=== PATIENT | male | born 1945 | race Hispanic/Latino ===

== ENCOUNTER → 2020-11-12 | Outpatient (CLI) | payer OTHER | END | disposition home or self-care (01) | LOC: RAH 14:41 | PROVIDERS: ATTEND Physical Medicine & Rehabilitation | DX: S99.921A Unspecified injury of right foot, initial encounter (principal); M19.012 Primary osteoarthritis, left shoulder; M81.0 Age-related osteoporosis without current pathological fracture; M79.89 Other specified soft tissue disorders; M75.42 Impingement syndrome of left shoulder; X58.XXXA Exposure to other specified factors, initial encounter; Y93.89 Activity, other specified; Y92.89 Other specified places as the place of occurrence of the external cause; Y99.8 Other external cause status | CPT/HCPCS: 73030; 73630 ==

== ENCOUNTER → 2022-06-25 | Outpatient (CLI) | payer OTHER | END | disposition home or self-care (01) | LOC: RAH 13:42 | PROVIDERS: ATTEND Physical Medicine & Rehabilitation | DX: M47.816 Spondylosis without myelopathy or radiculopathy, lumbar region (principal); M51.37 Other intervertebral disc degeneration, lumbosacral region; M48.07 Spinal stenosis, lumbosacral region; G82.22 Paraplegia, incomplete; Z88.8 Allergy status to other drugs, medicaments and biological substances | CPT/HCPCS: 72148 ==

== ENCOUNTER → 2022-07-31 | Outpatient (CLI) | payer OTHER | END | disposition home or self-care (01) | LOC: RAH 10:37 | PROVIDERS: ATTEND Physical Medicine & Rehabilitation | DX: M48.02 Spinal stenosis, cervical region (principal); M47.812 Spondylosis without myelopathy or radiculopathy, cervical region | CPT/HCPCS: 72141 ==

== ENCOUNTER → 2022-11-26 | Outpatient (CLI) | payer OTHER | END | disposition home or self-care (01) | LOC: RAH 12:49 | PROVIDERS: ATTEND Internal Medicine | DX: R22.42 Localized swelling, mass and lump, left lower limb (principal) | CPT/HCPCS: 93971 ==

== ENCOUNTER 2024-07-15 07:54 | Inpatient (IN) | payer OTHER ==
[2024-07-12 11:40] VITALS: BP 168/79; PULSE 62; RESP 18; TEMP 97.3
[2024-07-12 11:40] LABS: BASOPHILS # (AUTO) 0.05 K/uL (0.00-0.20); BASOPHILS % (AUTO) 0.8 % (0.0-5.0); EOSINOPHILS # (AUTO) 0.14 K/uL (0.00-0.70); EOSINOPHILS % (AUTO) 2.3 % (0.0-8.0); HEMATOCRIT 36.7 % (42-54); IMMATURE GRANULOCYTE ABSOLUTE 0.01 K/uL (0-1); LYMPHOCYTES # (AUTO) 0.9 K/uL (1.0-4.8); LYMPHOCYTES % (AUTO) 14.9 % (21.0-51.0); MEAN CORPUSCULAR HEMOGLOBIN 26.4 pg (27.0-33.0); MEAN CORPUSCULAR HGB CONC 32.2 g/dL (32.0-36.0); MEAN CORPUSCULAR VOLUME 82.1 fL (79-99); MONOCYTES # (AUTO) 0.3 K/uL (0.1-1.0); MONOCYTES % (AUTO) 5.6 % (3.0-13.0); NEUTROPHILS # (AUTO) 4.7 K/uL (1.8-7.7); NEUTROPHILS % (AUTO) 76.2 % (40.0-77.0); PLATELET COUNT (AUTO) 259 K/uL (130-400); RED BLOOD CELL COUNT(AUTO) 4.47 MIL/uL (4.50-6.20); RED CELL DISTRIBUTION WIDTH 14.8 % (11.0-15.5); WHITE BLOOD COUNT (AUTO) 6.1 K/uL (4.8-10.8)
--- NOTE | 2024-07-12 11:54 | EKG ---
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
[2024-07-12 12:04] LABS: INR <= 0.93 (0.85-1.15); PROTHROMBIN TIME 10.5 SEC (9.6-11.6)
[2024-07-12 12:05] LABS: PARTIAL THROMBOPLASTIN TIME 31.7 SEC (26.3-35.5)
[~2024-07-15] VITALS: Ht 167.6 cm; Wt 71.2 kg
[2024-07-15] VITALS (28 sets, daily range): BP systolic 121–160; BP diastolic 56–76; PULSE 52–83; RESP 14–19; TEMP 96.9–98.9
[2024-07-15 08:59] LABS: CREATININE 0.8 mg/dL (0.5-1.3); POTASSIUM 4.2 mmol/L (3.5-5.1)
[2024-07-15] MEDS ORDERED: amlodipine PO (08:59)
[2024-07-15] MEDS ORDERED: METF-444 PO ×2 (08:59)
[2024-07-15] MEDS ORDERED: levothyroxine (08:59)
[2024-07-15] MEDS ORDERED: LOSA1TAB54 PO (08:59)
[2024-07-15] MEDS: ceFAZolin SODIUM 2 GM VIAL ONE ×2 (09:08)
[2024-07-15] MEDS: 0.9%NACL 1000ML 1,000 ML IV ONE ×2 (09:08)
[2024-07-15] MEDS ORDERED: ondanSETRON 4MG INJ ONE (10:15)
[2024-07-15] MEDS ORDERED: dexaMETHasone SOD PHOSPHATE 4 MG/ML 1ML VIAL ONE (10:15)
[2024-07-15] MEDS ORDERED: proPOFol 10 MG/ML 20ML VIAL IV ONE (10:15)
[2024-07-15] MEDS ORDERED: LIDOCAINE PF 100MG/5ML (2%) SYRINGE 5ML ONE (10:15)
[2024-07-15] MEDS ORDERED: rocuRONium bROMide 10MG/1ML 5ML VL ONE (10:16)
[2024-07-15] MEDS ORDERED: FENTanyl CITRate PF 50 MCG/1 ML 2ML VIAL ONE (10:16)
[2024-07-15] MEDS: ceFAZolin SODIUM 2 GM VIAL IVPB ONE (10:31)
[2024-07-15] MEDS ORDERED: NEOSTIGMINE METHYLSULFATE 1MG/ML IV ONE (11:32)
[2024-07-15] MEDS ORDERED: GLYCOPYRROLATE 0.2 MG/ML 5 ML VIAL ONE (11:32)
--- NOTE | 2024-07-15 14:03 | OP ---
Operative Note: DATE OF PROCEDURE: 07/15/24 SURGEON: ANISA BEJARANO MD MANAGER RFID: [] ANESTHESIA: general ANESTHESIOLOGIST/FILM CRITIC: Gerber ABREU PREOPERATIVE DIAGNOSIS: Nonhealing sacral ulcer measuring 5 x 6 cm POSTOPERATIVE DIAGNOSIS: Same SYNOPSIS: [] PROCEDURE: Sharp excisional debridement of sacral ulcer of skin and subcutaneous tissue, skin advancement flaps of 80 sq cm ESTIMATED BLOOD LOSS: 10 cc INDICATIONS: Nonhealing ulcer needing debridement and skin advancement flaps for closure Devices left in place: Seven [place] flat drain DESCRIPTION OF PROCEDURE: Patient was brought to the operating room placed on the operating table in a supine position. Once general endotracheal anesthesia was achieved patient was positioned into a prone position and his gluteal and perirectal area were prepped and draped in sterile fashion. I then proceeded to evaluate the sacral ulcer. The inferior edge of the ulcer is at the anal verge. The ulcer is flat and has granulation tissue and rolled edges. It measures 5 x 6 cm in size. I then proceeded to sharply debride the edges to remove the rolled edges of the entire diameter of the ulcer. And then proceeded to create a midline incision through the ulcer to expose subcutaneous tissue. Then created full-thickness skin and subcutaneous tissue flaps on to each side of the buttocks. And inferiorly to the anal verge. Superiorly there was another scar area from a previous ulcer that had already healed and we released the scar at the sub cutaneous tissue level. Once we had done the advancement flaps I measured the tissue planes and we had extended it to a 10 x 8 cm in size within each direction making the advancement of 80 centimeters squared. I then started to take the edges of the granulation tissue off the skin edge on the inferior lateral borders of the ulcer and brought this healthy skin and approximated it to the anal verge that way there was healthy tissue at the anal verge and not ulcer edges. We approximated the skin to the anal verge with interrupted nylon sutures in horizontal mattress. Once that was done I then proceeded to advance the muscle and subcutaneous tissue at the deep fascial planes with interrupted horizontal mattress 3-0 Vicryl sutures. Placed a drain over top of the layer. The granulation tissue that had been exposed in the ulcer was completely undermined at this point and decision is made to roll it under to the subcutaneous tissue to allow more thickness to the tissue at the midline. And to be able to have this tissue heal I then debrided all the granulation tissue with sharp debridement to create new healing. And then I folded it underneath on each side securing it laterally with 2-0 Vicryl suture. I then proceeded to place deep dermal sutures at the midline to close the defect. And this was done with horizontal mattress 2-0 Vicryl sutures. Skin was then closed with horizontal mattress nylon sutures in interrupted fashion. At the end of the procedure the wound was completely closed. Drain was secured in place. All counts were correct x2 at the end of the procedure. Patient tolerated the procedure well. ANISA BEJARANO MD Jul 15, 2024 14:03
[2024-07-15] MEDS: doCUSate SODIUM 100 MG CAP PO SCH (20:38)
[2024-07-16] VITALS: BP 115/52; PULSE 70; RESP 18; TEMP 98.1
[2024-07-16 04:00] VITALS: BP 124/64; PULSE 63; RESP 17; TEMP 97.7
--- NOTE | 2024-07-16 07:34 | PN ---
Postop day one from sacral wound closure with advancement flaps. No acute events overnight. JAMARI drain with 10 cc output. Vitals stable Wound with dressing intact. Not removed JAMARI drain in place Assessment and plan mutual fund manager to work today on placement. Patient needs assistance to be able to not put any pressure on the incision to have the full-thickness advancement flaps heal. Patient needs to be lateral and reposition every 3 hours to avoid any new ulcers developing. Him and his can not do this at home and he will need placement. As soon as placement is available we will discharge patient. Vitals/Labs Vital Signs Date Time Temp Pulse Resp B/P (MAP) Pulse Ox O2 Delivery O2 Flow Rate FiO2 07/16/24 04:00 97.7 63 17 124/64 96 Room Air 07/15/24 20:00 0 21 Laboratory Tests 07/15/24 08:43 Medications Current Medications Cefazolin Sodium 2 gm STK-MED ONCE .ROUTE; Start 07/15/24 at 07:43; Stop 07/15/24 at 07:49; Status DC Sodium Chloride 1,000 ml @ As Directed STK-MED ONCE IV; Start 07/15/24 at 07:43; Stop 07/15/24 at 07:49; Status DC Cefazolin Sodium 2 gm STK-MED ONCE .ROUTE; Start 07/15/24 at 07:44; Stop 07/15/24 at 07:49; Status DC Sodium Chloride 1,000 ml @ As Directed STK-MED ONCE IV Last administered on 07/15/24at 09:08; Start 07/15/24 at 07:44; Stop 07/15/24 at 07:49; Status DC Lidocaine HCl 100 mg STK-MED ONCE .ROUTE; Start 07/15/24 at 10:15; Stop 07/15/24 at 10:15; Status DC Dexamethasone Sodium Phosphate 4 mg STK-MED ONCE .ROUTE; Start 07/15/24 at 10:15; Stop 07/15/24 at 10:15; Status DC Ondansetron HCl 4 mg STK-MED ONCE .ROUTE; Start 07/15/24 at 10:15; Stop 07/15/24 at 10:15; Status DC Propofol 200 mg STK-MED ONCE IV; Start 07/15/24 at 10:15; Stop 07/15/24 at 10:16; Status DC Rocuronium [place] 50 mg STK-MED ONCE .ROUTE; Start 07/15/24 at 10:16; Stop 07/15/24 at 10:16; Status DC Fentanyl Citrate 100 mcg STK-MED ONCE .ROUTE; Start 07/15/24 at 10:16; Stop 07/15/24 at 10:16; Status DC Cefazolin Sodium 2 gm STK-MED ONCE IVPB Last administered on 07/15/24at 10:31; Start 07/15/24 at 10:31; Stop 07/15/24 at 11:12; Status DC Glycopyrrolate 1 mg STK-MED ONCE .ROUTE; Start 07/15/24 at 11:32; Stop 07/15/24 at 11:32; Status DC Neostigmine Methylsulfate 10 mg STK-MED ONCE IV; Start 07/15/24 at 11:32; Stop 07/15/24 at 11:32; Status DC Acetaminophen 650 mg Q6H PRN PO; Start 07/15/24 at 19:30; Stop 08/14/24 at 19:29 Docusate Sodium 100 mg BID PO Last administered on 07/15/24at 20:38; Start 07/15/24 at 21:00; Stop 08/14/24 at 20:59 Metformin HCl 500 mg DAILYDINNER PO; Start 07/16/24 at 17:00; Stop 08/15/24 at 16:59 Miscellaneous Medication 1 tab DAILY PO; Start 07/16/24 at 09:00; Stop 08/15/24 at 08:59; Status UNV Amlodipine Besylate 5 mg DAILY PO; Start 07/16/24 at 09:00; Stop 08/15/24 at 08:59 Losartan Potassium 100 mg DAILY PO; Start 07/16/24 at 09:00; Stop 08/15/24 at 08:59 Hydrochlorothiazide 25 mg DAILY PO; Start 07/16/24 at 09:00; Stop 08/15/24 at 08:59 ANISA BEJARANO MD Jul 16, 2024 07:34
[2024-07-16 08:00] VITALS: BP 124/57; PULSE 67; RESP 18; TEMP 98.5; O2SAT 98
[2024-07-16] MEDS ORDERED: NON-FORMULARY MEDICATION 1 EACH (Losartan/Hydrochlorothiazide (Losartan-Hctz 100-25 mg Tab PO SCH (09:00)
[2024-07-16] MEDS: hydroCHLOROthiazide 25 MG TABLET PO SCH (09:45)
[2024-07-16] MEDS: amLODIPine 5 MG TAB PO SCH (09:45)
[2024-07-16] MEDS: LoSARTan 100 MG TABLET PO SCH (09:46)
[2024-07-16 12:00] VITALS: BP 153/72; PULSE 66; RESP 18; TEMP 98.1
--- NOTE | 2024-07-16 14:49 | NUR ---
INITIAL ASSESSMENT Patient lives with spouse, Anna Cheung. [facility] No PHC services. DME: wheelchair, electric & manual wheelchair, shower bench, glucometer (no insulin). Patient needs help with ADLs but is able to drive. Family assists as needed. PCP is Dr. Kenisha Henry. Pharmacy is [facility] on [address] [facility]. Patient has no issues with having stable fpc to live in or transportation. He and spouse have lived in their home for some time. No concerns voiced regarding not having enough food in the home. No safety concerns voiced regarding returning home. DCP is home. Addendum: 07/16/24 at 1452 by DAVIDSON SIM Amended: Links added.
--- NOTE | 2024-07-16 14:52 | NUR ---
EMERGENCY CONTACT Anna Cheung (spouse) [phone]
[2024-07-16 16:00] VITALS: BP 158/69; PULSE 72; RESP 18; TEMP 98.9
[2024-07-16] MEDS: metFORmin HCL 500 MG TABLET PO SCH (16:47)
[2024-07-16 20:00] VITALS: BP 141/49; PULSE 83; RESP 20; TEMP 99.8; O2SAT 98
[2024-07-17] VITALS: BP 128/64; PULSE 83; RESP 20; TEMP 98.9
[2024-07-17 04:00] VITALS: BP 107/62; PULSE 95; RESP 20; TEMP 98.7
[2024-07-17 08:00] VITALS: BP 126/69; PULSE 79; RESP 16; TEMP 98.7; O2SAT 97
--- NOTE | 2024-07-17 10:58 | NUR ---
cm note met with pt and spouse and discussed md orders for snf referral for wound care, daily dressings and drain management. provided list of in network snfs, requested to ask md regarding snfs, call made to her PCP dr. Henry, and updated her that pt doesn't wish to go to [facility]) and would like for her to recommend a facility. dr Henry said any in network is fine, but if family doesnt have a preference then and do not want [facility]) then [facility] if in network. updated pt and spouse and this and they state they will speak to their family and decide. and call cm back.
[2024-07-17 12:00] VITALS: BP 129/49; PULSE 78; RESP 18; TEMP 98.2
[2024-07-17 15:35] VITALS: BP 144/75; PULSE 84; RESP 16; TEMP 99.6
--- NOTE | 2024-07-17 16:58 | NUR ---
cm note followup made with pt regarding decision for snf referral. states that he needs more time to decide due to family is reviewing list and is requesting CM to followup tomorrow.
[2024-07-17 20:00] VITALS: BP 152/61; PULSE 80; RESP 17; TEMP 100; O2SAT 93
[2024-07-17] MEDS: acetaMINOPHEN 325 MG TAB PO PRN (20:51)
[2024-07-18] VITALS: BP 110/64; PULSE 84; RESP 16; TEMP 99.7
[2024-07-18 04:00] VITALS: BP 105/47; PULSE 68; RESP 16; TEMP 98.9
[2024-07-18 08:00] VITALS: BP 113/56; PULSE 78; RESP 19; TEMP 100.4; O2SAT 96
[2024-07-18] MEDS: SENNOSIDES 8.6 MG TABLET PO PRN (09:25)
[2024-07-18 12:00] VITALS: BP_SYST 126; BP_SYST 147; BP_DIAS 62; BP_DIAS 72; PULSE 65; PULSE 70; RESP 19; TEMP 97.8; TEMP 98.5
[2024-07-18] MEDS: LACTULOSE 20 GM/30 ML UDCUP PO PRN (12:40)
[2024-07-18] MEDS: BisaCODYL 10 MG SUPP.RECT RC PRN (15:30)
[2024-07-18 16:00] VITALS: BP 116/62; PULSE 88; RESP 19; TEMP 98.4
[2024-07-18 20:00] VITALS: BP 122/52; PULSE 87; RESP 18; TEMP 99.5; O2SAT 97
[2024-07-19] VITALS (7 sets, daily range): BP systolic 94–126; BP diastolic 43–67; PULSE 70–83; RESP 17–20; TEMP 97.9–101; O2SAT 98
--- NOTE | 2024-07-19 14:22 | PN ---
This is an 78-year-old male who is POD # four from skin flap for sacral ulcer. Doing well. Wound is clean dry and intact. Patient is okay for discharge from a surgical standpoint. Currently pending placement. Continue with current wound care. Vitals/Labs Vital Signs Date Time Temp Pulse Resp B/P (MAP) Pulse Ox O2 Delivery O2 Flow Rate FiO2 07/19/24 11:40 98.1 75 20 112/53 100 Room Air 21 07/19/24 08:00 0 GEORGE DAVIES DO Jul 19, 2024 14:22
[2024-07-20] VITALS: BP 92/45; PULSE 72; RESP 17; TEMP 99.1
[2024-07-20 03:49] VITALS: BP 108/54; PULSE 72; RESP 17; TEMP 98.1
[2024-07-20 08:00] VITALS: BP 98/46; PULSE 72; RESP 18; TEMP 97.8; O2SAT 97
[2024-07-20 12:00] VITALS: BP 115/50; PULSE 68; RESP 18; TEMP 98.1
--- NOTE | 2024-07-20 16:56 | PN ---
Status post advancement flap of the sacral area. No acute events overnight. Patient tolerating his diet. Incision reviewed. There is some drainage from the incision that is serous no cellulitis. But it staying moist. Assessment and plan Change dressing twice a day and keep a dry dressing and clean with a Vashe. If wet change as needed p.r.n. we need to keep the skin clean and intact.. Patient is okay to sit upright when eating. And then beyond the side without any pressure onto the midline wound. JAMARI drain with sanguinous output no signs of purulence. No signs of infection. Patient did have a temperature of a 100.1, we will start incentive spirometer. Still pending on placement to be approved. Once placement is approved okay to discharge. Vitals/Labs Vital Signs Date Time Temp Pulse Resp B/P (MAP) Pulse Ox O2 Delivery O2 Flow Rate FiO2 07/20/24 12:00 98.1 68 18 115/50 100 Room Air 07/19/24 20:00 0 21 Medications Current Medications Cefazolin Sodium 2 gm STK-MED ONCE .ROUTE; Start 07/15/24 at 07:43; Stop 07/15/24 at 07:49; Status DC Sodium Chloride 1,000 ml @ As Directed STK-MED ONCE IV; Start 07/15/24 at 07:43; Stop 07/15/24 at 07:49; Status DC Cefazolin Sodium 2 gm STK-MED ONCE .ROUTE; Start 07/15/24 at 07:44; Stop 07/15/24 at 07:49; Status DC Sodium Chloride 1,000 ml @ As Directed STK-MED ONCE IV Last administered on 07/15/24at 09:08; Start 07/15/24 at 07:44; Stop 07/15/24 at 07:49; Status DC Lidocaine HCl 100 mg STK-MED ONCE .ROUTE; Start 07/15/24 at 10:15; Stop 07/15/24 at 10:15; Status DC Dexamethasone Sodium Phosphate 4 mg STK-MED ONCE .ROUTE; Start 07/15/24 at 10:15; Stop 07/15/24 at 10:15; Status DC Ondansetron HCl 4 mg STK-MED ONCE .ROUTE; Start 07/15/24 at 10:15; Stop 07/15/24 at 10:15; Status DC Propofol 200 mg STK-MED ONCE IV; Start 07/15/24 at 10:15; Stop 07/15/24 at 10:16 ; Status DC Rocuronium [place] 50 mg STK-MED ONCE .ROUTE; Start 07/15/24 at 10:16; Stop 07/15/24 at 10:16; Status DC Fentanyl Citrate 100 mcg STK-MED ONCE .ROUTE; Start 07/15/24 at 10:16; Stop 07/15/24 at 10:16; Status DC Cefazolin Sodium 2 gm STK-MED ONCE IVPB Last administered on 07/15/24at 10:31; Start 07/15/24 at 10:31; Stop 07/15/24 at 11:12; Status DC Glycopyrrolate 1 mg STK-MED ONCE .ROUTE; Start 07/15/24 at 11:32; Stop 07/15/24 at 11:32; Status DC Neostigmine Methylsulfate 10 mg STK-MED ONCE IV; Start 07/15/24 at 11:32; Stop 07/15/24 at 11:32; Status DC Acetaminophen 650 mg Q6H PRN PO Last administered on 07/17/24at 20:51; Start 07/15/24 at 19:30; Stop 08/14/24 at 19:29 Docusate Sodium 100 mg BID PO Last administered on 07/20/24at 10:14; Start 04/29 at 21:00; Stop 08/14/24 at 20:59 Metformin HCl 500 mg DAILYDINNER PO Last administered on 07/19/24at 19:39; Start 07/16/24 at 17:00; Stop 08/15/24 at 16:59 Miscellaneous Medication 1 tab DAILY PO; Start 07/16/24 at 09:00; Stop 08/15/24 at 08:59; Status UNV Amlodipine Besylate 5 mg DAILY PO Last administered on 07/19/24at 14:32; Start 07/16/24 at 09:00; Stop 08/15/24 at 08:59 Losartan Potassium 100 mg DAILY PO Last administered on 07/18/24at 15:30; Start 07/16/24 at 09:00; Stop 08/15/24 at 08:59 Hydrochlorothiazide 25 mg DAILY PO Last administered on 07/18/24at 15:30; Start 07/16/24 at 09:00; Stop 08/15/24 at 08:59 Sennosides 3 tab DAILY PRN PO Last administered on 07/18/24at 09:25; Start 07/17/24 at 11:00; Stop 08/16/24 at 10:59 Lactulose 20 gm BID PRN PO Last administered on 07/18/24at 12:40; Start 07/17/24 at 11:00; Stop 08/16/24 at 10:59 Bisacodyl 10 mg DAILY PRN RC Last administered on 07/18/24at 15:30; Start 07/17/24 at 11:00; Stop 08/16/24 at 10:59 Home Med (linzess 290 MCG) DAILYPRN PRN PO Last administered on 07/18/24at 11:39; Start 07/17/24 at 12:30; Stop 08/16/24 at 12:29 ANISA BEJARANO MD Jul 20, 2024 16:56
[2024-07-20 21:16] VITALS: BP 123/55; PULSE 96; RESP 18; TEMP 99.6
[2024-07-21] VITALS (7 sets, daily range): BP systolic 104–155; BP diastolic 45–70; PULSE 75–94; RESP 18–21; TEMP 98–101.5
--- NOTE | 2024-07-21 16:50 | PN ---
GENERAL SURGERY PROGRESS NOTE Date/Time Patient Seen: 07/21/2024 2162 Problem List: Sacral ulcer status post flap coverage Interval History: Patient has no complaints. Nursing reports that there is a foul odor to the NG tube output. Output is under the otherwise unchanged. Nursing also reports that the patient seems a little less energetic today than usual. Current Medications Medications (Trade) Dose Ordered Sig/Luz Maria Route Start Time Stop Time Status Last Admin Dose Admin Amlodipine Besylate (NorvASC 5MG TAB) 5 mg DAILY PO 07/16/24 09:00 08/15/24 08:59 07/20/24 17:30 5 MG Docusate Sodium (COLace 100MG CAP) 100 mg BID PO 07/15/24 21:00 08/14/24 20:59 07/21/24 07:42 100 MG Hydrochlorothiazide (hydroCHLOROthiazide 25MG) 25 mg DAILY PO 07/16/24 09:00 08/15/24 08:59 07/18/24 15:30 25 MG Losartan Potassium (CozAAR 100MG TAB) 100 mg DAILY PO 07/16/24 09:00 08/15/24 08:59 07/18/24 15:30 100 MG Metformin HCl (glucoPHAGE) 500 mg DAILYDINNER PO 07/16/24 17:00 08/15/24 16:59 07/20/24 17:30 500 MG Miscellaneous Medication (Losartan/ Hydrochlorothiazide (Losartan-Hctz 100-25 mg Tab)) 1 tab DAILY PO 07/16/24 09:00 08/15/24 08:59 UNV Physical Examination: GENERAL: No acute distress. HEAD: Normal with no signs of head trauma. LUNGS: Respirations nonlabored HEART: Regular rate and rhythm ABD: Soft, nondistended, nontender, no rebound, no guarding : Not examined Wound: Incision is clean dry and intact with JAMARI drain in place with ser osanguineous output EXT: Paraplegic SKIN: No rashes or lesions noted. NEURO: Awake, alert, and oriented x3. No focal sensory or strength deficits noted. Vital Signs (last 8hr) Date Time Temp Pulse Resp B/P (MAP) Pulse Ox O2 Delivery O2 Flow Rate FiO2 07/21/24 12:00 98.8 80 18 104/55 97 Room Air Laboratory: Chemistry Labs: Test 1/16/25 16:13 07/21/24 05:23 Range/Units Whole Blood Glucose 178 H 70-110 MG/DL Bedside Glucose Comment Notified Nurse Diagnostics / Radiology: No new imaging Impression and Plan: This is an 78-year-old male POD # six from flap coverage of sacral decubitus ulcer. Drainage from the wound is foul smelling and patient is a little lethargic. We will start Zosyn Q 8 hours. We will check CBC tomorrow. Continue with current wound care. Continue observation in the hospital. GEORGE DAVIES DO Jul 21, 2024 16:50
[2024-07-21] MEDS: ZOSYN 3.375GM +NS 50ML IV SCH (18:56)
[2024-07-22] VITALS (8 sets, daily range): BP systolic 95–142; BP diastolic 41–60; PULSE 72–81; RESP 16–20; TEMP 98.5–100.5; O2SAT 98
[2024-07-22 05:08] LABS: BASOPHILS # (AUTO) 0.05 K/uL (0.00-0.20); BASOPHILS % (AUTO) 0.6 % (0.0-5.0); EOSINOPHILS # (AUTO) 0.19 K/uL (0.00-0.70); EOSINOPHILS % (AUTO) 2.4 % (0.0-8.0); IMMATURE GRANULOCYTE ABSOLUTE 0.04 K/uL (0-1); MEAN CORPUSCULAR HEMOGLOBIN 26.6 pg (27.0-33.0); MEAN CORPUSCULAR HGB CONC 32.9 g/dL (32.0-36.0); MEAN CORPUSCULAR VOLUME 80.9 fL (79-99); MONOCYTES # (AUTO) 0.7 K/uL (0.1-1.0); MONOCYTES % (AUTO) 8.4 % (3.0-13.0); NEUTROPHILS % (AUTO) 75.1 % (40.0-77.0); PLATELET COUNT (AUTO) 235 K/uL (130-400); RED BLOOD CELL COUNT(AUTO) 3.46 MIL/uL (4.50-6.20)
--- NOTE | 2024-07-22 17:00 | PN ---
Postop day seven after debridement and closure of a sacral ulcer with a advance been skin transfer. Patient is doing okay. He is hemodynamically stable. White count is normal and has no fever. JAMARI putting about 20-30 cc a shift and according to the nurses starting to be ill foul-smelling. I look at the wound and there is no redness no evidence of purulence. The skin does slightly macerated. Patient has been complaining of inability to move the left arm and swelling. I have agree with the nurses to do an ultrasound and I also requested a hospitalist consultation for medical management of the patient. Continue same management plan Vitals/Labs Vital Signs Date Time Temp Pulse Resp B/P (MAP) Pulse Ox O2 Delivery O2 Flow Rate FiO2 07/22/24 11:48 99.0 77 18 113/41 96 Room Air 21 07/22/24 08:00 0 Laboratory Tests 07/22/24 04:45 WARD YOUNGER MD Jul 22, 2024 17:00
--- NOTE | 2024-07-22 19:22 | CONS ---
[facility] CONSULTATION NOTE Date of Service: Jul 22, 2024 Reason for Consultation: [ Medical Management ] Requesting Physician: [ Dr.Carlos Lozoya ] HISTORY OF PRESENT ILLNESS: This is an 78 year old male with past medical history of hypertension ,diabetes, hyperlipidemia, hypothyroidism, neurogenic bladder , incomplete paraplegia and arthritis who was admitted on 07/15/2024 secondary to nonhealing sacral ulcer measuring 5x6 cm and patient underwent a debridement and skin advancement flaps for closure with JAMARI drain placement on 07/15/2024 performed by .Today is post op day #7 and patient has been running a Temperature of 100.6 around 4pm today and reportedly JAMARI drainage started to become foul smelling and patient is complaining of pain on his left elbow and unable to straightened left arm completely due to pain and patient has bilateral hands swelling and redness.Patient is on Zosyn IV Q8H. Seen and examined patient in room 418 awake,alert and coherent appears comf ortable and in no apparent distress.Patient states he has been dealing with chronic body pains specially on hil left arm and both hands because he has arthritis for almost 5 years now.Patient also reports he does self catheterization Q4H at home .Patient denies fever,chills,chest pain,palpitation,cough shortness of breath,nausea and vomiting.Patient denies fall and trauma/injury to the said left arm.Primary nurse was at bedside during my evaluation and V/S reported was stable and patient is afebrile at this time.Hospitalist is consulted by for medical management. REVIEW OF SYSTEMS CONSTITUTIONAL: Denies fevers, chills, or night sweats. No unintentional weight loss reported. NEUROLOGICAL: Patient is bedbound,paraplegic to both lower extremities and complained of left arm pain and swollen Denies headache, ENT: No hearing loss, otalgia, otorrhea, rhinitis, rhinorrhea, hoarseness, or sore throat. CARDIOVASCULAR: Denies any exertional angina, dyspnea on exertion, orthopnea, paroxysmal nocturnal dyspnea, palpitations, life-threatening arrhythmias, claudication. PULMONARY: Denies any shortness of breath, cough, phlegm/sputum, hemoptysis, pleuritic chest pain. SLEEP: Denies morning headaches, daytime somnolence or napping. Denies difficulty falling asleep, staying asleep, waking from sleep. Denies knowledge of snoring. GASTROINTESTINAL: Denies any type of dysphagia to either liquids or solids. Denies nausea, vomiting, pyrosis, early satiety, abdominal pain, diarrhea, constipation, or changes in stool consistency or caliber. Denies coffee-ground emesis, hematemesis, hematochezia, or melanotic stools. GENITOURINARY: Denies frequency, urgency, nocturia, hematuria and dysuria ENDOCRINOLOGIC: Denies polyuria, polydipsia, polyphagia or heat/cold intolerances. HEMATOLOGIC: Denies thrombophilia/previous clots, or coagulopathy/bleeding disorders. ONCOLOGIC: Denies personal history of malignancy. DERMATOLOGIC:Non healing sacral ulcer S/P debridement with JAMARI in place. PSYCHIATRIC: Denies any suicidal or homicidal ideation. Denies hallucinations. PAST MEDICAL HISTORY: [ hypertension ,diabetes, hyperlipidemia, hypothyroidism, neurogenic bladder , incomplete paraplegia and arthritis who was admitted on 07/15/2024 secondary to nonhealing sacral ulcer ] PAST SURGICAL HISTORY: [ Non reported] PAST SOCIAL HISTORY: [ Patient lives with and patient is bedbound .Patient denies alcohol,cigarette and recreational drug use ] FAMILY HISTORY: [ Diabetes, cardiovascular disease and hypertension ] Coded Allergies: Iodinated Contrast Media - IV Dye (Unverified Allergy, Mild, HIVES, 10/19/15) PHYSICAL EXAM GENERAL APPEARANCE: The patient is awake, alert, and oriented, in no acute cardiopulmonary distress. NEUROLOGICAL: paraplegic to both lower extremities.left arm contracted and both lower extremities HEENT: Face is symmetric. Pupils are equal and reactive. Extraocular movements are intact. NECK: Supple. No JVD. No thyromegaly. No submental, submandibular, pre- /postauricular, occipital or supraclavicular lymphadenopathy. CHEST: Normal chest expansion. No Telemetry. LUNGS: Absence of any rales, rhonchi or any wheezing. CARDIOVASCULAR: Regular. S1 and S2 normal. No appreciable rubs, murmurs or gallops. ABDOMEN: Soft, nontender, and nondistended. There is no rebound, voluntary guarding, or rigidity. : Deferred. [place]. EXTREMITIES: Good capillary refill.Both hands swollen and left armn swollen as well SKIN: Surgical incision to sacral area S/P debridement and skin flap with JAMARI drain placement .Redness to both hands Vital Sign (Last 24 Hours) 07/22/24 07/22/24 08:00 16:00 Temp 100.6 Pulse 81 Resp 16 B/P (MAP) 123/60 Pulse Ox 98 O2 Delivery Room Air O2 Flow Rate 0 FiO2 21 Intake & Output (last 24hrs) 07/21/24 07/21/24 07/22/24 15:00 23:00 07:00 Intake Total 1000 ml Output Total 640 ml Balance 360 ml LABS: Laboratory: Test 07/22/24 16:40 07/22/24 04:45 Range/Units Whole Blood Glucose 195 H 70-110 MG/DL Bedside Glucose Comment Notified Nurse White Blood Count 8.0 4.8-10.8 K/uL Red Blood Count 3.46 L 4.50-6.20 MIL/uL Hemoglobin 9.2 L 14.0-18.0 g/dL Hematocrit 28.0 L 42-54 % Mean Corpuscular Volume 80.9 79-99 fL Mean Corpuscular Hemoglobin 26.6 L 27.0-33.0 pg Mean Corpuscular Hemoglobin Concent 32.9 32.0-36.0 g/dL Red Cell Distribution Width 14.0 11.0-15.5 % Platelet Count 235 130-400 K/uL Mean Platelet Volume 11.3 H 7.5-10.5 fL Immature Granulocyte % (Auto) 0.5 0-1 % Neutrophils (%) (Auto) 75.1 40.0-77.0 % Lymphocytes (%) (Auto) 13.0 L 21.0-51.0 % Monocytes (%) (Auto) 8.4 3.0-13.0 % Eosinophils (%) (Auto) 2.4 0.0-8.0 % Basophils (%) (Auto) 0.6 0.0-5.0 % Neutrophils # (Auto) 6.0 1.8-7.7 K/uL Lymphocytes # (Auto) 1.0 1.0-4.8 K/uL Monocytes # (Auto) 0.7 0.1-1.0 K/uL Eosinophils # (Auto) 0.19 0.00-0.70 K/uL Basophils # (Auto) 0.05 0.00-0.20 K/uL Absolute Immature Granulocyte (auto 0.04 0-1 K/uL Nucleated Red Blood Cells 0.0 0.0-0.19 % DIAGNOSTICS / RADIOLOGY: [ ] ASSESSMENT: Non healing sacral ulcer S/P debridement and skin advancement flaps for closure with JAMARI drain placement on 07/15/2024 performed by Acute anemia POA Hyponatremia POA Uncontrolled Diabetes POA Neurogenic bladder POA Left arm pain POA Incomplete paraphlegia POA PLAN: Will continue to admit patient in medical surgical floor Will continue IV Antibiotic Will start on consistent carb diet Will check blood sugar AC and HS and start on insulin sliding scale with hypoglycemia protocol Will replace electytrolytes as needed per protocol Will check labs in am Continue admission orders per primary Further recommendations to follow depending upon hospitalization course Case discussed with the attending MD and came up with the above treatment and plan of care ADVANCED CARE PLANNING 1. Which of the following were discussed? Hospice Care - No Therapeutic options - Yes Advance Directives - No Other discussions - 2. Discussed with who? Patient 3. Voluntary nature of this service was explained to the patient? Yes 4. Amount of time spent - __19 5. Reviewed by Physician? (if this service was performed by NPP) Yes Patient seen and examined by me. Agree with note by REPORTING ANALYST SEE ADDITIONAL ORDERS PER CHART DISCUSSED WITH NURSING STAFF BETSY ROACH RESIDENTIAL SUPPORT SPECIALIST Jul 22, 2024 19:22
[2024-07-22] MEDS ORDERED: DEXTROSE 50%-WATER 50 ML DISP.SYRIN IV PRN (21:00)
[2024-07-22] MEDS: INSULIN humuLIN R 100 UNIT/ML 3ML SQ SCH (21:00)
[2024-07-22] MEDS ORDERED: PoTASSium chloRIDE 20MEQ/100ML 100 ML IV PRN (21:00)
[2024-07-22] MEDS ORDERED: GLUCAGON 1MG KIT 1 MG ML IM PRN (21:00)
[2024-07-22] MEDS ORDERED: MAGNESIUM 2GM PREMIX 50ML 50 ML IV PRN (21:00)
[2024-07-22] MEDS ORDERED: PoTASSium chloRIDE 20MEQ ER 20 MEQ ERTAB PO PRN (21:00)
[2024-07-22] MEDS ORDERED: PoTASSium chl 10% ELIXIR 20MEQ 20 MEQ/15 ML UDCUP PO PRN (21:00)
[2024-07-22] MEDS: traMADol HCL 50 MG TABLET PO ONE (21:07)
--- NOTE | 2024-07-22 21:30 | HMCIMG ---
US VENOUS DOPPLER BILATERAL HISTORY: Upper extremity swelling COMPARISON: None TECHNIQUE: Bilateral upper extremity venous Doppler ultrasound study was performed. FINDINGS: There is thrombosed right cephalic vein with no identified flow in the vessels and compressibility. The bilateral upper extremity veins otherwise demonstrate normal appearance with flow. IMPRESSION: 1. Thrombosed right cephalic vein.
--- NOTE | 2024-07-22 21:34 | HMCIMG ---
ELBOW COMP 3+VWS LT CLINICAL HISTORY: left arm pain COMPARISON: None TECHNIQUE: AP lateral and oblique images were obtained. FINDINGS: No obvious fracture or dislocation. No joint effusion. The soft tissues appear unremarkable. No radiopaque foreign bodies. Note is made of bony osteophyte production. IMPRESSION: Degenerative change with no acute findings.
[2024-07-22] MEDS: HYDROcodone/APAP 5/325 1 TAB TABLET PO ONE (22:42)
[2024-07-22] MEDS: HEParin 5,000 UNIT VIAL SQ SCH (22:58)
--- NOTE | 2024-07-22 23:09 | NUR ---
hospitalist oscar chirinos present at bedside at 21:00. she spoke with the patient and ordered labs for the morning along with tramadol 50 mg once for left arm pain. she also ordered wound culture from the anson drain of the left buttock. systems test technician called me to tell me that the right cephalic vein had a thrombus. I called oscar chirions to let her know. she ordered heparin Q12 hours and narco for continued left elbow pain. patient is on right arm precautions. magdalena SWAN, is aware and checking his blood pressure on his legs.
--- NOTE | 2024-07-22 23:47 | NUR ---
nursing pm note patient alert and oriented times 4. plan of care discussed with him and he verbalized understanding. Patient had 2 large loose brown bowel movements tonight. Jacob and I bathed him and placed a waffle mattress. Wound cultures obtained per hospitalist from left anson drain. Wound care done on sacral area with ns, pat dry, vashe, gauze, abd pad, medipore tape. patient is incontinent. Jacob and I turn him every 2 hours and we check him for more bowel movements. Patient has a right arm thrombus on the cephalic vein. I removed his IV catheter on the right arm and placed one on the left AC. Patient has slept about 5 hours tonight. I gave him tramadol and narco for left arm pain according to hospitalist. We elevate his left arm on a pillow. Call light within reach, bed alarm on, 2 side rails up. will continue to monitor patient.
[2024-07-23] VITALS (7 sets, daily range): BP systolic 107–136; BP diastolic 45–65; PULSE 55–76; RESP 16–19; TEMP 97.7–98.6; O2SAT 97–99
[2024-07-23 05:22] LABS: BASOPHILS # (AUTO) 0.04 K/uL (0.00-0.20); BASOPHILS % (AUTO) 0.6 % (0.0-5.0); EOSINOPHILS # (AUTO) 0.19 K/uL (0.00-0.70); EOSINOPHILS % (AUTO) 2.9 % (0.0-8.0); HEMATOCRIT 27.2 % (42-54); IMMATURE GRANULOCYTE ABSOLUTE 0.03 K/uL (0-1); LYMPHOCYTES % (AUTO) 15.5 % (21.0-51.0); MEAN CORPUSCULAR HEMOGLOBIN 26.1 pg (27.0-33.0); MEAN CORPUSCULAR VOLUME 81.7 fL (79-99); MONOCYTES # (AUTO) 0.5 K/uL (0.1-1.0); MONOCYTES % (AUTO) 8.1 % (3.0-13.0); NEUTROPHILS # (AUTO) 4.8 K/uL (1.8-7.7); NEUTROPHILS % (AUTO) 72.4 % (40.0-77.0); PLATELET COUNT (AUTO) 247 K/uL (130-400); RED BLOOD CELL COUNT(AUTO) 3.33 MIL/uL (4.50-6.20); RED CELL DISTRIBUTION WIDTH 14.3 % (11.0-15.5); WHITE BLOOD COUNT (AUTO) 6.6 K/uL (4.8-10.8)
[2024-07-23 05:45] LABS: ALBUMIN 1.6 g/dL (3.5-5.0); BILIRUBIN,TOTAL 0.3 mg/dL (0.2-1.0); CREATININE 1.1 mg/dL (0.5-1.3); MAGNESIUM 2.2 mg/dL (1.80-2.40); POTASSIUM 3.9 mmol/L (3.5-5.1); TOTAL PROTEIN, SERUM 6.1 g/dL (6.0-8.3)
[2024-07-23 05:50] LABS: % IRON SATURATION 11.2 % (30-44)
[2024-07-23 06:05] LABS: HEMOGLOBIN A1C 6.3 % (4.0-6.0)
[2024-07-23 06:45] LABS: ERYTHROCYTE SEDIMENTATION RATE 122 MM/HR (0-20)
--- NOTE | 2024-07-23 11:30 | NUR ---
blood glucose 160. No insulin coverage needed at this time.
--- NOTE | 2024-07-23 13:50 | HMCIMG ---
CHEST 1VW REASON: fever on and off COMPARISON: None. FINDINGS: Single view of the chest was obtained. Lungs are clear. Heart size is normal. There is no pulmonary vascular congestion. Mediastinum and bony thorax appear unremarkable. There are Leach type rods visible in the lower thoracic spine, extending inferiorly. IMPRESSION: 1. No acute finding.
--- NOTE | 2024-07-23 15:14 | PN ---
[facility] PROGRESS NOTE Date of Service: Jul 23, 2024 Time of Service: 15:14 SUBJECTIVE: [ ] 07/23/24 patient is seen and examined and case discussed with Rogers Neri. No overnight events labs have been reviewed. Continue current care REVIEW OF SYSTEMS CONSTITUTIONAL: Denies fevers, chills, or night sweats. No unintentional weight loss reported. NEUROLOGICAL: Patient is bedbound,paraplegic to both lower extremities and complained of left arm pain and swollen Denies headache, ENT: No hearing loss, otalgia, otorrhea, rhinitis, rhinorrhea, hoarseness, or sore throat. CARDIOVASCULAR: Denies any exertional angina, dyspnea on exertion, orthopnea, paroxysmal nocturnal dyspnea, palpitations, life-threatening arrhythmias, claudication. PULMONARY: Denies any shortness of breath, cough, phlegm/sputum, hemoptysis, pleuritic chest pain. SLEEP: Denies morning headaches, daytime somnolence or napping. Denies difficulty falling asleep, staying asleep, waking from sleep. Denies knowledge of snoring. GASTROINTESTINAL: Denies any type of dysphagia to either liquids or solids. Denies nausea, vomiting, pyrosis, early satiety, abdominal pain, diarrhea, constipation, or changes in stool consistency or caliber. Denies coffee-ground emesis, hematemesis, hematochezia, or melanotic stools. GENITOURINARY: Denies frequency, urgency, nocturia, hematuria and dysuria ENDOCRINOLOGIC: Denies polyuria, polydipsia, polyphagia or heat/cold intolerances. HEMATOLOGIC: Denies thrombophilia/previous clots, or coagulopathy/bleeding disorders. ONCOLOGIC: Denies personal history of malignancy. DERMATOLOGIC:Non healing sacral ulcer S/P debridement with JAMARI in place. PSYCHIATRIC: Denies any suicidal or homicidal ideation. Denies hallucinations. PHYSICAL EXAM GENERAL APPEARANCE: The patient is awake, alert, and oriented, in no acute cardiopulmonary distress. NEUROLOGICAL: paraplegic to both lower extremities.left arm contracted and both lower extremities HEENT: Face is symmetric. Pupils are equal and reactive. Extraocular movements are intact. NECK: Supple. No JVD. No thyromegaly. No submental, submandibular, pre- /postauricular, occipital or supraclavicular lymphadenopathy. CHEST: Normal chest expansion. No Telemetry. LUNGS: Absence of any rales, rhonchi or any wheezing. CARDIOVASCULAR: Regular. S1 and S2 normal. No appreciable rubs, murmurs or gallops. ABDOMEN: Soft, nontender, and nondistended. There is no rebound, voluntary guarding, or rigidity. : Deferred. Lowery. EXTREMITIES: Good capillary refill.Both hands swollen and left armn swollen as well SKIN: Surgical incision to sacral area S/P debridement and skin flap with JAMARI drain placement .Redness to both hands Vital Signs (last 8hr) Date Time Temp Pulse Resp B/P (MAP) Pulse Ox O2 Delivery O2 Flow Rate FiO2 07/23/24 11:55 98.2 55 16 130/56 98 Room Air 21 07/23/24 08:00 98.6 60 18 124/62 97 Room Air 21 LABS: Laboratory: Test 07/23/24 11:24 07/23/24 05:16 Range/Units Whole Blood Glucose 160 H 70-110 MG/DL Bedside Glucose Comment Notified Nurse White Blood Count 6.6 4.8-10.8 K/uL Red Blood Count 3.33 L 4.50-6.20 MIL/uL Hemoglobin 8.7 L 14.0-18.0 g/dL Hematocrit 27.2 L 42-54 % Mean Corpuscular Volume 81.7 79-99 fL Mean Corpuscular Hemoglobin 26.1 L 27.0-33.0 pg Mean Corpuscular Hemoglobin Concent 32.0 32.0-36.0 g/dL Red Cell Distribution Width 14.3 11.0-15.5 % Platelet Count 247 130-400 K/uL Mean Platelet Volume 10.8 H 7.5-10.5 fL Immature Granulocyte % (Auto) 0.5 0-1 % Neutrophils (%) (Auto) 72.4 40.0-77.0 % Lymphocytes (%) (Auto) 15.5 L 21.0-51.0 % Monocytes (%) (Auto) 8.1 3.0-13.0 % Eosinophils (%) (Auto) 2.9 0.0-8.0 % Basophils (%) (Auto) 0.6 0.0-5.0 % Neutrophils # (Auto) 4.8 1.8-7.7 K/uL Lymphocytes # (Auto) 1.0 1.0-4.8 K/uL Monocytes # (Auto) 0.5 0.1-1.0 K/uL Eosinophils # (Auto) 0.19 0.00-0.70 K/uL Basophils # (Auto) 0.04 0.00-0.20 K/uL Absolute Immature Granulocyte (auto 0.03 0-1 K/uL Nucleated Red Blood Cells 0.0 0.0-0.19 % Erythrocyte Sedimentation Rate 122 H 0-20 MM/HR Sodium Level 133 L 136-145 mmol/L Potassium Level 3.9 3.5-5.1 mmol/L Chloride Level 99 L 101-111 mmol/L Carbon Dioxide Level 28 21-32 mmol/L Blood Urea Nitrogen 49 H 7-18 mg/dL Creatinine 1.1 0.5-1.3 mg/dL Glomerular Filtration Rate Calc 68 >90 mL/min Random Glucose 120 H 70-105 mg/dL Hemoglobin A1c 6.3 H 4.0-6.0 % Estimated Average Glucose (eAG) 134 H 70-126 mg/dL Lactic Acid Level 1.0 0.8-2.5 mmol/L Total Calcium 8.6 8.5-10.1 mg/dL Magnesium Level 2.20 1.80-2.40 mg/dL Iron Level 13 L 65-175 mcg/dL Total Iron Binding Capacity 116 L 250-450 mcg/dL Percent Iron Saturation 11.2 L 30-44 % Total Bilirubin 0.3 0.2-1.0 mg/dL Aspartate Amino Transf (AST/SGOT) 19 10-37 U/L Alanine Aminotransferase (ALT/SGPT) 16 12-78 U/L Alkaline Phosphatase 82 50-136 U/L Total Creatine Kinase 30 21-232 U/L C-Reactive Protein, Quantitative 185.00 H 0.5-3.0 mg/L Total Protein 6.1 6.0-8.3 g/dL Albumin 1.6 L 3.5-5.0 g/dL Triglycerides Level 85 30-200 mg/dL Cholesterol Level 87 <200 mg/dL LDL Cholesterol 45 0-99 mg/dL HDL Cholesterol 29 29-71 mg/dL Procalcitonin 0.18 0.05-0.5 ng/mL Current Medications Medications (Trade) Dose Ordered Sig/Luz Maria Route PRN Reason Start Time Stop Time Status Last Admin Dose Admin Acetaminophen (TYLenol 325MG TAB) 650 mg Q6H PRN PO MILD PAIN (1-3) 07/15/24 19:30 08/14/24 19:29 07/21/24 18:57 650 MG Amlodipine Besylate (NorvASC 5MG TAB) 5 mg DAILY PO 07/16/24 09:00 08/15/24 08:59 07/23/24 09:55 5 MG Bisacodyl (DulcoLAX) 10 mg DAILY PRN RC CONSTIPATION 07/17/24 11:00 08/16/24 10:59 07/22/24 15:53 10 MG Dextrose (D50w) 50 ml AD PRN IV HYPOGLYCEMIA PROTOCOL 07/22/24 21:00 08/21/24 20:59 Docusate Sodium (COLace 100MG CAP) 100 mg BID PO 07/15/24 21:00 08/14/24 20:59 07/23/24 09:56 100 MG Glucagon (Glucagon 1mg Kit) 1 mg AD PRN IM HYPOGLYCEMIA PROTOCOL 07/22/24 21:00 08/21/24 20:59 Heparin Sodium (Porcine) (HEParin 5,000 UNIT VIAL) 5,000 unit Q12H SQ 07/22/24 23:00 08/21/24 22:59 07/23/24 10:10 5,000 UNIT Home Med (Home Medication) (linzess 290 MCG) DAILYPRN PRN PO CONSTIPATION 07/17/24 12:30 08/16/24 12:29 07/18/24 11:39 1 EACH Hydrochlorothiazide (hydroCHLOROthiazide 25MG) 25 mg DAILY PO 07/16/24 09:00 08/15/24 08:59 07/23/24 09:55 25 MG Insulin Human Regular (humuLIN R 100 UNIT/ML 3ML) INSULIN SLIDING SCAL... ACHS SQ 07/22/24 21:00 08/21/24 20:59 Lactulose (Constulose 20gm/ 30ml Udcup) 20 gm BID PRN PO CONSTIPATION 07/17/24 11:00 08/16/24 10:59 07/22/24 13:03 20 GM Losartan Potassium (CozAAR 100MG TAB) 100 mg DAILY PO 07/16/24 09:00 08/15/24 08:59 07/23/24 09:55 100 MG Magnesium Sulfate 50 ml @ 0 mls/hr PROTOCOL PRN IV OTHER [SEE ORDER COMMENTS] 07/22/24 21:00 08/21/24 20:59 Metformin HCl (glucoPHAGE) 500 mg DAILYDINNER PO 07/16/24 17:00 08/15/24 16:59 Hold 07/22/24 18:42 500 MG Miscellaneous Medication (Losartan/ Hydrochlorothiazide (Losartan-Hctz 100-25 mg Tab)) 1 tab DAILY PO 07/16/24 09:00 08/15/24 08:59 UNV Piperacillin Sod/ Tazobactam Sod (Zosyn 3.375gm+NS 50ml) 3.375 gm Q8H IV 07/21/24 17:00 07/23/24 16:59 07/23/24 09:55 3.375 GM Potassium Chloride 100 ml @ 100 mls/hr AD PRN IV POTASSIUM PROTOCOL 07/22/24 21:00 08/21/24 20:59 Potassium Chloride (K-Dur/Klor-Con 20meq) 20 meq AD PRN PO POTASSIUM PROTOCOL 07/22/24 21:00 08/21/24 20:59 Potassium Chloride (KCl 10% Elixir 20meq/15ml) 20 meq AD PRN PO POTASSIUM PROTOCOL 07/22/24 21:00 08/21/24 20:59 Sennosides (Senna) 3 tab DAILY PRN PO CONSTIPATION 07/17/24 11:00 08/16/24 10:59 07/22/24 09:13 3 TAB DIAGNOSTICS / RADIOLOGY: [ ] ASSESSMENT: Non healing sacral ulcer S/P debridement and skin advancement flaps for closure with JAMARI drain placement on 07/15/2024 performed by Acute anemia POA Hyponatremia POA Uncontrolled Diabetes POA Neurogenic bladder POA Left arm pain POA Incomplete paraphlegia POA PLAN: Will continue to admit patient in medical surgical floor Will continue IV Antibiotic Will start on consistent carb diet Will check blood sugar AC and HS and start on insulin sliding scale with hypoglycemia protocol Will replace electytrolytes as needed per protocol Will check labs in am Continue admission orders per primary Further recommendations to follow depending upon hospitalization course Case discussed with the attending MD and came up with the above treatment and plan of care RESHMA OROZCO MD Jul 23, 2024 15:14
--- NOTE | 2024-07-23 16:30 | NUR ---
blood glucose 198. covered with 2 units of Humulin R subcutaneous ; following insulin scale from patients e-mar.
[2024-07-23] MEDS ORDERED: GABA300C PO ×2 (20:03)
[2024-07-24] VITALS (7 sets, daily range): BP systolic 128–155; BP diastolic 61–69; PULSE 61–75; RESP 15–18; TEMP 96.3–98.6; O2SAT 97–99
--- NOTE | 2024-07-24 01:13 | NUR ---
nursing pm note patient alert and oriented times 3. plan of care discussed with him and he verbalized understanding. I changed his wound dressing with ns, pat dry, vashe, gauze, medipore tape. mulu James, and I move the patient on his sides every 2-3 hours to prevent skin breakdown. Rodriguez drain to bulb suction has brown fluid draining. Patient's incision looks red and irritated around the sutures. Patient has no pain. He is paraplegic and feels nothing from the abdomen down to his feet. door open, bed alarm on, 2 side rails up. will continue to monitor patient.
--- NOTE | 2024-07-24 08:44 | PN ---
Postop day nine after excision of decubitus ulcer and primary closure. Patient is doing well. Wound seems to be stable. There is no significant foul-smelling and the wound looked good. I appreciate hospitalist input helping us to take care of the medical issues of this patient. The patient is awaiting for disposition to a intermediate. No other recommendation at this point Vitals/Labs Vital Signs Date Time Temp Pulse Resp B/P (MAP) Pulse Ox O2 Delivery O2 Flow Rate FiO2 07/24/24 08:30 99 Room Air* 0 21 07/24/24 04:00 98.6 68 18 128/62 WARD YOUNGER MD Jul 24, 2024 08:44
--- NOTE | 2024-07-24 16:00 | NUR ---
rectal dressing removed cleansed with Vash applied 4x4 and secured with tape pt tolerated well
--- NOTE | 2024-07-24 16:57 | PN ---
[facility] PROGRESS NOTE Date of Service: Jul 24, 2024 Time of Service: 16:57 SUBJECTIVE: [ ] 07/23/24 patient is seen and examined and case discussed with RN No overnight events labs have been reviewed. Continue current care 07/24/24 Postop day nine after excision of decubitus ulcer and primary closure. Patient was seen and examined and case discussed with the RN. He continues to do well and denies any excessive pain. No nausea vomiting fever or chills REVIEW OF SYSTEMS CONSTITUTIONAL: Denies fevers, chills, or night sweats. No unintentional weight loss reported. NEUROLOGICAL: Patient is bedbound,paraplegic to both lower extremities and complained of left arm pain and swollen Denies headache, ENT: No hearing loss, otalgia, otorrhea, rhinitis, rhinorrhea, hoarseness, or sore throat. CARDIOVASCULAR: Denies any exertional angina, dyspnea on exertion, orthopnea, paroxysmal nocturnal dyspnea, palpitations, life-threatening arrhythmias, claudication. PULMONARY: Denies any shortness of breath, cough, phlegm/sputum, hemoptysis, pleuritic chest pain. SLEEP: Denies morning headaches, daytime somnolence or napping. Denies difficulty falling asleep, staying asleep, waking from sleep. Denies knowledge of snoring. GASTROINTESTINAL: Denies any type of dysphagia to either liquids or solids. Denies nausea, vomiting, pyrosis, early satiety, abdominal pain, diarrhea, constipation, or changes in stool consistency or caliber. Denies coffee-ground emesis, hematemesis, hematochezia, or melanotic stools. GENITOURINARY: Denies frequency, urgency, nocturia, hematuria and dysuria ENDOCRINOLOGIC: Denies polyuria, polydipsia, polyphagia or heat/cold intolerances. HEMATOLOGIC: Denies thrombophilia/previous clots, or coagulopathy/bleeding di sorders. ONCOLOGIC: Denies personal history of malignancy. DERMATOLOGIC:Non healing sacral ulcer S/P debridement with JAMARI in place. PSYCHIATRIC: Denies any suicidal or homicidal ideation. Denies hallucinations. PHYSICAL EXAM GENERAL APPEARANCE: The patient is awake, alert, and oriented, in no acute cardiopulmonary distress. NEUROLOGICAL: paraplegic to both lower extremities.left arm contracted and both lower extremities HEENT: Face is symmetric. Pupils are equal and reactive. Extraocular movements are intact. NECK: Supple. No JVD. No thyromegaly. No submental, submandibular, pre- /postauricular, occipital or supraclavicular lymphadenopathy. CHEST: Normal chest expansion. No Telemetry. LUNGS: Absence of any rales, rhonchi or any wheezing. CARDIOVASCULAR: Regular. S1 and S2 normal. No appreciable rubs, murmurs or gallops. ABDOMEN: Soft, nontender, and nondistended. There is no rebound, voluntary guarding, or rigidity. : Deferred. Lowery. EXTREMITIES: Good capillary refill.Both hands swollen and left armn swollen as well SKIN: Surgical incision to sacral area S/P debridement and skin flap with JAMARI drain placement .Redness to both hands Vital Signs (last 8hr) Date Time Temp Pulse Resp B/P (MAP) Pulse Ox O2 Delivery O2 Flow Rate FiO2 07/24/24 12:00 97.7 69 15 135/61 99 Room Air 0.0 LABS: Laboratory: Test 07/24/24 16:38 07/23/24 16:13 07/23/24 05:16 Range/Units Whole Blood Glucose 194 H 70-110 MG/DL Bedside Glucose Comment Notified Nurse White Blood Count 6.6 4.8-10.8 K/uL Red Blood Count 3.33 L 4.50-6.20 MIL/uL Hemoglobin 8.7 L 14.0-18.0 g/dL Hematocrit 27.2 L 42-54 % Mean Corpuscular Volume 81.7 79-99 fL Mean Corpuscular Hemoglobin 26.1 L 27.0-33.0 pg Mean Corpuscular Hemoglobin Concent 32.0 32.0-36.0 g/dL Red Cell Distribution Width 14.3 11.0-15.5 % Platelet Count 247 130-400 K/uL Mean Platelet Volume 10.8 H 7.5-10.5 fL Immature Granulocyte % (Auto) 0.5 0-1 % Neutrophils (%) (Auto) 72.4 40.0-77.0 % Lymphocytes (%) (Auto) 15.5 L 21.0-51.0 % Monocytes (%) (Auto) 8.1 3.0-13.0 % Eosinophils (%) (Auto) 2.9 0.0-8.0 % Basophils (%) (Auto) 0.6 0.0-5.0 % Neutrophils # (Auto) 4.8 1.8-7.7 K/uL Lymphocytes # (Auto) 1.0 1.0-4.8 K/uL Monocytes # (Auto) 0.5 0.1-1.0 K/uL Eosinophils # (Auto) 0.19 0.00-0.70 K/uL Basophils # (Auto) 0.04 0.00-0.20 K/uL Absolute Immature Granulocyte (auto 0.03 0-1 K/uL Nucleated Red Blood Cells 0.0 0.0-0.19 % Erythrocyte Sedimentation Rate 122 H 0-20 MM/HR Sodium Level 133 L 136-145 mmol/L Potassium Level 3.9 3.5-5.1 mmol/L Chloride Level 99 L 101-111 mmol/L Carbon Dioxide Level 28 21-32 mmol/L Blood Urea Nitrogen 49 H 7-18 mg/dL Creatinine 1.1 0.5-1.3 mg/dL Glomerular Filtration Rate Calc 68 >90 mL/min Random Glucose 120 H 70-105 mg/dL Hemoglobin A1c 6.3 H 4.0-6.0 % Estimated Average Glucose (eAG) 134 H 70-126 mg/dL Lactic Acid Level 1.0 0.8-2.5 mmol/L Total Calcium 8.6 8.5-10.1 mg/dL Magnesium Level 2.20 1.80-2.40 mg/dL Iron Level 13 L 65-175 mcg/dL Total Iron Binding Capacity 116 L 250-450 mcg/dL Percent Iron Saturation 11.2 L 30-44 % Total Bilirubin 0.3 0.2-1.0 mg/dL Aspartate Amino Transf (AST/SGOT) 19 10-37 U/L Alanine Aminotransferase (ALT/SGPT) 16 12-78 U/L Alkaline Phosphatase 82 50-136 U/L Total Creatine Kinase 30 21-232 U/L C-Reactive Protein, Quantitative 185.00 H 0.5-3.0 mg/L Total Protein 6.1 6.0-8.3 g/dL Albumin 1.6 L 3.5-5.0 g/dL Triglycerides Level 85 30-200 mg/dL Cholesterol Level 87 <200 mg/dL LDL Cholesterol 45 0-99 mg/dL HDL Cholesterol 29 29-71 mg/dL Procalcitonin 0.18 0.05-0.5 ng/mL Current Medications Medications (Trade) Dose Ordered Sig/Luz Maria Route PRN Reason Start Time Stop Time Status Last Admin Dose Admin Acetaminophen (TYLenol 325MG TAB) 650 mg Q6H PRN PO MILD PAIN (1-3) 07/15/24 19:30 08/14/24 19:29 07/21/24 18:57 650 MG Amlodipine Besylate (NorvASC 5MG TAB) 5 mg DAILY PO 07/16/24 09:00 08/15/24 08:59 07/24/24 10:13 5 MG Bisacodyl (DulcoLAX) 10 mg DAILY PRN RC CONSTIPATION 07/17/24 11:00 08/16/24 10:59 07/22/24 15:53 10 MG Dextrose (D50w) 50 ml AD PRN IV HYPOGLYCEMIA PROTOCOL 07/22/24 21:00 08/21/24 20:59 Docusate Sodium (COLace 100MG CAP) 100 mg BID PO 07/15/24 21:00 08/14/24 20:59 07/24/24 10:13 100 MG Glucagon (Glucagon 1mg Kit) 1 mg AD PRN IM HYPOGLYCEMIA PROTOCOL 07/22/24 21:00 08/21/24 20:59 Heparin Sodium (Porcine) (HEParin 5,000 UNIT VIAL) 5,000 unit Q12H SQ 07/22/24 23:00 08/21/24 22:59 07/24/24 10:15 5,000 UNIT Home Med (Home Medication) (linzess 290 MCG) DAILYPRN PRN PO CONSTIPATION 07/17/24 12:30 08/16/24 12:29 07/18/24 11:39 1 EACH Hydrochlorothiazide (hydroCHLOROthiazide 25MG) 25 mg DAILY PO 07/16/24 09:00 08/15/24 08:59 07/24/24 10:13 25 MG Insulin Human Regular (humuLIN R 100 UNIT/ML 3ML) INSULIN SLIDING SCAL... ACHS SQ 07/22/24 21:00 08/21/24 20:59 07/24/24 16:51 2 UNIT Lactulose (Constulose 20gm/ 30ml Udcup) 20 gm BID PRN PO CONSTIPATION 07/17/24 11:00 08/16/24 10:59 07/22/24 13:03 20 GM Losartan Potassium (CozAAR 100MG TAB) 100 mg DAILY PO 07/16/24 09:00 08/15/24 08:59 07/24/24 10:13 100 MG Magnesium Sulfate 50 ml @ 0 mls/hr PROTOCOL PRN IV OTHER [SEE ORDER COMMENTS] 07/22/24 21:00 08/21/24 20:59 Metformin HCl (glucoPHAGE) 500 mg DAILYDINNER PO 07/16/24 17:00 08/15/24 16:59 Hold 07/22/24 18:42 500 MG Miscellaneous Medication (Losartan/ Hydrochlorothiazide (Losartan-Hctz 100-25 mg Tab)) 1 tab DAILY PO 07/16/24 09:00 08/15/24 08:59 UNV Piperacillin Sod/ Tazobactam Sod (Zosyn 3.375gm+NS 50ml) 3.375 gm Q8H IV 07/21/24 17:00 07/23/24 16:59 DC 07/23/24 09:55 3.375 GM Potassium Chloride 100 ml @ 100 mls/hr AD PRN IV POTASSIUM PROTOCOL 07/22/24 21:00 08/21/24 20:59 Potassium Chloride (K-Dur/Klor-Con 20meq) 20 meq AD PRN PO POTASSIUM PROTOCOL 07/22/24 21:00 08/21/24 20:59 Potassium Chloride (KCl 10% Elixir 20meq/15ml) 20 meq AD PRN PO POTASSIUM PROTOCOL 07/22/24 21:00 08/21/24 20:59 Sennosides (Senna) 3 tab DAILY PRN PO CONSTIPATION 07/17/24 11:00 08/16/24 10:59 07/22/24 09:13 3 TAB DIAGNOSTICS / RADIOLOGY: [ ] ASSESSMENT: Non healing sacral ulcer S/P debridement and skin advancement flaps for closure with JAMARI drain placement on 07/15/2024 performed by Acute anemia POA Hyponatremia POA Uncontrolled Diabetes POA Neurogenic bladder POA Left arm pain POA Incomplete paraphlegia POA PLAN: Will continue to admit patient in medical surgical floor Will continue IV Antibiotic Will start on consistent carb diet Will check blood sugar AC and HS and start on insulin sliding scale with hypoglycemia protocol Will replace electytrolytes as needed per protocol Will check labs in am Continue admission orders per primary Further recommendations to follow depending upon hospitalization course Case discussed with the attending MD and came up with the above treatment and plan of care RESHMA OROZCO MD Jul 24, 2024 16:57
--- NOTE | 2024-07-24 23:07 | NUR ---
nursing pm note patient alert and oriented times 4. plan of care discussed with him and he verbalized understanding. patient has no pain tonight. mulu moore, and hceng turn the patient on the side every 2 hours to prevent skin breakdown. The patient calls for assistance to drink water. Rodriguez drain to bulb suction. Lowery catheter with clear yellow urine. The patient has slept about 6 hours tonight. call light within reach, bed alarm on, 2 side rails up. will continue to monitor patient.
[2024-07-25] VITALS (9 sets, daily range): BP systolic 118–143; BP diastolic 54–67; PULSE 64–81; RESP 16–20; TEMP 98.1–99.1; O2SAT 97–99
--- NOTE | 2024-07-25 03:33 | NUR ---
dressing dressing on his sacrum is soiled. wound care done to incision with ns, pat dry, vashe, gauze, medipore tape. The incision looks irritated red around the incision site.
[2024-07-25] MEDS: levoFLOXacin 500 MG TABLET PO ONE (12:30)
[2024-07-25] MEDS: FERROUS SULFATE 325 MG TABLET.DR PO SCH (13:22)
--- NOTE | 2024-07-25 19:26 | NUR ---
dr mejia notified of sacral wound with odor and draining small amount of drainage onto gauze , cleansed with vashe and dry dressing applied.
--- NOTE | 2024-07-25 20:39 | PN ---
[facility] PROGRESS NOTE Date of Service: Jul 25, 2024 Time of Service: 20:37 SUBJECTIVE: [ ] 07/23/24 patient is seen and examined and case discussed with RN No overnight events labs have been reviewed. Continue current care 07/24/24 Postop day nine after excision of decubitus ulcer and primary closure. Patient was seen and examined and case discussed with the RN. He continues to do well and denies any excessive pain. No nausea vomiting fever or chills 07/25/14 Postop day nine after excision of decubitus ulcer and primary closure. Patient was seen and examined and case discussed with the RN. Medically stable and can be discharged when placement secured per surgery REVIEW OF SYSTEMS CONSTITUTIONAL: Denies fevers, chills, or night sweats. No unintentional weight loss reported. NEUROLOGICAL: Patient is bedbound,paraplegic to both lower extremities and complained of left arm pain and swollen Denies headache, ENT: No hearing loss, otalgia, otorrhea, rhinitis, rhinorrhea, hoarseness, or sore throat. CARDIOVASCULAR: Denies any exertional angina, dyspnea on exertion, orthopnea, paroxysmal nocturnal dyspnea, palpitations, life-threatening arrhythmias, claudication. PULMONARY: Denies any shortness of breath, cough, phlegm/sputum, hemoptysis, pleuritic chest pain. SLEEP: Denies morning headaches, daytime somnolence or napping. Denies difficulty falling asleep, staying asleep, waking from sleep. Denies knowledge of snoring. GASTROINTESTINAL: Denies any type of dysphagia to either liquids or solids. Denies nausea, vomiting, pyrosis, early satiety, abdominal pain, diarrhea, constipation, or changes in stool consistency or caliber. Denies coffee-ground emesis, hematemesis, hematochezia, or melanotic stools. GENITOURINARY: Denies frequency, urgency, nocturia, hematuria and dysuria ENDOCRINOLOGIC: Denies polyuria, polydipsia, polyphagia or heat/cold intole rances. HEMATOLOGIC: Denies thrombophilia/previous clots, or coagulopathy/bleeding disorders. ONCOLOGIC: Denies personal history of malignancy. DERMATOLOGIC:Non healing sacral ulcer S/P debridement with JAMARI in place. PSYCHIATRIC: Denies any suicidal or homicidal ideation. Denies hallucinations. PHYSICAL EXAM GENERAL APPEARANCE: The patient is awake, alert, and oriented, in no acute cardiopulmonary distress. NEUROLOGICAL: paraplegic to both lower extremities.left arm contracted and both lower extremities HEENT: Face is symmetric. Pupils are equal and reactive. Extraocular movements are intact. NECK: Supple. No JVD. No thyromegaly. No submental, submandibular, pre- /postauricular, occipital or supraclavicular lymphadenopathy. CHEST: Normal chest expansion. No Telemetry. LUNGS: Absence of any rales, rhonchi or any wheezing. CARDIOVASCULAR: Regular. S1 and S2 normal. No appreciable rubs, murmurs or gallops. ABDOMEN: Soft, nontender, and nondistended. There is no rebound, voluntary guarding, or rigidity. : Deferred. Lowery. EXTREMITIES: Good capillary refill.Both hands swollen and left armn swollen as well SKIN: Surgical incision to sacral area S/P debridement and skin flap with JAMARI drain placement .Redness to both hands Vital Signs (last 8hr) Date Time Temp Pulse Resp B/P (MAP) Pulse Ox O2 Delivery O2 Flow Rate FiO2 07/25/24 20:11 98.4 69 18 136/59 99 Room Air 21 07/25/24 16:10 98.6 81 16 143/64 99 Room Air LABS: Laboratory: Test 07/25/24 19:29 07/25/24 15:52 Range/Units Whole Blood Glucose 163 H 70-110 MG/DL Bedside Glucose Comment Notified Nurse Current Medications Medications (Trade) Dose Ordered Sig/Luz Maria Route PRN Reason Start Time Stop Time Status Last Admin Dose Admin Acetaminophen (TYLenol 325MG TAB) 650 mg Q6H PRN PO MILD PAIN (1-3) 07/15/24 19:30 08/14/24 19:29 07/24/24 19:52 650 MG Amlodipine Besylate (NorvASC 5MG TAB) 5 mg DAILY PO 07/16/24 09:00 08/15/24 08:59 07/25/24 10:53 5 MG Bisacodyl (DulcoLAX) 10 mg DAILY PRN RC CONSTIPATION 07/17/24 11:00 08/16/24 10:59 07/22/24 15:53 10 MG Dextrose (D50w) 50 ml AD PRN IV HYPOGLYCEMIA PROTOCOL 07/22/24 21:00 08/21/24 20:59 Docusate Sodium (COLace 100MG CAP) 100 mg BID PO 07/15/24 21:00 08/14/24 20:59 07/25/24 10:53 100 MG Ferrous Sulfate (Ferrous Sulfate) 325 mg DAILY PO 07/25/24 12:30 08/24/24 12:29 07/25/24 13:22 325 MG Glucagon (Glucagon 1mg Kit) 1 mg AD PRN IM HYPOGLYCEMIA PROTOCOL 07/22/24 21:00 08/21/24 20:59 Heparin Sodium (Porcine) (HEParin 5,000 UNIT VIAL) 5,000 unit Q12H SQ 07/22/24 23:00 08/21/24 22:59 07/25/24 13:21 5,000 UNIT Home Med (Home Medication) (linzess 290 MCG) DAILYPRN PRN PO CONSTIPATION 07/17/24 12:30 08/16/24 12:29 07/18/24 11:39 1 EACH Hydrochlorothiazide (hydroCHLOROthiazide 25MG) 25 mg DAILY PO 07/16/24 09:00 08/15/24 08:59 07/25/24 10:53 25 MG Insulin Human Regular (humuLIN R 100 UNIT/ML 3ML) INSULIN SLIDING SCAL... ACHS SQ 07/22/24 21:00 08/21/24 20:59 07/25/24 17:56 4 UNIT Lactulose (Constulose 20gm/ 30ml Udcup) 20 gm BID PRN PO CONSTIPATION 07/17/24 11:00 08/16/24 10:59 07/22/24 13:03 20 GM Losartan Potassium (CozAAR 100MG TAB) 100 mg DAILY PO 07/16/24 09:00 08/15/24 08:59 07/25/24 10:53 100 MG Magnesium Sulfate 50 ml @ 0 mls/hr PROTOCOL PRN IV OTHER [SEE ORDER COMMENTS] 07/22/24 21:00 08/21/24 20:59 Metformin HCl (glucoPHAGE) 500 mg DAILYDINNER PO 07/16/24 17:00 07/25/24 10:07 DC 07/22/24 18:42 500 MG Miscellaneous Medication (Losartan/ Hydrochlorothiazide (Losartan-Hctz 100-25 mg Tab)) 1 tab DAILY PO 07/16/24 09:00 08/15/24 08:59 UNV Piperacillin Sod/ Tazobactam Sod (Zosyn 3.375gm+NS 50ml) 3.375 gm Q8H IV 07/21/24 17:00 07/23/24 16:59 DC 07/23/24 09:55 3.375 GM Potassium Chloride 100 ml @ 100 mls/hr AD PRN IV POTASSIUM PROTOCOL 07/22/24 21:00 08/21/24 20:59 Potassium Chloride (K-Dur/Klor-Con 20meq) 20 meq AD PRN PO POTASSIUM PROTOCOL 07/22/24 21:00 08/21/24 20:59 Potassium Chloride (KCl 10% Elixir 20meq/15ml) 20 meq AD PRN PO POTASSIUM PROTOCOL 07/22/24 21:00 08/21/24 20:59 Sennosides (Senna) 3 tab DAILY PRN PO CONSTIPATION 07/17/24 11:00 08/16/24 10:59 07/22/24 09:13 3 TAB DIAGNOSTICS / RADIOLOGY: [ ] ASSESSMENT: Non healing sacral ulcer S/P debridement and skin advancement flaps for closure with JAMARI drain placement on 07/15/2024 performed by Acute anemia POA Hyponatremia POA Uncontrolled Diabetes POA Neurogenic bladder POA Left arm pain POA Incomplete paraphlegia POA PLAN: Will continue to admit patient in medical surgical floor Will continue IV Antibiotic Will start on consistent carb diet Will check blood sugar AC and HS and start on insulin sliding scale with hypoglycemia protocol Will replace electytrolytes as needed per protocol Will check labs in am Continue admission orders per primary Further recommendations to follow depending upon hospitalization course Case discussed with the attending MD and came up with the above treatment and plan of care RESHMA OROZCO MD Jul 25, 2024 20:39
[2024-07-26 04:04] VITALS: BP_SYST 119; BP_SYST 120; BP_DIAS 58; BP_DIAS 62; PULSE 72; PULSE 81; RESP 18; TEMP 98.6; TEMP 99.6
[2024-07-26 08:00] VITALS: BP 127/60; PULSE 70; RESP 16; TEMP 98.4; O2SAT 99
--- NOTE | 2024-07-26 10:45 | NUR ---
DR RESHMA AGUIAR INFORMED OF PATIENT CURRENT WOUND STATUS MD EVALUATED.
[2024-07-26 12:00] VITALS: BP 108/43; PULSE 72; RESP 16; TEMP 98.6
[2024-07-26] MEDS ORDERED: LINA145C PO (12:29)
[2024-07-26 12:33] LABS: BASOPHILS # (AUTO) 0.04 K/uL (0.00-0.20); BASOPHILS % (AUTO) 0.8 % (0.0-5.0); EOSINOPHILS # (AUTO) 0.11 K/uL (0.00-0.70); EOSINOPHILS % (AUTO) 2.2 % (0.0-8.0); HEMATOCRIT 29.8 % (42-54); IMMATURE GRANULOCYTE ABSOLUTE 0.02 K/uL (0-1); LYMPHOCYTES # (AUTO) 0.9 K/uL (1.0-4.8); LYMPHOCYTES % (AUTO) 18.1 % (21.0-51.0); MEAN CORPUSCULAR HEMOGLOBIN 26.3 pg (27.0-33.0); MEAN CORPUSCULAR HGB CONC 32.6 g/dL (32.0-36.0); MEAN CORPUSCULAR VOLUME 80.8 fL (79-99); MONOCYTES # (AUTO) 0.4 K/uL (0.1-1.0); MONOCYTES % (AUTO) 7.1 % (3.0-13.0); NEUTROPHILS # (AUTO) 3.6 K/uL (1.8-7.7); NEUTROPHILS % (AUTO) 71.4 % (40.0-77.0); PLATELET COUNT (AUTO) 333 K/uL (130-400); RED BLOOD CELL COUNT(AUTO) 3.69 MIL/uL (4.50-6.20); RED CELL DISTRIBUTION WIDTH 14.3 % (11.0-15.5); WHITE BLOOD COUNT (AUTO) 5.1 K/uL (4.8-10.8)
[2024-07-26 12:46] LABS: ALBUMIN 1.7 g/dL (3.5-5.0); BILIRUBIN,TOTAL 0.2 mg/dL (0.2-1.0); CREATININE 0.9 mg/dL (0.5-1.3); POTASSIUM 3.8 mmol/L (3.5-5.1); TOTAL PROTEIN, SERUM 6.3 g/dL (6.0-8.3)
[2024-07-26] MEDS ORDERED: (Linaclotide (Linzess) 145 MCG) PO SCH (13:00)
[2024-07-26] MEDS: levoFLOXacin 500 MG TABLET PO ONE (13:55)
[2024-07-26 16:00] VITALS: BP 122/51; PULSE 64; RESP 16; TEMP 98.1
--- NOTE | 2024-07-26 16:30 | NUR ---
REMI HALE TIRE SORTER HERE AND ASSESSED PATIENTS SURGICAL SITE .
--- NOTE | 2024-07-26 16:50 | PN ---
This is a 78-year-old male postop day 11 for excisional debridement of sacral ulcer Interval history: This 78-year-old male seen in his room Patient is still pending placement into a [place] [facility] JAMARI drain in place no longer h holding suction Wound examined and photos shared with Dr. Santos Patient otherwise stable Physical exam General: Awake alert and oriented Heart: Regular rate and rhythm} Lungs: Clear to auscultation no distress Abdomen: [Soft, nontender, nondistended Ulcer site with drain in place no longer holding suction Sutures in place Assessment : This is an 78-year-old male status post excisional debridement of sacral ulcer Plan: JAMARI drain to be removed Nursing team to place wound VAC over area Await for placement to [facility] Dr. Santos has been updated on patient's status and surgical team will continue to follow patient closely Vitals/Labs Vital Signs Date Time Temp Pulse Resp B/P (MAP) Pulse Ox O2 Delivery O2 Flow Rate FiO2 07/26/24 16:00 98.1 64 16 122/51 97 Room Air 07/26/24 04:04 21 07/25/24 21:00 0 Laboratory Tests 07/26/24 12:24 Medications Current Medications Cefazolin Sodium 2 gm STK-MED ONCE .ROUTE; Start 07/15/24 at 07:43; Stop 07/15/24 at 07:49; Status DC Sodium Chloride 1,000 ml @ As Directed STK-MED ONCE IV; Start 07/15/24 at 07:43; Stop 07/15/24 at 07:49; Status DC Cefazolin Sodium 2 gm STK-MED ONCE .ROUTE; Start 07/15/24 at 07:44; Stop 07/15/24 at 07:49; Status DC Sodium Chloride 1,000 ml @ As Directed STK-MED ONCE IV Last administered on 07/15/24at 09:08; Start 07/15/24 at 07:44; Stop 07/15/24 at 07:49; Status DC Lidocaine HCl 100 mg STK-MED ONCE .ROUTE; Start 07/15/24 at 10:15; Stop 07/15/24 at 10:15; Status DC Dexamethasone Sodium Phosphate 4 mg STK-MED ONCE .ROUTE; Start 07/15/24 at 10:15; Stop 07/15/24 at 10:15; Status DC Ondansetron HCl 4 mg STK-MED ONCE .ROUTE; Start 07/15/24 at 10:15; Stop 07/15/24 at 10:15; Status DC Propofol 200 mg STK-MED ONCE IV; Start 07/15/24 at 10:15; Stop 07/15/24 at 10:16; Status DC Rocuronium [place] 50 mg STK-MED ONCE .ROUTE; Start 07/15/24 at 10:16; Stop 07/15/24 at 10:16; Status DC Fentanyl Citrate 100 mcg STK-MED ONCE .ROUTE; Start 07/15/24 at 10:16; Stop 07/15/24 at 10:16; Status DC Cefazolin Sodium 2 gm STK-MED ONCE IVPB Last administered on 07/15/24at 10:31; Start 07/15/24 at 10:31; Stop 07/15/24 at 11:12; Status DC Glycopyrrolate 1 mg STK-MED ONCE .ROUTE; Start 07/15/24 at 11:32; Stop 07/15/24 at 11:32; Status DC Neostigmine Methylsulfate 10 mg STK-MED ONCE IV; Start 07/15/24 at 11:32; Stop 07/15/24 at 11:32; Status DC Acetaminophen 650 mg Q6H PRN PO Last administered on 07/24/24at 19:52; Start 07/15/24 at 19:30; Stop 08/14/24 at 19:29 Docusate Sodium 100 mg BID PO Last administered on 07/26/24at 08:31; Start 07/15/24 at 21:00; Stop 08/14/24 at 20:59 Metformin HCl 500 mg DAILYDINNER PO Last administered on 07/22/24at 18:42; Start 07/16/24 at 17:00; Stop 07/25/24 at 10:07; Status DC Miscellaneous Medication 1 tab DAILY PO; Start 07/16/24 at 09:00; Stop 08/15/24 at 08:59; Status UNV Amlodipine Besylate 5 mg DAILY PO Last administered on 07/26/24at 08:31; Start 07/16/24 at 09:00; Stop 08/15/24 at 08:59 Losartan Potassium 100 mg DAILY PO Last administered on 07/26/24at 08:31; Start 07/16/24 at 09:00; Stop 08/15/24 at 08:59 Hydrochlorothiazide 25 mg DAILY PO Last administered on 07/26/24at 08:30; Start 07/16/24 at 09:00; Stop 08/15/24 at 08:59 Sennosides 3 tab DAILY PRN PO Last administered on 07/26/24at 08:27; Start 07/17/24 at 11:00; Stop 08/16/24 at 10:59 Lactulose 20 gm BID PRN PO Last administered on 07/26/24at 13:55; Start 07/17/24 at 11:00; Stop 08/16/24 at 10:59 Bisacodyl 10 mg DAILY PRN RC Last administered on 07/22/24at 15:53; Start 07/17/24 at 11:00; Stop 08/16/24 at 10:59 Home Med (linzess 290 MCG) DAILYPRN PRN PO Last administered on 07/18/24at 11:39; Start 07/17/24 at 12:30; Stop 08/16/24 at 12:29 Piperacillin Sod/ Tazobactam Sod 3.375 gm Q8H IV Last administered on 07/23/24at 09:55; Start 07/21/24 at 17:00; Stop 07/23/24 at 16:59; Status DC Tramadol HCl 50 mg ONCE ONCE PO Last administered on 07/22/24at 21:07; Start 07/22/24 at 20:00; Stop 07/22/24 at 20:01; Status DC Insulin Human Regular INSULIN SLIDING SCAL... ACHS SQ Last administered on 07/26/24at 13:59; Start 07/22/24 at 21:00; Stop 08/21/24 at 20:59 Dextrose 50 ml AD PRN IV; Start 07/22/24 at 21:00; Stop 08/21/24 at 20:59 Glucagon 1 mg AD PRN IM; Start 07/22/24 at 21:00; Stop 08/21/24 at 20:59 Potassium Chloride 100 ml @ 100 mls/hr AD PRN IV; Start 07/22/24 at 21:00; Stop 08/21/24 at 20:59 Potassium Chloride 20 meq AD PRN PO; Start 07/22/24 at 21:00; Stop 08/21/24 at 20:59 Potassium Chloride 20 meq AD PRN PO; Start 07/22/24 at 21:00; Stop 08/21/24 at 20:59 Magnesium Sulfate 50 ml @ 0 mls/hr PROTOCOL PRN IV; Start 07/22/24 at 21:00; Stop 08/21/24 at 20:59 Acetaminophen/ Hydrocodone Bitart 2 tab ONCE ONCE PO Last administered on 07/22/24at 22:42; Start 07/22/24 at 23:00; Stop 07/22/24 at 23:01; Status DC Heparin Sodium (Porcine) 5,000 unit Q12H SQ Last administered on 07/26/24at 14:00; Start 07/22/24 at 23:00; Stop 08/21/24 at 22:59 Ferrous Sulfate 325 mg DAILY PO Last administered on 07/26/24at 08:30; Start 07/25/24 at 12:30; Stop 08/24/24 at 12:29 Levofloxacin 500 mg ONCE ONCE PO; Start 07/25/24 at 12:30; Stop 07/26/24 at 12:08; Status DC Levofloxacin 250 mg DAILY PO; Start 07/27/24 at 09:00; Stop 07/26/24 at 14:00; Status DC Levofloxacin 500 mg ONCE ONCE PO Last administered on 07/26/24at 13:55; Start 07/26/24 at 12:30; Stop 07/26/24 at 12:31; Status DC Gabapentin 300 mg DAILY PO; Start 07/27/24 at 09:00; Stop 08/26/24 at 08:59 Gabapentin 600 mg HS PO; Start 07/26/24 at 21:00; Stop 08/25/24 at 20:59 Home Med (Linaclotide (Linzess) 145 MCG) Q3D PO; Start 07/26/24 at 13:00; Stop 08/25/24 at 12:59 Levofloxacin 500 mg DAILY PO; Start 07/27/24 at 09:00; Stop 08/06/24 at 08:59 REMI HALE Jr. Jul 26, 2024 16:50
--- NOTE | 2024-07-26 17:55 | PN ---
[facility] PROGRESS NOTE Date of Service: Jul 26, 2024 Time of Service: 17:54 SUBJECTIVE: [ ] 07/23/24 patient is seen and examined and case discussed with RN No overnight events labs have been reviewed. Continue current care 07/24/24 Postop day nine after excision of decubitus ulcer and primary closure. Patient was seen and examined and case discussed with the RN. He continues to do well and denies any excessive pain. No nausea vomiting fever or chills 07/25/14 Postop day nine after excision of decubitus ulcer and primary closure. Patient was seen and examined and case discussed with the RN. Medically stable and can be discharged when placement secured per surgery 07/26/24 Postop day nine after excision of decubitus ulcer and primary closure. Patient was seen and examined and case discussed with the RN. Medically stable and can be discharged when placement secured per surgery/examined wound on the back with good color and minimal drainage/JPD in place/surgery to reeval/Follow cultures and ID consulted due to pseudomonas REVIEW OF SYSTEMS CONSTITUTIONAL: Denies fevers, chills, or night sweats. No unintentional weight loss reported. NEUROLOGICAL: Patient is bedbound,paraplegic to both lower extremities and complained of left arm pain and swollen Denies headache, ENT: No hearing loss, otalgia, otorrhea, rhinitis, rhinorrhea, hoarseness, or sore throat. CARDIOVASCULAR: Denies any exertional angina, dyspnea on exertion, orthopnea, paroxysmal nocturnal dyspnea, palpitations, life-threatening arrhythmias, claudication. PULMONARY: Denies any shortness of breath, cough, phlegm/sputum, hemoptysis, pleuritic chest pain. SLEEP: Denies morning headaches, daytime somnolence or napping. Denies difficulty falling asleep, staying asleep, waking from sleep. Denies knowledge of snoring. GASTROINTESTINAL: Denies any type of dysphagia to either liquids or solids. Denies nausea, vomiting, pyrosis, early satiety, abdominal pain, diarrhea, constipation, or changes in stool consistency or caliber. Denies coffee-ground e mesis, hematemesis, hematochezia, or melanotic stools. GENITOURINARY: Denies frequency, urgency, nocturia, hematuria and dysuria ENDOCRINOLOGIC: Denies polyuria, polydipsia, polyphagia or heat/cold int olerances. HEMATOLOGIC: Denies thrombophilia/previous clots, or coagulopathy/bleeding disorders. ONCOLOGIC: Denies personal history of malignancy. DERMATOLOGIC:Non healing sacral ulcer S/P debridement with JAMARI in place. PSYCHIATRIC: Denies any suicidal or homicidal ideation. Denies hallucinations. PHYSICAL EXAM GENERAL APPEARANCE: The patient is awake, alert, and oriented, in no acute cardiopulmonary distress. NEUROLOGICAL: paraplegic to both lower extremities.left arm contracted and both lower extremities HEENT: Face is symmetric. Pupils are equal and reactive. Extraocular movements are intact. NECK: Supple. No JVD. No thyromegaly. No submental, submandibular, pre- /postauricular, occipital or supraclavicular lymphadenopathy. CHEST: Normal chest expansion. No Telemetry. LUNGS: Absence of any rales, rhonchi or any wheezing. CARDIOVASCULAR: Regular. S1 and S2 normal. No appreciable rubs, murmurs or ga llops. ABDOMEN: Soft, nontender, and nondistended. There is no rebound, voluntary guarding, or rigidity. : Deferred. Lowery. EXTREMITIES: Good capillary refill.Both hands swollen and left armn swollen as well SKIN: Surgical incision to sacral area S/P debridement and skin flap with JAMARI drain placement .Redness to both hands Vital Signs (last 8hr) Date Time Temp Pulse Resp B/P (MAP) Pulse Ox O2 Delivery O2 Flow Rate FiO2 07/26/24 16:00 98.1 64 16 122/51 97 Room Air 07/26/24 12:00 98.6 72 16 108/43 98 Room Air LABS: Laboratory: Test 07/26/24 15:19 07/26/24 12:24 07/25/24 15:52 Range/Units Whole Blood Glucose 229 #H 70-110 MG/DL White Blood Count 5.1 4.8-10.8 K/uL Red Blood Count 3.69 L 4.50-6.20 MIL/uL Hemoglobin 9.7 L 14.0-18.0 g/dL Hematocrit 29.8 L 42-54 % Mean Corpuscular Volume 80.8 79-99 fL Mean Corpuscular Hemoglobin 26.3 L 27.0-33.0 pg Mean Corpuscular Hemoglobin Concent 32.6 32.0-36.0 g/dL Red Cell Distribution Width 14.3 11.0-15.5 % Platelet Count 333 130-400 K/uL Mean Platelet Volume 10.4 7.5-10.5 fL Immature Granulocyte % (Auto) 0.4 0-1 % Neutrophils (%) (Auto) 71.4 40.0-77.0 % Lymphocytes (%) (Auto) 18.1 L 21.0-51.0 % Monocytes (%) (Auto) 7.1 3.0-13.0 % Eosinophils (%) (Auto) 2.2 0.0-8.0 % Basophils (%) (Auto) 0.8 0.0-5.0 % Neutrophils # (Auto) 3.6 1.8-7.7 K/uL Lymphocytes # (Auto) 0.9 L 1.0-4.8 K/uL Monocytes # (Auto) 0.4 0.1-1.0 K/uL Eosinophils # (Auto) 0.11 0.00-0.70 K/uL Basophils # (Auto) 0.04 0.00-0.20 K/uL Absolute Immature Granulocyte (auto 0.02 0-1 K/uL Nucleated Red Blood Cells 0.0 0.0-0.19 % Sodium Level 129 L 136-145 mmol/L Potassium Level 3.8 3.5-5.1 mmol/L Chloride Level 97 L 101-111 mmol/L Carbon Dioxide Level 28 21-32 mmol/L Blood Urea Nitrogen 27 H 7-18 mg/dL Creatinine 0.9 0.5-1.3 mg/dL Glomerular Filtration Rate Calc 86 >90 mL/min Random Glucose 201 H 70-105 mg/dL Total Calcium 8.7 8.5-10.1 mg/dL Total Bilirubin 0.2 0.2-1.0 mg/dL Aspartate Amino Transf (AST/SGOT) 21 10-37 U/L Alanine Aminotransferase (ALT/SGPT) 18 12-78 U/L Alkaline Phosphatase 94 50-136 U/L Total Protein 6.3 6.0-8.3 g/dL Albumin 1.7 L 3.5-5.0 g/dL Bedside Glucose Comment Notified Nurse Current Medications Medications (Trade) Dose Ordered Sig/Luz Maria Route PRN Reason Start Time Stop Time Status Last Admin Dose Admin Acetaminophen (TYLenol 325MG TAB) 650 mg Q6H PRN PO MILD PAIN (1-3) 07/15/24 19:30 08/14/24 19:29 07/24/24 19:52 650 MG Amlodipine Besylate (NorvASC 5MG TAB) 5 mg DAILY PO 07/16/24 09:00 08/15/24 08:59 07/26/24 08:31 5 MG Bisacodyl (DulcoLAX) 10 mg DAILY PRN RC CONSTIPATION 07/17/24 11:00 08/16/24 10:59 07/26/24 16:48 10 MG Dextrose (D50w) 50 ml AD PRN IV HYPOGLYCEMIA PROTOCOL 07/22/24 21:00 08/21/24 20:59 Docusate Sodium (COLace 100MG CAP) 100 mg BID PO 07/15/24 21:00 08/14/24 20:59 07/26/24 08:31 100 MG Ferrous Sulfate (Ferrous Sulfate) 325 mg DAILY PO 07/25/24 12:30 08/24/24 12:29 07/26/24 08:30 325 MG Gabapentin (NEURontin 300 MG CAP) 300 mg DAILY PO 07/27/24 09:00 08/26/24 08:59 Gabapentin (NEURontin 300 MG CAP) 600 mg HS PO 07/26/24 21:00 08/25/24 20:59 Glucagon (Glucagon 1mg Kit) 1 mg AD PRN IM HYPOGLYCEMIA PROTOCOL 07/22/24 21:00 08/21/24 20:59 Heparin Sodium (Porcine) (HEParin 5,000 UNIT VIAL) 5,000 unit Q12H SQ 07/22/24 23:00 08/21/24 22:59 07/26/24 14:00 5,000 UNIT Home Med (Home Medication) (Linaclotide (Linzess) 145 MCG) Q3D PO 07/26/24 13:00 08/25/24 12:59 Home Med (Home Medication) (linzess 290 MCG) DAILYPRN PRN PO CONSTIPATION 07/17/24 12:30 08/16/24 12:29 07/18/24 11:39 1 EACH Hydrochlorothiazide (hydroCHLOROthiazide 25MG) 25 mg DAILY PO 07/16/24 09:00 08/15/24 08:59 07/26/24 08:30 25 MG Insulin Human Regular (humuLIN R 100 UNIT/ML 3ML) INSULIN SLIDING SCAL... ACHS SQ 07/22/24 21:00 08/21/24 20:59 07/26/24 16:52 4 UNIT Lactulose (Constulose 20gm/ 30ml Udcup) 20 gm BID PRN PO CONSTIPATION 07/17/24 11:00 08/16/24 10:59 07/26/24 13:55 20 GM Levofloxacin (LEvaquIN 500MG TAB) 250 mg DAILY PO 07/27/24 09:00 07/26/24 14:00 DC Levofloxacin (LEvaquIN 500MG TAB) 500 mg DAILY PO 07/27/24 09:00 08/06/24 08:59 Losartan Potassium (CozAAR 100MG TAB) 100 mg DAILY PO 07/16/24 09:00 08/15/24 08:59 07/26/24 08:31 100 MG Magnesium Sulfate 50 ml @ 0 mls/hr PROTOCOL PRN IV OTHER [SEE ORDER COMMENTS] 07/22/24 21:00 08/21/24 20:59 Metformin HCl (glucoPHAGE) 500 mg DAILYDINNER PO 07/16/24 17:00 07/25/24 10:07 DC 07/22/24 18:42 500 MG Miscellaneous Medication (Losartan/ Hydrochlorothiazide (Losartan-Hctz 100-25 mg Tab)) 1 tab DAILY PO 07/16/24 09:00 08/15/24 08:59 UNV Piperacillin Sod/ Tazobactam Sod (Zosyn 3.375gm+NS 50ml) 3.375 gm Q8H IV 07/21/24 17:00 07/23/24 16:59 DC 07/23/24 09:55 3.375 GM Potassium Chloride 100 ml @ 100 mls/hr AD PRN IV POTASSIUM PROTOCOL 07/22/24 21:00 08/21/24 20:59 Potassium Chloride (K-Dur/Klor-Con 20meq) 20 meq AD PRN PO POTASSIUM PROTOCOL 07/22/24 21:00 08/21/24 20:59 Potassium Chloride (KCl 10% Elixir 20meq/15ml) 20 meq AD PRN PO POTASSIUM PROTOCOL 07/22/24 21:00 08/21/24 20:59 Sennosides (Senna) 3 tab DAILY PRN PO CONSTIPATION 07/17/24 11:00 08/16/24 10:59 07/26/24 08:27 3 TAB DIAGNOSTICS / RADIOLOGY: [ ] ASSESSMENT: Non healing sacral ulcer S/P debridement and skin advancement flaps for closure with JAMARI drain placement on 07/15/2024 performed by Acute anemia POA Hyponatremia POA Uncontrolled Diabetes POA Neurogenic bladder POA Left arm pain POA Incomplete paraphlegia POA PLAN: Will continue to admit patient in medical surgical floor Will continue IV Antibiotic Will start on consistent carb diet Will check blood sugar AC and HS and start on insulin sliding scale with hypoglycemia protocol Will replace electytrolytes as needed per protocol Will check labs in am Continue admission orders per primary Further recommendations to follow depending upon hospitalization course Case discussed with the attending MD and came up with the above treatment and plan of care RESHMA OROZCO MD Jul 26, 2024 17:55
[2024-07-26 20:32] VITALS: BP 136/71; PULSE 76; RESP 18; TEMP 97.9
[2024-07-26] MEDS: GABAPENTIN 300 MG CAPSULE PO SCH (21:06)
[2024-07-26 23:19] VITALS: BP 138/74; PULSE 72; RESP 18; TEMP 98.1
[2024-07-27 03:56] VITALS: BP 124/63; PULSE 71; RESP 18; TEMP 98.2
[2024-07-27 08:00] VITALS: BP_SYST 112; BP_SYST 127; BP_DIAS 62; BP_DIAS 67; PULSE 65; PULSE 76; RESP 18; TEMP 97.7; TEMP 98.3; O2SAT 99
[2024-07-27] MEDS ORDERED: levoFLOXacin 500 MG TABLET PO SCH (09:00)
--- NOTE | 2024-07-27 09:00 | NUR ---
DISCONTINUED DRAIN TO SACRAL AREA FOLLOWING HOSPITAL POLICIES. PATIENT TOLERATED PROCEDURE WELL. EVALUATED SACRAL AREA BEFORE WOUND VAC PLACEMENT. PATIENT IS NOT A GOOD CANDIDATE FOR WOUND VAC PLACEMENT DUE TO LOCATION OF WOUND. WILL CONTACT WOUND [facility]ARE CENTER FOR 2ND OPINION. NOTIFY MR. SANABRIA WINDOW [employer] INSTALLER OF MY OBSERVATION.
[2024-07-27] MEDS: levoFLOXacin 500 MG TABLET PO SCH (09:08)
[2024-07-27] MEDS: GABAPENTIN 300 MG CAPSULE PO SCH (09:13)
--- NOTE | 2024-07-27 09:46 | NUR ---
DC PLAN UPDATES SENT TO [facility] FOR RE AUTH 07/26. NEW ORDER FOR WOUND VAC PLACED. Addendum: 07/27/24 at 0948 by DALI ARRINGTON RN CM Amended: Links added.
[2024-07-27] MEDS: ZOSYN 3.375GM +NS 50ML IV SCH (13:05)
--- NOTE | 2024-07-27 13:45 | NUR ---
[facility] Consult: Patient assessed by wound healing team for wound vac recommendations. Wound managed by Dr. Santos. See wound assessment. Assessment and recommendations provided to primary nurse. Education provided. Spoke with Emiliano MONIQUE, patient not a candidate at this time for wound vac placement due to wound location. Addendum: 07/27/24 at 1525 by JUNIE JONES RN RN/ Amended: Links added.
--- NOTE | 2024-07-27 13:45 | NUR ---
[facility] Consult: Patient assessed by wound healing team. See wound assessment. Assessment and recommendations provided to primary nurse. Education provided. Wound care done Addendum: 07/27/24 at 1525 by JUINE JONES RN RN/ Amended: Links added.
--- NOTE | 2024-07-27 15:59 | PN ---
Interval history: This 78-year-old male seen in his room resting Wound Care consulted and evaluating wound making no recommendations for wound VAC due to proximity to anus and high likelihood of contamination JAMARI drain removed yesterday Recommendations made for wet-to-dry with a Vashe daily Physical exam General: Awake alert and oriented Heart: Regular rate and rhythm} Lungs: Clear to auscultation no distress Abdomen: [Soft, nontender, nondistended Sutures in place no significant induration Assessment : This is an 78-year-old male status post excisional debridement of sacral ulcer Plan: Continue daily wound care and cleansing of wound No wound VAC at this time Await for placement Case management to update surgical team once arrangements have been set up Dr. Santos to be updated in patient's status and nursing report any further acute events Vitals/Labs Vital Signs Date Time Temp Pulse Resp B/P (MAP) Pulse Ox O2 Delivery O2 Flow Rate FiO2 07/27/24 08:00 97.7 65 18 127/67 98 Room Air 21 07/27/24 08:00 0 Medications Current Medications Cefazolin Sodium 2 gm STK-MED ONCE .ROUTE; Start 07/15/24 at 07:43; Stop 07/15/24 at 07:49; Status DC Sodium Chloride 1,000 ml @ As Directed STK-MED ONCE IV; Start 07/15/24 at 07:43; Stop 07/15/24 at 07:49; Status DC Cefazolin Sodium 2 gm STK-MED ONCE .ROUTE; Start 07/15/24 at 07:44; Stop 07/15/24 at 07:49; Status DC Sodium Chloride 1,000 ml @ As Directed STK-MED ONCE IV Last administered on 07/06 at 09:08; Start 07/15/24 at 07:44; Stop 07/15/24 at 07:49; Status DC Lidocaine HCl 100 mg STK-MED ONCE .ROUTE; Start 07/15/24 at 10:15; Stop 07/15/24 at 10:15; Status DC Dexamethasone Sodium Phosphate 4 mg STK-MED ONCE .ROUTE; Start 07/15/24 at 10:15 ; Stop 07/15/24 at 10:15; Status DC Ondansetron HCl 4 mg STK-MED ONCE .ROUTE; Start 07/15/24 at 10:15; Stop 07/15/24 at 10:15; Status DC Propofol 200 mg STK-MED ONCE IV; Start 07/15/24 at 10:15; Stop 07/15/24 at 10:16; Status DC Rocuronium [place] 50 mg STK-MED ONCE .ROUTE; Start 07/15/24 at 10:16; Stop 07/15/24 at 10:16; Status DC Fentanyl Citrate 100 mcg STK-MED ONCE .ROUTE; Start 07/15/24 at 10:16; Stop 07/15/24 at 10:16; Status DC Cefazolin Sodium 2 gm STK-MED ONCE IVPB Last administered on 07/15/24at 10:31; Start 07/15/24 at 10:31; Stop 07/15/24 at 11:12; Status DC Glycopyrrolate 1 mg STK-MED ONCE .ROUTE; Start 07/15/24 at 11:32; Stop 07/15/24 at 11:32; Status DC Neostigmine Methylsulfate 10 mg STK-MED ONCE IV; Start 07/15/24 at 11:32; Stop 07/15/24 at 11:32; Status DC Acetaminophen 650 mg Q6H PRN PO Last administered on 07/24/24at 19:52; Start 07/15/24 at 19:30; Stop 08/14/24 at 19:29 Docusate Sodium 100 mg BID PO Last administered on 07/27/24at 09:13; Start 07/15/24 at 21:00; Stop 08/14/24 at 20:59 Metformin HCl 500 mg DAILYDINNER PO Last administered on 07/22/24at 18:42; Start 07/16/24 at 17:00; Stop 07/25/24 at 10:07; Status DC Miscellaneous Medication 1 tab DAILY PO; Start 07/16/24 at 09:00; Stop 08/15/24 at 08:59; Status UNV Amlodipine Besylate 5 mg DAILY PO Last administered on 07/27/24at 09:13; Start 07/16/24 at 09:00; Stop 08/15/24 at 08:59 Losartan Potassium 100 mg DAILY PO Last administered on 07/27/24at 09:08; Start 07/16/24 at 09:00; Stop 08/15/24 at 08:59 Hydrochlorothiazide 25 mg DAILY PO Last administered on 07/27/24at 09:07; Start 07/16/24 at 09:00; Stop 08/15/24 at 08:59 Sennosides 3 tab DAILY PRN PO Last administered on 07/26/24at 08:27; Start 07/17/24 at 11:00; Stop 08/16/24 at 10:59 Lactulose 20 gm BID PRN PO Last administered on 07/26/24at 13:55; Start 07/17/24 at 11:00; Stop 08/16/24 at 10:59 Bisacodyl 10 mg DAILY PRN RC Last administered on 07/26/24at 16:48; Start 07/17/24 at 11:00; Stop 08/16/24 at 10:59 Home Med (linzess 290 MCG) DAILYPRN PRN PO Last administered on 07/18/24at 11: 39; Start 07/17/24 at 12:30; Stop 08/16/24 at 12:29 Piperacillin Sod/ Tazobactam Sod 3.375 gm Q8H IV Last administered on 07/23/24at 09:55; Start 07/21/24 at 17:00; Stop 07/23/24 at 16:59; Status DC Tramadol HCl 50 mg ONCE ONCE PO Last administered on 07/22/24at 21:07; Start 07/22/24 at 20:00; Stop 07/22/24 at 20:01; Status DC Insulin Human Regular INSULIN SLIDING SCAL... ACHS SQ Last administered on 07/26/24at 16:52; Start 07/22/24 at 21:00; Stop 08/21/24 at 20:59 Dextrose 50 ml AD PRN IV; Start 07/22/24 at 21:00; Stop 08/21/24 at 20:59 Glucagon 1 mg AD PRN IM; Start 07/22/24 at 21:00; Stop 08/21/24 at 20:59 Potassium Chloride 100 ml @ 100 mls/hr AD PRN IV; Start 07/22/24 at 21:00; Stop 08/21/24 at 20:59 Potassium Chloride 20 meq AD PRN PO; Start 07/22/24 at 21:00; Stop 08/21/24 at 20:59 Potassium Chloride 20 meq AD PRN PO; Start 07/22/24 at 21:00; Stop 08/21/24 at 20:59 Magnesium Sulfate 50 ml @ 0 mls/hr PROTOCOL PRN IV; Start 07/22/24 at 21:00; Stop 08/21/24 at 20:59 Acetaminophen/ Hydrocodone Bitart 2 tab ONCE ONCE PO Last administered on 07/22/24at 22:42; Start 07/22/24 at 23:00; Stop 07/22/24 at 23:01; Status DC Heparin Sodium (Porcine) 5,000 unit Q12H SQ Last administered on 07/27/24at 09:20; Start 07/22/24 at 23:00; Stop 08/21/24 at 22:59 Ferrous Sulfate 325 mg DAILY PO Last administered on 07/27/24at 09:13; Start 07/25/24 at 12:30; Stop 08/24/24 at 12:29 Levofloxacin 500 mg ONCE ONCE PO; Start 07/25/24 at 12:30; Stop 07/26/24 at 12:08; Status DC Levofloxacin 250 mg DAILY PO; Start 07/27/24 at 09:00; Stop 07/26/24 at 14:00; Status DC Levofloxacin 500 mg ONCE ONCE PO Last administered on 07/26/24at 13:55; Start 07/26/24 at 12:30; Stop 07/26/24 at 12:31; Status DC Gabapentin 300 mg DAILY PO Last administered on 07/27/24at 09:13; Start 07/27/24 at 09:00; Stop 08/26/24 at 08:59 Gabapentin 600 mg HS PO Last administered on 07/26/24at 21:06; Start 07/26/24 at 21:00; Stop 08/25/24 at 20:59 Home Med (Linaclotide (Linzess) 145 MCG) Q3D PO; Start 07/26/24 at 13:00; Stop 08/25/24 at 12:59 Levofloxacin 500 mg DAILY PO Last administered on 07/27/24at 09:08; Start 07/27/24 at 09:00; Stop 07/27/24 at 12:56; Status DC Piperacillin Sod/ Tazobactam Sod 3.375 gm Q8H IV Last administered on 07/27/24at 13:05; Start 07/27/24 at 13:00; Stop 08/06/24 at 12:59 REMI HALE Jr. 22, 2025 15:59
[2024-07-27 16:00] VITALS: BP 120/57; PULSE 65; RESP 18; TEMP 98.6
--- NOTE | 2024-07-27 17:41 | PN ---
[facility] PROGRESS NOTE Date of Service: Jul 27, 2024 Time of Service: 17:39 SUBJECTIVE: [ ] 07/23/24 patient is seen and examined and case discussed with RN No overnight events labs have been reviewed. Continue current care 07/24/24 Postop day nine after excision of decubitus ulcer and primary closure. Patient was seen and examined and case discussed with the RN. He continues to do well and denies any excessive pain. No nausea vomiting fever or chills 07/25/14 Postop day nine after excision of decubitus ulcer and primary closure. Patient was seen and examined and case discussed with the RN. Medically stable and can be discharged when placement secured per surgery 07/26/24 Postop day TEN after excision of decubitus ulcer and primary closure. Patient was seen and examined and case discussed with the RN. Medically stable and can be discharged when placement secured per surgery/examined wound on the back with good color and minimal drainage/JPD in place/surgery to reeval/Follow cultures and ID consulted due to pseudomonas 07/27/24 Postop day 11 after excision of decubitus ulcer and primary closure. Patient was seen and examined and case discussed with the RN. Medically stable and can be discharged when placement secured per surgery Wound Care consulted and evaluating wound making no recommendations for wound VAC due to proximity to anus and high likelihood of contamination JAMARI drain removed yesterday Recommendations made for wet-to-dry with a Vashe daily REVIEW OF SYSTEMS CONSTITUTIONAL: Denies fevers, chills, or night sweats. No unintentional weight loss reported. NEUROLOGICAL: Patient is bedbound,paraplegic to both lower extremities and complained of left arm pain and swollen Denies headache, ENT: No hearing loss, otalgia, otorrhea, rhinitis, rhinorrhea, hoarseness, or sore throat. CARDIOVASCULAR: Denies any exertional angina, dyspnea on exertion, orthopnea, paroxysmal nocturnal dyspnea, palpitations, life-threatening arrhythmias, claudication. PULMONARY: Denies any shortness of breath, cough, phlegm/sputum, hemoptysis, pleuritic chest pain. SLEEP: Denies morning headaches, daytime somnolence or napping. Denies diffic ulty falling asleep, staying asleep, waking from sleep. Denies knowledge of snoring. GASTROINTESTINAL: Denies any type of dysphagia to either liquids or solids. Denies nausea, vomiting, pyrosis, early satiety, abdominal pain, diarrhea, constipation, or changes in stool consistency or caliber. Denies coffee-ground emesis, hematemesis, hematochezia, or melanotic stools. GENITOURINARY: Denies frequency, urgency, nocturia, hematuria and dysuria ENDOCRINOLOGIC: Denies polyuria, polydipsia, polyphagia or heat/cold intolerances. HEMATOLOGIC: Denies thrombophilia/previous clots, or coagulopathy/bleeding disorders. ONCOLOGIC: Denies personal history of malignancy. DERMATOLOGIC:Non healing sacral ulcer S/P debridement with JAMARI in place. PSYCHIATRIC: Denies any suicidal or homicidal ideation. Denies hallucinations. PHYSICAL EXAM GENERAL APPEARANCE: The patient is awake, alert, and oriented, in no acute cardiopulmonary distress. NEUROLOGICAL: paraplegic to both lower extremities.left arm contracted and both lower extremities HEENT: Face is symmetric. Pupils are equal and reactive. Extraocular movements are intact. NECK: Supple. No JVD. No thyromegaly. No submental, submandibular, pre-/postauricular, occipital or supraclavicular lymphadenopathy. CHEST: Normal chest expansion. No Telemetry. LUNGS: Absence of any rales, rhonchi or any wheezing. CARDIOVASCULAR: Regular. S1 and S2 normal. No appreciable rubs, murmurs or gallops. ABDOMEN: Soft, nontender, and nondistended. There is no rebound, voluntary guarding, or rigidity. : Deferred. [place]. EXTREMITIES: Good capillary refill.Both hands swollen and left armn swollen as well SKIN: Surgical incision to sacral area S/P debridement and skin flap with JAMARI drain placement .Redness to both hands Vital Signs (last 8hr) Date Time Temp Pulse Resp B/P (MAP) Pulse Ox O2 Delivery O2 Flow Rate FiO2 07/27/24 16:00 98.6 65 18 120/57 99 Room Air 21 LABS: Laboratory: Test 07/27/24 15:37 07/26/24 12:24 Range/Units Whole Blood Glucose 126 H 70-110 MG/DL White Blood Count 5.1 4.8-10.8 K/uL Red Blood Count 3.69 L 4.50-6.20 MIL/uL Hemoglobin 9.7 L 14.0-18.0 g/dL Hematocrit 29.8 L 42-54 % Mean Corpuscular Volume 80.8 79-99 fL Mean Corpuscular Hemoglobin 26.3 L 27.0-33.0 pg Mean Corpuscular Hemoglobin Concent 32.6 32.0-36.0 g/dL Red Cell Distribution Width 14.3 11.0-15.5 % Platelet Count 333 130-400 K/uL Mean Platelet Volume 10.4 7.5-10.5 fL Immature Granulocyte % (Auto) 0.4 0-1 % Neutrophils (%) (Auto) 71.4 40.0-77.0 % Lymphocytes (%) (Auto) 18.1 L 21.0-51.0 % Monocytes (%) (Auto) 7.1 3.0-13.0 % Eosinophils (%) (Auto) 2.2 0.0-8.0 % Basophils (%) (Auto) 0.8 0.0-5.0 % Neutrophils # (Auto) 3.6 1.8-7.7 K/uL Lymphocytes # (Auto) 0.9 L 1.0-4.8 K/uL Monocytes # (Auto) 0.4 0.1-1.0 K/uL Eosinophils # (Auto) 0.11 0.00-0.70 K/uL Basophils # (Auto) 0.04 0.00-0.20 K/uL Absolute Immature Granulocyte (auto 0.02 0-1 K/uL Nucleated Red Blood Cells 0.0 0.0-0.19 % Sodium Level 129 L 136-145 mmol/L Potassium Level 3.8 3.5-5.1 mmol/L Chloride Level 97 L 101-111 mmol/L Carbon Dioxide Level 28 21-32 mmol/L Blood Urea Nitrogen 27 H 7-18 mg/dL Creatinine 0.9 0.5-1.3 mg/dL Glomerular Filtration Rate Calc 86 >90 mL/min Random Glucose 201 H 70-105 mg/dL Total Calcium 8.7 8.5-10.1 mg/dL Total Bilirubin 0.2 0.2-1.0 mg/dL Aspartate Amino Transf (AST/SGOT) 21 10-37 U/L Alanine Aminotransferase (ALT/SGPT) 18 12-78 U/L Alkaline Phosphatase 94 50-136 U/L Total Protein 6.3 6.0-8.3 g/dL Albumin 1.7 L 3.5-5.0 g/dL Current Medications Medications (Trade) Dose Ordered Sig/Luz Maria Route PRN Reason Start Time Stop Time Status Last Admin Dose Admin Acetaminophen (TYLenol 325MG TAB) 650 mg Q6H PRN PO MILD PAIN (1-3) 07/15/24 19:30 08/14/24 19:29 07/24/24 19:52 650 MG Amlodipine Besylate (NorvASC 5MG TAB) 5 mg DAILY PO 07/16/24 09:00 08/15/24 08:59 07/27/24 09:13 5 MG Bisacodyl (DulcoLAX) 10 mg DAILY PRN RC CONSTIPATION 07/17/24 11:00 08/16/24 10:59 07/26/24 16:48 10 MG Dextrose (D50w) 50 ml AD PRN IV HYPOGLYCEMIA PROTOCOL 07/22/24 21:00 08/21/24 20:59 Docusate Sodium (COLace 100MG CAP) 100 mg BID PO 07/15/24 21:00 08/14/24 20:59 07/27/24 09:13 100 MG Ferrous Sulfate (Ferrous Sulfate) 325 mg DAILY PO 07/25/24 12:30 08/24/24 12:29 07/27/24 09:13 325 MG Gabapentin (NEURontin 300 MG CAP) 300 mg DAILY PO 07/27/24 09:00 08/26/24 08:59 07/27/24 09:13 300 MG Gabapentin (NEURontin 300 MG CAP) 600 mg HS PO 07/26/24 21:00 08/25/24 20:59 07/26/24 21:06 600 MG Glucagon (Glucagon 1mg Kit) 1 mg AD PRN IM HYPOGLYCEMIA PROTOCOL 07/22/24 21:00 08/21/24 20:59 Heparin Sodium (Porcine) (HEParin 5,000 UNIT VIAL) 5,000 unit Q12H SQ 07/22/24 23:00 08/21/24 22:59 07/27/24 09:20 5,000 UNIT Home Med (Home Medication) (Linaclotide (Linzess) 145 MCG) Q3D PO 07/26/24 13:00 08/25/24 12:59 Home Med (Home Medication) (linzess 290 MCG) DAILYPRN PRN PO CONSTIPATION 07/17/24 12:30 08/16/24 12:29 07/18/24 11:39 1 EACH Hydrochlorothiazide (hydroCHLOROthiazide 25MG) 25 mg DAILY PO 07/16/24 09:00 08/15/24 08:59 07/27/24 09:07 25 MG Insulin Human Regular (humuLIN R 100 UNIT/ML 3ML) INSULIN SLIDING SCAL... ACHS SQ 07/22/24 21:00 08/21/24 20:59 07/26/24 16:52 4 UNIT Lactulose (Constulose 20gm/ 30ml Udcup) 20 gm BID PRN PO CONSTIPATION 07/17/24 11:00 08/16/24 10:59 07/26/24 13:55 20 GM Levofloxacin (LEvaquIN 500MG TAB) 250 mg DAILY PO 07/27/24 09:00 07/26/24 14:00 DC Levofloxacin (LEvaquIN 500MG TAB) 500 mg DAILY PO 07/27/24 09:00 07/27/24 12:56 DC 07/27/24 09:08 500 MG Losartan Potassium (CozAAR 100MG TAB) 100 mg DAILY PO 07/16/24 09:00 08/15/24 08:59 07/27/24 09:08 100 MG Magnesium Sulfate 50 ml @ 0 mls/hr PROTOCOL PRN IV OTHER [SEE ORDER COMMENTS] 07/22/24 21:00 08/21/24 20:59 Metformin HCl (glucoPHAGE) 500 mg DAILYDINNER PO 07/16/24 17:00 07/25/24 10:07 DC 07/22/24 18:42 500 MG Miscellaneous Medication (Losartan/ Hydrochlorothiazide (Losartan-Hctz 100-25 mg Tab)) 1 tab DAILY PO 07/16/24 09:00 08/15/24 08:59 UNV Piperacillin Sod/ Tazobactam Sod (Zosyn 3.375gm+NS 50ml) 3.375 gm Q8H IV 07/21/24 17:00 07/23/24 16:59 DC 07/23/24 09:55 3.375 GM Piperacillin Sod/ Tazobactam Sod (Zosyn 3.375gm+NS 50ml) 3.375 gm Q8H IV 07/27/24 13:00 08/06/24 12:59 07/27/24 13:05 3.375 GM Potassium Chloride 100 ml @ 100 mls/hr AD PRN IV POTASSIUM PROTOCOL 07/22/24 21:00 08/21/24 20:59 Potassium Chloride (K-Dur/Klor-Con 20meq) 20 meq AD PRN PO POTASSIUM PROTOCOL 07/22/24 21:00 08/21/24 20:59 Potassium Chloride (KCl 10% Elixir 20meq/15ml) 20 meq AD PRN PO POTASSIUM PROTOCOL 07/22/24 21:00 08/21/24 20:59 Sennosides (Senna) 3 tab DAILY PRN PO CONSTIPATION 07/17/24 11:00 08/16/24 10:59 07/26/24 08:27 3 TAB DIAGNOSTICS / RADIOLOGY: [ ] ASSESSMENT: Non healing sacral ulcer S/P debridement and skin advancement flaps for closure with JAMARI drain placement on 07/15/2024 performed by Acute anemia POA Hyponatremia POA Uncontrolled Diabetes POA Neurogenic bladder POA Left arm pain POA Incomplete paraphlegia POA PLAN: Will continue to admit patient in medical surgical floor Will continue IV Antibiotic Will start on consistent carb diet Will check blood sugar AC and HS and start on insulin sliding scale with hypoglycemia protocol Will replace electytrolytes as needed per protocol Will check labs in am Continue admission orders per primary Further recommendations to follow depending upon hospitalization course Case discussed with the attending MD and came up with the above treatment and plan of care RESHMA OROZCO MD Jul 27, 2024 17:41
--- NOTE | 2024-07-27 18:00 | NUR ---
PERFORMED WOUND CARE DIRECTED BY PHYSICIAN. PATIENT TOLERATED WOUND CARE WITHOUT COMPLICATIONS.
[2024-07-27 20:00] VITALS: BP 126/53; PULSE 65; RESP 19; TEMP 98.1; O2SAT 97
--- NOTE | 2024-07-27 22:39 | CONS ---
INFECTIOUS DISEASE CONSULTATION DATE OF SERVICE: 07/27/2024 REQUESTING PHYSICIAN: Magda Abel MD REASON FOR CONSULTATION: Sepsis and sacrococcygeal ulcer. HISTORY OF PRESENT ILLNESS: An unfortunate 78-year-old male with history of paraplegia, bedbound status, diabetes mellitus who was originally admitted with fever and sacral ulcer. The patient was found to have necrotic sacral infection. Underwent debridement and flap closure. Unfortunately, incision seemed to be breaking down. Wound culture came back multiple organisms including Enterococcus species, E. coli, Morganella morganii and Pseudomonas. The patient at present on levofloxacin. No cough, no hemoptysis or pleuritic pain. No bleeding tendency. PAST MEDICAL HISTORY: * Hypertension. * Diabetes mellitus. * Dyslipidemia. * Hypothyroidism. * Paraplegia, lower extremities * Sacrococcygeal ulcer. PAST SURGICAL HISTORY: Sacrococcygeal wound debridement. ALLERGIES: IODINE. CURRENT MEDICATIONS: Include: * Levofloxacin. * Insulin. * Losartan. * Lovenox. * Hydrochlorothiazide. * Ferrous sulfate. SOCIAL HISTORY: Lives with . No alcohol, tobacco or illicit drug use. FAMILY HISTORY: Positive for diabetes mellitus. REVIEW OF SYSTEMS: Greater than 10 systems were reviewed, negative except as documented above. PHYSICAL EXAMINATION: GENERAL: Elderly male, awake, not in distress, afebrile to touch. VITAL SIGNS: Temperature 98.4, pulse 76, respiratory rate 18, BP 112/62. EYES: No icterus. Pupils equal and reactive. HENT: No oral thrush seen. Moist oral mucosa. NECK: Supple, no JVD or thyromegaly. LUNGS: Good air entry. No rales, no rhonchi. CARDIOVASCULAR: S1, S2 regular. No murmur heard. ABDOMEN: Full, soft, nontender. Bowel sounds present. CENTRAL NERVOUS SYSTEM: Awake, alert, oriented x 3, bedbound with paraplegia in lower extremities. SKIN: No rashes, no itchiness. LYMPHATIC: No peripheral lymphadenopathy. BACK: No deformity. Wound in the sacrococcygeal area. Incision with area of breakdown and drainage. LABORATORY DATA: Sodium 129, potassium 3.8, BUN 27, creatinine 0.9. WBC 5.1, hemoglobin 9.7, platelets 232. Wound culture grew: * Enterococcus durans. * E. coli. * Morganella morganii. * Pseudomonas aeruginosa. Blood culture, no growth for 5 days. DIAGNOSTIC DATA: Venous Doppler, right upper extremity, shows thrombosis of the right cephalic vein ASSESSMENT: An 78-year-old male admitted with sacral wound and fever. Current problems include: * Sepsis. * Sacrococcygeal ulcer, status post debridement and flap placement. * Hyponatremia. * Diabetes mellitus. * Anemia. * Polymicrobic infection. * Right upper extremity cephalic vein thrombosis. PLAN: * Discontinue levofloxacin. * Start the patient on Zosyn. * Continue wound care. * Continue pain management. * Continue antidiabetic. * Continue ____. * Continue nutritional support. * Continue DVT prophylaxis. * Monitor electrolytes. * The patient will be followed up closely. Thank you for allowing me to participate in the care of this patient. TID: [id number] RECEIPT: [id number]
[2024-07-28] VITALS (7 sets, daily range): BP systolic 123–146; BP diastolic 57–64; PULSE 64–74; RESP 16–18; TEMP 97.6–98.3; O2SAT 98
--- NOTE | 2024-07-28 11:30 | NUR ---
blood glucose 182. covered with 2 units of Humulin R subcutaneous; following insulin scale on patients e-sep.
--- NOTE | 2024-07-28 12:31 | PN ---
INFECTIOUS DISEASE PROGRESS NOTE Date of Service: Jul 28, 2024 SUBJECTIVE: This is a 78-year-old male patient with past medical history of paraplegia to lower extremities and a nonhealing sacrococcygeal ulcer. Patient was seen and examined at bedside in room 418. Patient is status post excisional debridement and skin flap placement for closure on 07/15/2024. Patient with polymicrobial wound infection with Enterococcus Durans/Hirae, E coli, Morganella morganii and Pseudomonas aeruginosa. Patient has been started on Zosyn IV every 8 hours. We will obtain an MRI of the pelvis with contrast to rule out sacral bone osteomyelitis. No fever, temperature is 98.1. We will continue to follow patient's care. PHYSICAL EXAM EYES: Anicteric. Pupils equal and reactive. HENT: No oral thrush seen, moist Oral mucosa. NECK: Supple, no JVD or thyromegaly. LUNGS: Good air entry. No rales, no rhonchi. CARDIOVASCULAR: S1, S2 regular. No murmur heard. ABDOMEN: Soft, non tender, bowel sounds present, no organomegaly. CENTRAL NERVOUS SYSTEM: Awake, alert, oriented x 3. SKIN: No rashes, no swelling. LYMPHATICS: No peripheral lymphadenopathy. MUSCULOSKELETAL: No joint swelling, erythema or tenderness. EXTREMITIES: No cyanosis or clubbing. Paraplegia to lower extremities. BACK: No deformity, no pressure ulcer. Sacrococcygeal wound. GENITOURINARY: No dysuria or hematuria. Lowery catheter. Vital Sign (Last 12 Hours) 07/28/24 07/28/24 07/28/24 03:46 07:59 11:22 Temp 97.5 98.1 97.7 Pulse 64 64 68 Resp 18 16 18 B/P (MAP) 125/57 123/64 146/61 Pulse Ox 100 98 99 O2 Delivery Room Air Room Air Room Air Intake & Output (last 24hrs) 07/27/24 07/27/24 07/28/24 15:00 23:00 07:00 Intake Total 1800 ml 200.0 ml Output Total 1000 ml Balance 1800 ml -800.0 ml LABS: Laboratory: Test 07/28/24 11:00 07/26/24 12:24 Range/Units Whole Blood Glucose 182 #H 70-110 MG/DL Bedside Glucose Comment Notified Nurse White Blood Count 5.1 4.8-10.8 K/uL Red Blood Count 3.69 L 4.50-6.20 MIL/uL Hemoglobin 9.7 L 14.0-18.0 g/dL Hematocrit 29.8 L 42-54 % Mean Corpuscular Volume 80.8 79-99 fL Mean Corpuscular Hemoglobin 26.3 L 27.0-33.0 pg Mean Corpuscular Hemoglobin Concent 32.6 32.0-36.0 g/dL Red Cell Distribution Width 14.3 11.0-15.5 % Platelet Count 333 130-400 K/uL Mean Platelet Volume 10.4 7.5-10.5 fL Immature Granulocyte % (Auto) 0.4 0-1 % Neutrophils (%) (Auto) 71.4 40.0-77.0 % Lymphocytes (%) (Auto) 18.1 L 21.0-51.0 % Monocytes (%) (Auto) 7.1 3.0-13.0 % Eosinophils (%) (Auto) 2.2 0.0-8.0 % Basophils (%) (Auto) 0.8 0.0-5.0 % Neutrophils # (Auto) 3.6 1.8-7.7 K/uL Lymphocytes # (Auto) 0.9 L 1.0-4.8 K/uL Monocytes # (Auto) 0.4 0.1-1.0 K/uL Eosinophils # (Auto) 0.11 0.00-0.70 K/uL Basophils # (Auto) 0.04 0.00-0.20 K/uL Absolute Immature Granulocyte (auto 0.02 0-1 K/uL Nucleated Red Blood Cells 0.0 0.0-0.19 % Sodium Level 129 L 136-145 mmol/L Potassium Level 3.8 3.5-5.1 mmol/L Chloride Level 97 L 101-111 mmol/L Carbon Dioxide Level 28 21-32 mmol/L Blood Urea Nitrogen 27 H 7-18 mg/dL Creatinine 0.9 0.5-1.3 mg/dL Glomerular Filtration Rate Calc 86 >90 mL/min Random Glucose 201 H 70-105 mg/dL Total Calcium 8.7 8.5-10.1 mg/dL Total Bilirubin 0.2 0.2-1.0 mg/dL Aspartate Amino Transf (AST/SGOT) 21 10-37 U/L Alanine Aminotransferase (ALT/SGPT) 18 12-78 U/L Alkaline Phosphatase 94 50-136 U/L Total Protein 6.3 6.0-8.3 g/dL Albumin 1.7 L 3.5-5.0 g/dL DIAGNOSTICS / RADIOLOGY: PATIENT: JERARDO BACH ACCT: [id number] LOC: [facility] U: [id number] AGE/SX: 78/M ROOM: [facility] RE07/15/[address]: ANISA BEJARANO MD : 1945 BED: 1 DIS: STATUS: ADM IN TLOC: SPEC: [id number] ZENIA: 07/22/24 STATUS: COMP REQ: [id number] RECD: 07/22/[address]: BETSY ROACH [facility] SOURCE: [facility] ENTR: 07/22/[address]: FREDERIC LANIER MD SPDESC: NAGA CEBALLOS MD, RAQUEL M MD ORDERED: ESTELLA CULTURE, AEROBIC CULTURE COMMENTS: Has specimen been collected/obtained? Y Has specimen been collected/obtained? Y Has specimen been collected/obtained? Y Has specimen been collected/obtained? Y Has specimen been collected/obtained? Y Has specimen been collected/obtained? Y Has specimen been collected/obtained? Y Has specimen been collected/obtained? Y Has specimen been collected/obtained? Y Has specimen been collected/obtained? Y Has specimen been collected/obtained? Y Has specimen been collected/obtained? Y Has specimen been collected/obtained? Y Has specimen been collected/obtained? Y Has specimen been collected/obtained? Y Has specimen been collected/obtained? Y Has specimen been collected/obtained? Y Has specimen been collected/obtained? Y Has specimen been collected/obtained? Y Has specimen been collected/obtained? Y Has specimen been collected/obtained? Y Procedure Result Isa Date-Time ANAEROBIC CULTURE Final 07/26/24-1051 MRL COLONY DESCRIPTION: REPORT 1: NO ANAEROBES AT 16-23 HOURS; STUDIES TO CONTINUE REPORT 2: NO ANAEROBES AT 36-47 HOURS; STUDIES TO CONTINUE REPORT 3: NO ANAEROBES AT 60 TO 71 HOURS Test(s) performed by: [facility] [address] [place] [address] AEROBIC CULTURE Final 07/26/24-1051 MRL COLONY DESCRIPTION: REPORT 1: 2+ GRAM NEGATIVE RODS IDENTIFICATION AND SENSITIVITY TO FOLLOW REPORT 2: 1+ GRAM POSITIVE COCCI IN CHAINS POSSIBLE ENTEROCOCCUS SPECIES RUN DATE: 07/26/24 [facility] PAGE 2 RUN TIME: [id number] [address], [place] [address] Department of Laboratories [facility] # [id number] Knocker Off: Angie Don DO Specimen Report SPEC: [id number] PATIENT: JERARDO BACH [id number] (Continued) Procedure Result Isa Date-Time CONTINUED ON NEXT PAGE RUN DATE: 07/26/24 [facility] PAGE 3 RUN TIME: [address] [address] Department of Laboratories CLIA # [id number] Knocker Off: Angie Don DO Specimen Report SPEC: [id number] PATIENT: JERARDO BACH [id number] (Continued) Procedure Result Isa Date-Time -- AEROBIC CULTURE Final (continued) 07/26/24-1052 . IDENTIFICATION AND SENSITIVITY TO FOLLOW REPORT 3: NO FURTHER WORK-UP DONE ENTEROCOCCUS DURANS/HIRAE ESCHERICHIA COLI MORGANELLA MORGANII PSEUDOMONAS AERUGINOSA ENTEROCOCC E COLI M.I.C. RX M.I.C. RX --------- ---- --------- ---- AMPICILLIN <=2 S >16 R AZTREONAM <=4 S CEFAZOLIN >16 R CEFTAZIDIME <=1 S CEFTAZIDIME/AVIBACTAM <=8 S CEFTRIAXONE 2 I CIPROFLOXACIN GENTAMICIN <=2 S LEVOFLOXACIN <=0.5 S VANCOMYCIN <=0.5 S AMPICILLIN/SULBACTAM >16/8 R GENTAMICIN Synergy Screen <=500 S MEROPENEM <=1 S PENICILLIN 2 S PIPERACILLIN/TAZOBACTAM <=8 S TRIMETHOPRIM/SUFLAMETHOXAZOLE <=2/38 S BUBBA Garg M.I.C. RX M.I.C. RX --------- ---- --------- ---- AMPICILLIN AZTREONAM >16 R <=4 S CEFAZOLIN CEFTAZIDIME 4 S CEFTAZIDIME/AVIBACTAM <=8 S <=8 S CEFTRIAXONE CIPROFLOXACIN <=0.25 S GENTAMICIN <=2 S LEVOFLOXACIN <=0.5 S <=0.5 S VANCOMYCIN AMPICILLIN/SULBACTAM >16/8 R GENTAMICIN Synergy Screen MEROPENEM <=1 S <=1 S PENICILLIN PIPERACILLIN/TAZOBACTAM <=8 S <=8 S ASSESSMENT: Sepsis. Sacrococcygeal ulcer, status post debridement and flap placement on 07/15/2024. Wound with Polymicrobial infection. Diabetes mellitus. Paraplegia of lower extremities. PLAN: Obtain MRI with contrast of the pelvis to rule out sacral bone osteomyelitis. Continue Zosyn IV. Continue wound care as recommended by the wound care team. Continue pain management. Continue monitoring glucose levels. We will monitor electrolytes. This case was reviewed and discussed with my supervising physician and the above assessment and plan was formulated and agreed upon. ATTESTATION BY PHYSICIAN I have seen and examined the patient. I reviewed the documentation, medical decision making, and treatment plan as noted by the mid-level provider above. I agree with the findings and plan of care. LORENZO WILSON MD, MIRTA L STORE SPECIALIST Jul 28, 2024 12:31
--- NOTE | 2024-07-28 15:20 | PN ---
Interval history: This 78-year-old male seen in his room resting Wet-to-dry dressing in place ID following patient for recommendations Patient otherwise stable Physical exam General: Awake alert and oriented Heart: Regular rate and rhythm} Lungs: Clear to auscultation no distress Abdomen: [Soft, nontender, nondistended Sutures in place no significant induration Assessment : This is an 78-year-old male status post excisional debridement of sacral ulcer Plan: Continue daily wound care and cleansing of wound MRI ordered by ID to evaluate for potential osteomyelitis Await for placement Case management to update surgical team once arrangements have been set up Dr. Santos to be updated in patient's status and nursing report any further acute events Vitals/Labs Vital Signs Date Time Temp Pulse Resp B/P (MAP) Pulse Ox O2 Delivery O2 Flow Rate FiO2 07/28/24 11:22 97.7 68 18 146/61 99 Room Air 07/28/24 08:00 0 21 Medications Current Medications Cefazolin Sodium 2 gm STK-MED ONCE .ROUTE; Start 07/15/24 at 07:43; Stop 07/15/24 at 07:49; Status DC Sodium Chloride 1,000 ml @ As Directed STK-MED ONCE IV; Start 07/15/24 at 07:43; Stop 07/15/24 at 07:49; Status DC Cefazolin Sodium 2 gm STK-MED ONCE .ROUTE; Start 07/15/24 at 07:44; Stop 07/15/24 at 07:49; Status DC Sodium Chloride 1,000 ml @ As Directed STK-MED ONCE IV Last administered on 07/15/24at 09:08; Start 07/15/24 at 07:44; Stop 07/15/24 at 07:49; Status DC Lidocaine HCl 100 mg STK-MED ONCE .ROUTE; Start 07/15/24 at 10:15; Stop 07/15/24 at 10:15; Status DC Dexamethasone Sodium Phosphate 4 mg STK-MED ONCE .ROUTE; Start 07/15/24 at 10:15; Stop 07/15/24 at 10:15; Status DC Ondansetron HCl 4 mg STK-MED ONCE .ROUTE; Start 07/15/24 at 10:15; Stop 07/15/24 at 10:15; Status DC Propofol 200 mg STK-MED ONCE IV; Start 07/15/24 at 10:15; Stop 07/15/24 at 10:16; Status DC Rocuronium [place] 50 mg STK-MED ONCE .ROUTE; Start 07/15/24 at 10:16; Stop 07/15/24 at 10:16; Status DC Fentanyl Citrate 100 mcg STK-MED ONCE .ROUTE; Start 07/15/24 at 10:16; Stop 07/15/24 at 10:16; Status DC Cefazolin Sodium 2 gm STK-MED ONCE IVPB Last administered on 07/15/24at 10:31; Start 07/15/24 at 10:31; Stop 07/15/24 at 11:12; Status DC Glycopyrrolate 1 mg STK-MED ONCE .ROUTE; Start 07/15/24 at 11:32; Stop 07/15/24 at 11:32; Status DC Neostigmine Methylsulfate 10 mg STK-MED ONCE IV; Start 07/15/24 at 11:32; Stop 07/15/24 at 11:32; Status DC Acetaminophen 650 mg Q6H PRN PO Last administered on 07/24/24at 19:52; Start 07/15/24 at 19:30; Stop 08/14/24 at 19:29 Docusate Sodium 100 mg BID PO Last administered on 07/28/24at 09:39; Start 07/15/24 at 21:00; Stop 08/14/24 at 20:59 Metformin HCl 500 mg DAILYDINNER PO Last administered on 07/22/24at 18:42; Start 07/16/24 at 17:00; Stop 07/25/24 at 10:07; Status DC Miscellaneous Medication 1 tab DAILY PO; Start 07/16/24 at 09:00; Stop 08/15/24 at 08:59; Status UNV Amlodipine Besylate 5 mg DAILY PO Last administered on 07/28/24at 09:39; Start 07/16/24 at 09:00; Stop 08/15/24 at 08:59 Losartan Potassium 100 mg DAILY PO Last administered on 07/28/24at 09:39; Start 07/16/24 at 09:00; Stop 08/15/24 at 08:59 Hydrochlorothiazide 25 mg DAILY PO Last administered on 07/28/24at 09:39; Start 07/16/24 at 09:00; Stop 08/15/24 at 08:59 Sennosides 3 tab DAILY PRN PO Last administered on 07/26/24at 08:27; Start 07/17/24 at 11:00; Stop 08/16/24 at 10:59 Lactulose 20 gm BID PRN PO Last administered on 07/26/24at 13:55; Start 07/17/24 at 11:00; Stop 08/16/24 at 10:59 Bisacodyl 10 mg DAILY PRN RC Last administered on 07/26/24at 16:48; Start 07/17/24 at 11:00; Stop 08/16/24 at 10:59 Home Med (linzess 290 MCG) DAILYPRN PRN PO Last administered on 07/18/24at 11:39; Start 07/17/24 at 12:30; Stop 08/16/24 at 12:29 Piperacillin Sod/ Tazobactam Sod 3.375 gm Q8H IV Last administered on 07/23/24at 09:55; Start 07/21/24 at 17:00; Stop 07/23/24 at 16:59; Status DC Tramadol HCl 50 mg ONCE ONCE PO Last administered on 07/22/24at 21:07; Start 07/22/24 at 20:00; Stop 07/22/24 at 20:01; Status DC Insulin Human Regular INSULIN SLIDING SCAL... ACHS SQ Last administered on 07/26/24at 16:52; Start 07/22/24 at 21:00; Stop 08/21/24 at 20:59 Dextrose 50 ml AD PRN IV; Start 07/22/24 at 21:00; Stop 08/21/24 at 20:59 Glucagon 1 mg AD PRN IM; Start 07/22/24 at 21:00; Stop 08/21/24 at 20:59 Potassium Chloride 100 ml @ 100 mls/hr AD PRN IV; Start 07/22/24 at 21:00; Stop 08/21/24 at 20:59 Potassium Chloride 20 meq AD PRN PO; Start 07/22/24 at 21:00; Stop 08/21/24 at 20:59 Potassium Chloride 20 meq AD PRN PO; Start 07/22/24 at 21:00; Stop 08/21/24 at 20:59 Magnesium Sulfate 50 ml @ 0 mls/hr PROTOCOL PRN IV; Start 07/22/24 at 21:00; Stop 08/21/24 at 20:59 Acetaminophen/ Hydrocodone Bitart 2 tab ONCE ONCE PO Last administered on 07/22/24at 22:42; Start 07/22/24 at 23:00; Stop 07/22/24 at 23:01; Status DC Heparin Sodium (Porcine) 5,000 unit Q12H SQ Last administered on 07/28/24at 00:39; Start 07/22/24 at 23:00; Stop 08/21/24 at 22:59 Ferrous Sulfate 325 mg DAILY PO Last administered on 07/28/24at 09:39; Start 07/25/24 at 12:30; Stop 08/24/24 at 12:29 Levofloxacin 500 mg ONCE ONCE PO; Start 07/25/24 at 12:30; Stop 07/26/24 at 12:08; Status DC Levofloxacin 250 mg DAILY PO; Start 07/27/24 at 09:00; Stop 07/26/24 at 14:00; Status DC Levofloxacin 500 mg ONCE ONCE PO Last administered on 07/26/24at 13:55; Start 07/26/24 at 12:30; Stop 07/26/24 at 12:31; Status DC Gabapentin 300 mg DAILY PO Last administered on 07/28/24at 09:39; Start 07/27/24 at 09:00; Stop 08/26/24 at 08:59 Gabapentin 600 mg HS PO Last administered on 07/27/24at 21:30; Start 07/26/24 at 21:00; Stop 08/25/24 at 20:59 Home Med (Linaclotide (Linzess) 145 MCG) Q3D PO; Start 07/26/24 at 13:00; Stop 08/25/24 at 12:59 Levofloxacin 500 mg DAILY PO Last administered on 07/27/24at 09:08; Start 07/27/24 at 09:00; Stop 07/27/24 at 12:56; Status DC Piperacillin Sod/ Tazobactam Sod 3.375 gm Q8H IV Last administered on 07/28/24at 14:48; Start 07/27/24 at 13:00; Stop 08/06/24 at 12:59 REMI HALE Jr. Jul 28, 2024 15:20
--- NOTE | 2024-07-28 16:30 | NUR ---
BLOOD GLUCOSE AT 160. NO INSULIN COVERAGE NEEDED AT THIS TIME.
[2024-07-28] MEDS ORDERED: GADOTERATE MEGLUMINE 10 MMOL/20 ML VIAL IV ONE (16:39)
--- NOTE | 2024-07-28 21:36 | PN ---
[facility] PROGRESS NOTE Date of Service: Jul 28, 2024 Time of Service: 21:34 SUBJECTIVE: [ ] 07/23/24 patient is seen and examined and case discussed with RN No overnight events labs have been reviewed. Continue current care 07/24/24 Postop day nine after excision of decubitus ulcer and primary closure. Patient was seen and examined and case discussed with the RN. He continues to do well and denies any excessive pain. No nausea vomiting fever or chills 07/25/14 Postop day nine after excision of decubitus ulcer and primary closure. Patient was seen and examined and case discussed with the RN. Medically stable and can be discharged when placement secured per surgery 07/26/24 Postop day TEN after excision of decubitus ulcer and primary closure. Patient was seen and examined and case discussed with the RN. Medically stable and can be discharged when placement secured per surgery/examined wound on the back with good color and minimal drainage/JPD in place/surgery to reeval/Follow cultures and ID consulted due to pseudomonas 07/27/24 Postop day 11 after excision of decubitus ulcer and primary closure. Patient was seen and examined and case discussed with the RN. Medically stable and can be discharged when placement secured per surgery Wound Care consulted and evaluating wound making no recommendations for wound VAC due to proximity to anus and high likelihood of contamination JAMARI drain removed yesterday Recommendations made for wet-to-dry with a Vashe daily 07/28/24 Postop day 12 after excision of decubitus ulcer and primary closure. Patient was seen and examined and case discussed with the RN. Medically stable and can be discharged when placement secured per surgery Wound Care consulted and evaluating wound making no recommendations for wound VAC due to proximity to anus and high likelihood of contamination JAMARI drain removed Recommendations made for wet-to-dry with a Vashe daily On Zosyn MRI pelvis to r/o osteomyelitis REVIEW OF SYSTEMS CONSTITUTIONAL: Denies fevers, chills, or night sweats. No unintentional weight loss reported. NEUROLOGICAL: Patient is bedbound,paraplegic to both lower extremities and complained of left arm pain and swollen Denies headache, ENT: No hearing loss, otalgia, otorrhea, rhinitis, rhinorrhea, hoarseness, or sore throat. CARDIOVASCULAR: Denies any exertional angina, dyspnea on exertion, orthopnea, paroxysmal nocturnal dyspnea, palpitations, life-threatening arrhythmias, cl audication. PULMONARY: Denies any shortness of breath, cough, phlegm/sputum, hemoptysis, pleuritic chest pain. SLEEP: Denies morning headaches, daytime somnolence or napping. Denies difficulty falling asleep, staying asleep, waking from sleep. Denies knowledge of snoring. GASTROINTESTINAL: Denies any type of dysphagia to either liquids or solids. Denies nausea, vomiting, pyrosis, early satiety, abdominal pain, diarrhea, const ipation, or changes in stool consistency or caliber. Denies coffee-ground emesis, hematemesis, hematochezia, or melanotic stools. GENITOURINARY: Denies frequency, urgency, nocturia, hematuria and dysuria ENDOCRINOLOGIC: Denies polyuria, polydipsia, polyphagia or heat/cold intolerances. HEMATOLOGIC: Denies thrombophilia/previous clots, or coagulopathy/bleeding disorders. ONCOLOGIC: Denies personal history of malignancy. DERMATOLOGIC:Non healing sacral ulcer S/P debridement with JAMARI in place. PSYCHIATRIC: Denies any suicidal or homicidal ideation. Denies hallucinations. PHYSICAL EXAM GENERAL APPEARANCE: The patient is awake, alert, and oriented, in no acute cardiopulmonary distress. NEUROLOGICAL: paraplegic to both lower extremities.left arm contracted and both lower extremities HEENT: Face is symmetric. Pupils are equal and reactive. Extraocular movements are intact. NECK: Supple. No JVD. No thyromegaly. No submental, submandibular, pre- /postauricular, occipital or supraclavicular lymphadenopathy. CHEST: Normal chest expansion. No Telemetry. LUNGS: Absence of any rales, rhonchi or any wheezing. CARDIOVASCULAR: Regular. S1 and S2 normal. No appreciable rubs, murmurs or gallops. ABDOMEN: Soft, nontender, and nondistended. There is no rebound, voluntary guarding, or rigidity. : Deferred. Lowery. EXTREMITIES: Good capillary refill.Both hands swollen and left armn swollen as well SKIN: Surgical incision to sacral area S/P debridement and skin flap with JAMARI drain placement .Redness to both hands Vital Signs (last 8hr) Date Time Temp Pulse Resp B/P (MAP) Pulse Ox O2 Delivery O2 Flow Rate FiO2 07/28/24 20:00 97.7 68 18 123/61 98 Room Air LABS: Laboratory: Test 1/23/25 19:18 07/28/24 11:00 Range/Units Whole Blood Glucose 225 H 70-110 MG/DL Bedside Glucose Comment Notified Nurse Current Medications Medications (Trade) Dose Ordered Sig/Luz Maria Route PRN Reason Start Time Stop Time Status Last Admin Dose Admin Acetaminophen (TYLenol 325MG TAB) 650 mg Q6H PRN PO MILD PAIN (1-3) 07/15/24 19:30 08/14/24 19:29 07/24/24 19:52 650 MG Amlodipine Besylate (NorvASC 5MG TAB) 5 mg DAILY PO 07/16/24 09:00 08/15/24 08:59 07/28/24 09:39 5 MG Bisacodyl (DulcoLAX) 10 mg DAILY PRN RC CONSTIPATION 07/17/24 11:00 08/16/24 10:59 07/26/24 16:48 10 MG Dextrose (D50w) 50 ml AD PRN IV HYPOGLYCEMIA PROTOCOL 07/22/24 21:00 08/21/24 20:59 Docusate Sodium (COLace 100MG CAP) 100 mg BID PO 07/15/24 21:00 08/14/24 20:59 07/28/24 21:03 100 MG Ferrous Sulfate (Ferrous Sulfate) 325 mg DAILY PO 07/25/24 12:30 08/24/24 12:29 07/28/24 09:39 325 MG Gabapentin (NEURontin 300 MG CAP) 300 mg DAILY PO 07/27/24 09:00 08/26/24 08:59 07/28/24 09:39 300 MG Gabapentin (NEURontin 300 MG CAP) 600 mg HS PO 07/26/24 21:00 08/25/24 20:59 07/28/24 21:03 600 MG Glucagon (Glucagon 1mg Kit) 1 mg AD PRN IM HYPOGLYCEMIA PROTOCOL 07/22/24 21:00 08/21/24 20:59 Heparin Sodium (Porcine) (HEParin 5,000 UNIT VIAL) 5,000 unit Q12H SQ 07/22/24 23:00 08/21/24 22:59 07/28/24 17:50 5,000 UNIT Home Med (Home Medication) (Linaclotide (Linzess) 145 MCG) Q3D PO 07/26/24 13:00 08/25/24 12:59 Home Med (Home Medication) (linzess 290 MCG) DAILYPRN PRN PO CONSTIPATION 07/17/24 12:30 08/16/24 12:29 07/18/24 11:39 1 EACH Hydrochlorothiazide (hydroCHLOROthiazide 25MG) 25 mg DAILY PO 07/16/24 09:00 08/15/24 08:59 07/28/24 09:39 25 MG Insulin Human Regular (humuLIN R 100 UNIT/ML 3ML) INSULIN SLIDING SCAL... ACHS SQ 07/22/24 21:00 08/21/24 20:59 07/28/24 21:04 3 UNIT Lactulose (Constulose 20gm/ 30ml Udcup) 20 gm BID PRN PO CONSTIPATION 07/17/24 11:00 08/16/24 10:59 07/26/24 13:55 20 GM Levofloxacin (LEvaquIN 500MG TAB) 250 mg DAILY PO 07/27/24 09:00 07/26/24 14:00 DC Levofloxacin (LEvaquIN 500MG TAB) 500 mg DAILY PO 07/27/24 09:00 07/27/24 12:56 DC 07/27/24 09:08 500 MG Losartan Potassium (CozAAR 100MG TAB) 100 mg DAILY PO 07/16/24 09:00 08/15/24 08:59 07/28/24 09:39 100 MG Magnesium Sulfate 50 ml @ 0 mls/hr PROTOCOL PRN IV OTHER [SEE ORDER COMMENTS] 07/22/24 21:00 08/21/24 20:59 Metformin HCl (glucoPHAGE) 500 mg DAILYDINNER PO 07/16/24 17:00 07/25/24 10:07 DC 07/22/24 18:42 500 MG Miscellaneous Medication (Losartan/ Hydrochlorothiazide (Losartan-Hctz 100-25 mg Tab)) 1 tab DAILY PO 07/16/24 09:00 08/15/24 08:59 UNV Piperacillin Sod/ Tazobactam Sod (Zosyn 3.375gm+NS 50ml) 3.375 gm Q8H IV 07/21/24 17:00 07/23/24 16:59 DC 07/23/24 09:55 3.375 GM Piperacillin Sod/ Tazobactam Sod (Zosyn 3.375gm+NS 50ml) 3.375 gm Q8H IV 07/27/24 13:00 08/06/24 12:59 07/28/24 21:04 3.375 GM Potassium Chloride 100 ml @ 100 mls/hr AD PRN IV POTASSIUM PROTOCOL 07/22/24 21:00 08/21/24 20:59 Potassium Chloride (K-Dur/Klor-Con 20meq) 20 meq AD PRN PO POTASSIUM PROTOCOL 07/22/24 21:00 08/21/24 20:59 Potassium Chloride (KCl 10% Elixir 20meq/15ml) 20 meq AD PRN PO POTASSIUM PROTOCOL 07/22/24 21:00 08/21/24 20:59 Sennosides (Senna) 3 tab DAILY PRN PO CONSTIPATION 07/17/24 11:00 08/16/24 10:59 07/26/24 08:27 3 TAB DIAGNOSTICS / RADIOLOGY: [ ] ASSESSMENT: Non healing sacral ulcer S/P debridement and skin advancement flaps for closure with JAMARI drain placement on 07/15/2024 performed by Acute anemia POA Hyponatremia POA Uncontrolled Diabetes POA Neurogenic bladder POA Left arm pain POA Incomplete paraphlegia POA PLAN: Will continue to admit patient in medical surgical floor Will continue IV Antibiotic Will start on consistent carb diet Will check blood sugar AC and HS and start on insulin sliding scale with hypoglycemia protocol Will replace electytrolytes as needed per protocol Will check labs in am Continue admission orders per primary Further recommendations to follow depending upon hospitalization course Case discussed with the attending MD and came up with the above treatment and plan of care RESHMA OROZCO MD Jul 28, 2024 21:36
[2024-07-29] VITALS (7 sets, daily range): BP systolic 90–134; BP diastolic 39–66; PULSE 60–73; RESP 17–18; TEMP 97.5–98.2; O2SAT 98
--- NOTE | 2024-07-29 11:34 | HMCIMG ---
MR PELVIS W/WO CON HISTORY: Sacral bone osteomyelitis COMPARISON: None TECHNIQUE: MRI of the pelvis was performed utilizing multiple pulse sequences in axial, coronal and sagittal planes. Patient was given Clariscan through intravenous route. FINDINGS: No abnormal signal intensity or enhancement is seen of the visualized bony structure to suggest osteomyelitis. Extensive soft tissue swelling is noted within the subcutaneous portion of the buttock near midline measuring 7 cm in longitudinal dimension and 1.3 cm in transverse dimension with surrounding enhancement. Subcutaneous abscess cannot be excluded. Bladder is poorly distended. Bladder wall is thick measuring 16 mm. IMPRESSION: 1. Poorly distended bladder. Bladder wall thickening. Subcutaneous cellulitis in the buttock at midline with possible subcutaneous abscess. No definite MR evidence of osteomyelitis is seen.
--- NOTE | 2024-07-29 15:53 | PN ---
Interval history: This 78-year-old male seen room resting MRI imaging reviewed and concerns for possible subcutaneous abscess but no osteomyelitis noted Patient continues with IV fluids and IV antibiotics Currently pending placement [facility] facility. No other acute events reported at this time Physical exam General: Awake alert and oriented Heart: Regular rate and rhythm} Lungs: Clear to auscultation no distress Abdomen: [Soft, nontender, nondistended Sutures in place no significant induration Assessment : This is an 78-year-old male status post excisional debridement of sacral ulcer Plan: Dressing to be kept dry after Vashe Continue to monitor patient closely No immediate surgical intervention at this time Potential repeat imaging over the weekend to evaluate for if abscess versus previous JAMARI drainage site present Vitals/Labs Vital Signs Date Time Temp Pulse Resp B/P (MAP) Pulse Ox O2 Delivery O2 Flow Rate FiO2 07/29/24 15:28 97.7 60 18 113/54 100 Room Air 07/28/24 20:00 0 21 Medications Current Medications Cefazolin Sodium 2 gm STK-MED ONCE .ROUTE; Start 07/15/24 at 07:43; Stop 07/15/24 at 07:49; Status DC Sodium Chloride 1,000 ml @ As Directed STK-MED ONCE IV; Start 07/15/24 at 07:43; Stop 07/15/24 at 07:49; Status DC Cefazolin Sodium 2 gm STK-MED ONCE .ROUTE; Start 07/15/24 at 07:44; Stop 07/15/24 at 07:49; Status DC Sodium Chloride 1,000 ml @ As Directed STK-MED ONCE IV Last administered on 07/15/24at 09:08; Start 07/15/24 at 07:44; Stop 07/15/24 at 07:49; Status DC Lidocaine HCl 100 mg STK-MED ONCE .ROUTE; Start 07/15/24 at 10:15; Stop 07/15/24 at 10:15; Status DC Dexamethasone Sodium Phosphate 4 mg STK-MED ONCE .ROUTE; Start 07/15/24 at 10:15; Stop 07/15/24 at 10:15; Status DC Ondansetron HCl 4 mg STK-MED ONCE .ROUTE; Start 07/15/24 at 10:15; Stop 07/15/24 at 10:15; Status DC Propofol 200 mg STK-MED ONCE IV; Start 07/15/24 at 10:15; Stop 07/15/24 at 10:16; Status DC Rocuronium [place] 50 mg STK-MED ONCE .ROUTE; Start 07/15/24 at 10:16; Stop 07/15/24 at 10:16; Status DC Fentanyl Citrate 100 mcg STK-MED ONCE .ROUTE; Start 07/15/24 at 10:16; Stop 07/15/24 at 10:16; Status DC Cefazolin Sodium 2 gm STK-MED ONCE IVPB Last administered on 07/15/24at 10:31; Start 07/15/24 at 10:31; Stop 07/15/24 at 11:12; Status DC Glycopyrrolate 1 mg STK-MED ONCE .ROUTE; Start 07/15/24 at 11:32; Stop 07/15/24 at 11:32; Status DC Neostigmine Methylsulfate 10 mg STK-MED ONCE IV; Start 07/15/24 at 11:32; Stop 07/15/24 at 11:32; Status DC Acetaminophen 650 mg Q6H PRN PO Last administered on 07/24/24at 19:52; Start 07/15/24 at 19:30; Stop 08/14/24 at 19:29 Docusate Sodium 100 mg BID PO Last administered on 07/29/24at 10:24; Start 07/15/24 at 21:00; Stop 08/14/24 at 20:59 Metformin HCl 500 mg DAILYDINNER PO Last administered on 07/22/24at 18:42; Start 07/16/24 at 17:00; Stop 07/25/24 at 10:07; Status DC Miscellaneous Medication 1 tab DAILY PO; Start 07/16/24 at 09:00; Stop 08/15/24 at 08:59; Status UNV Amlodipine Besylate 5 mg DAILY PO Last administered on 07/28/24at 09:39; Start 07/16/24 at 09:00; Stop 08/15/24 at 08:59 Losartan Potassium 100 mg DAILY PO Last administered on 07/28/24at 09:39; Start 07/16/24 at 09:00; Stop 08/15/24 at 08:59 Hydrochlorothiazide 25 mg DAILY PO Last administered on 07/28/24at 09:39; Start 07/16/24 at 09:00; Stop 08/15/24 at 08:59 Sennosides 3 tab DAILY PRN PO Last administered on 07/26/24at 08:27; Start 07/17/24 at 11:00; Stop 08/16/24 at 10:59 Lactulose 20 gm BID PRN PO Last administered on 07/26/24at 13:55; Start 07/17/24 at 11:00; Stop 08/16/24 at 10:59 Bisacodyl 10 mg DAILY PRN RC Last administered on 07/26/24at 16:48; Start at 11:00; Stop 08/16/24 at 10:59 Home Med (linzess 290 MCG) DAILYPRN PRN PO Last administered on 07/18/24at 11:39; Start 07/17/24 at 12:30; Stop 08/16/24 at 12:29 Piperacillin Sod/ Tazobactam Sod 3.375 gm Q8H IV Last administered on 07/23/24at 09:55; Start 07/21/24 at 17:00; Stop 07/23/24 at 16:59; Status DC Tramadol HCl 50 mg ONCE ONCE PO Last administered on 07/22/24at 21:07; Start 07/22/24 at 20:00; Stop 07/22/24 at 20:01; Status DC Insulin Human Regular INSULIN SLIDING SCAL... ACHS SQ Last administered on 07/28/24at 21:04; Start 07/22/24 at 21:00; Stop 08/21/24 at 20:59 Dextrose 50 ml AD PRN IV; Start 07/22/24 at 21:00; Stop 08/21/24 at 20:59 Glucagon 1 mg AD PRN IM; Start 07/22/24 at 21:00; Stop 08/21/24 at 20:59 Potassium Chloride 100 ml @ 100 mls/hr AD PRN IV; Start 07/22/24 at 21:00; Stop 08/21/24 at 20:59 Potassium Chloride 20 meq AD PRN PO; Start 07/22/24 at 21:00; Stop 08/21/24 at 20:59 Potassium Chloride 20 meq AD PRN PO; Start 07/22/24 at 21:00; Stop 08/21/24 at 20:59 Magnesium Sulfate 50 ml @ 0 mls/hr PROTOCOL PRN IV; Start 07/22/24 at 21:00; Stop 08/21/24 at 20:59 Acetaminophen/ Hydrocodone Bitart 2 tab ONCE ONCE PO Last administered on 07/22/24at 22:42; Start 07/22/24 at 23:00; Stop 07/22/24 at 23:01; Status DC Heparin Sodium (Porcine) 5,000 unit Q12H SQ Last administered on 07/29/24at 10:46; Start 07/22/24 at 23:00; Stop 08/21/24 at 22:59 Ferrous Sulfate 325 mg DAILY PO Last administered on 07/29/24at 10:23; Start 07/25/24 at 12:30; Stop 08/24/24 at 12:29 Levofloxacin 500 mg ONCE ONCE PO; Start 07/25/24 at 12:30; Stop 07/26/24 at 12:08; Status DC Levofloxacin 250 mg DAILY PO; Start 07/27/24 at 09:00; Stop 07/26/24 at 14:00; Status DC Levofloxacin 500 mg ONCE ONCE PO Last administered on 07/26/24at 13:55; Start 07/26/24 at 12:30; Stop 07/26/24 at 12:31; Status DC Gabapentin 300 mg DAILY PO Last administered on 07/29/24at 10:23; Start 07/27/24 at 09:00; Stop 08/26/24 at 08:59 Gabapentin 600 mg HS PO Last administered on 07/28/24at 21:03; Start 07/26/24 at 21:00; Stop 08/25/24 at 20:59 Home Med (Linaclotide (Linzess) 145 MCG) Q3D PO; Start 07/26/24 at 13:00; Stop 08/25/24 at 12:59 Levofloxacin 500 mg DAILY PO Last administered on 07/27/24at 09:08; Start 07/27/24 at 09:00; Stop 07/27/24 at 12:56; Status DC Piperacillin Sod/ Tazobactam Sod 3.375 gm Q8H IV Last administered on 07/29/24at 15:02; Start 07/27/24 at 13:00; Stop 08/06/24 at 12:59 Gadoterate Meglumine 10 mmol STK-MED ONCE IV; Start 07/28/24 at 16:39; Stop 07/28/24 at 16:39; Status DC REMI HALE Jr. ENEIDA Jul 29, 2024 15:53
--- NOTE | 2024-07-29 18:15 | PN ---
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 Patient was seen and examined at bedside in room 418. Patient is status post excisional debridement and skin flap placement for closure on 07/15/2024. Patient with polymicrobial wound infection. Continues on Zosyn IV every 8 hours. An MRI of the pelvis was obtained which showed a possible subcutaneous abscess in the buttocks at midline but no osteomyelitis. Nursing to inform general surgery. Patient remains afebrile, temperature is 98.1. We will continue to follow patient's care. PHYSICAL EXAM EYES: Anicteric. Pupils equal and reactive. HENT: No oral thrush seen, moist Oral mucosa. NECK: Supple, no JVD or thyromegaly. LUNGS: Good air entry. No rales, no rhonchi. CARDIOVASCULAR: S1, S2 regular. No murmur heard. ABDOMEN: Soft, non tender, bowel sounds present, no organomegaly. CENTRAL NERVOUS SYSTEM: Awake, alert, oriented x 3. SKIN: No rashes, no swelling. LYMPHATICS: No peripheral lymphadenopathy. MUSCULOSKELETAL: No joint swelling, erythema or tenderness. EXTREMITIES: No cyanosis or clubbing. Paraplegia to lower extremities. BACK: No deformity, no pressure ulcer. Sacrococcygeal wound. GENITOURINARY: No dysuria or hematuria. Lowery catheter. Vital Sign (Last 12 Hours) 07/29/24 07/29/24 07/29/24 07:33 11:12 15:28 Temp 97.5 98.1 97.7 Pulse 68 67 60 Resp 18 17 18 B/P (MAP) 90/40 100/39 113/54 Pulse Ox 98 99 100 O2 Delivery Room Air Room Air Room Air Intake & Output (last 24hrs) 07/28/24 07/28/24 07/29/24 15:00 23:00 07:00 Intake Total 1200 ml 300 ml Output Total 800 ml 500 ml Balance 400 ml -200 ml LABS: Laboratory: Test 07/29/24 15:15 07/29/24 05:07 Range/Units Whole Blood Glucose 181 H 70-110 MG/DL Bedside Glucose Comment Notified Nurse ASSESSMENT: Sepsis. Sacrococcygeal ulcer, status post debridement and flap placement on 07/15/2024. Wound with Polymicrobial infection. Possible midline buttocks Subcutaneous abscess on the MRI. Diabetes mellitus. Paraplegia of lower extremities. PLAN: Continue Zosyn IV. Continue wound care as recommended by the wound care team. Continue pain management. General surgeon following patient. Continue monitoring glucose levels. We will monitor electrolytes. This case was reviewed and discussed with my supervising physician and the above assessment and plan was formulated and agreed upon. ATTESTATION BY PHYSICIAN I have seen and examined the patient. I reviewed the documentation, medical decision making, and treatment plan as noted by the mid-level provider above. I agree with the findings and plan of care. LORENZO WILSON MD, [facility] Jul 29, 2024 18:15
--- NOTE | 2024-07-29 21:05 | NUR ---
DRESSING CHANGED SACRAL DRESSING, WOUND WITH STITCHES , OPEN WOUND NEAR ANUS, NO DRAINAGE NOTED AT THIS TIME, CLEANSED WITH VASHE, PAT DRY, APPLY 4X4 AND HYPAFIX , TOLERATED WELL
--- NOTE | 2024-07-29 21:59 | PN ---
[facility] PROGRESS NOTE Date of Service: Jul 29, 2024 Time of Service: 21:57 SUBJECTIVE: [ ] 07/23/24 patient is seen and examined and case discussed with RN No overnight events labs have been reviewed. Continue current care 07/24/24 Postop day nine after excision of decubitus ulcer and primary closure. Patient was seen and examined and case discussed with the RN. He continues to do well and denies any excessive pain. No nausea vomiting fever or chills 07/25/14 Postop day nine after excision of decubitus ulcer and primary closure. Patient was seen and examined and case discussed with the RN. Medically stable and can be discharged when placement secured per surgery 07/26/24 Postop day TEN after excision of decubitus ulcer and primary closure. Patient was seen and examined and case discussed with the RN. Medically stable and can be discharged when placement secured per surgery/examined wound on the back with good color and minimal drainage/JPD in place/surgery to reeval/Follow cultures and ID consulted due to pseudomonas 07/27/24 Postop day 11 after excision of decubitus ulcer and primary closure. Patient was seen and examined and case discussed with the RN. Medically stable and can be discharged when placement secured per surgery Wound Care consulted and evaluating wound making no recommendations for wound VAC due to proximity to anus and high likelihood of contamination JAMARI drain removed yesterday Recommendations made for wet-to-dry with a Vashe daily 07/28/24 Postop day 12 after excision of decubitus ulcer and primary closure. Patient was seen and examined and case discussed with the RN. Medically stable and can be discharged when placement secured per surgery Wound Care consulted and evaluating wound making no recommendations for wound VAC due to proximity to anus and high likelihood of contamination JAMARI drain removed Recommendations made for wet-to-dry with a Vashe daily On Zosyn MRI pelvis to r/o osteomyelitis Postop day 12 after excision of decubitus ulcer and primary closure. Patient was seen and examined and case discussed with the RN. Medically stable and can be discharged when placement secured per surgery Wound Care consulted and evaluating wound making no recommendations for wound VAC due to proximity to anus and high likelihood of contamination JAMARI drain removed Recommendations made for wet-to-dry with a Vashe daily On Zosyn MRI reviewed with no osteomyelitis but possible subcutaneous abscess. Suregry with no plans for intervention and recommend continuing antibiotics and wound care REVIEW OF SYSTEMS CONSTITUTIONAL: Denies fevers, chills, or night sweats. No unintentional weight loss reported. NEUROLOGICAL: Patient is bedbound,paraplegic to both lower extremities and complained of left arm pain and swollen Denies headache, ENT: No hearing loss, otalgia, otorrhea, rhinitis, rhinorrhea, hoarseness, or sore throat. CARDIOVASCULAR: Denies any exertional angina, dyspnea on exertion, orthopnea, paroxysmal nocturnal dyspnea, palpitations, life-threatening arrhythmias, claudication. PULMONARY: Denies any shortness of breath, cough, phlegm/sputum, hemoptysis, pleuritic chest pain. SLEEP: Denies morning headaches, daytime somnolence or napping. Denies difficulty falling asleep, staying asleep, waking from sleep. Denies knowledge of snoring. GASTROINTESTINAL: Denies any type of dysphagia to either liquids or solids. Denies nausea, vomiting, pyrosis, early satiety, abdominal pain, diarrhea, constipation, or changes in stool consistency or caliber. Denies coffee-ground emesis, hematemesis, hematochezia, or melanotic stools. GENITOURINARY: Denies frequency, urgency, nocturia, hematuria and dysuria ENDOCRINOLOGIC: Denies polyuria, polydipsia, polyphagia or heat/cold intolerances. HEMATOLOGIC: Denies thrombophilia/previous clots, or coagulopathy/bleeding disorders. ONCOLOGIC: Denies personal history of malignancy. DERMATOLOGIC:Non healing sacral ulcer S/P debridement with JAMARI in place. PSYCHIATRIC: Denies any suicidal or homicidal ideation. Denies hallucinations. PHYSICAL EXAM GENERAL APPEARANCE: The patient is awake, alert, and oriented, in no acute cardiopulmonary distress. NEUROLOGICAL: paraplegic to both lower extremities.left arm contracted and both lower extremities HEENT: Face is symmetric. Pupils are equal and reactive. Extraocular movements are intact. NECK: Supple. No JVD. No thyromegaly. No submental, submandibular, pre- /postauricular, occipital or supraclavicular lymphadenopathy. CHEST: Normal chest expansion. No Telemetry. LUNGS: Absence of any rales, rhonchi or any wheezing. CARDIOVASCULAR: Regular. S1 and S2 normal. No appreciable rubs, murmurs or gallops. ABDOMEN: Soft, nontender, and nondistended. There is no rebound, voluntary guarding, or rigidity. : Deferred. Lowery. EXTREMITIES: Good capillary refill.Both hands swollen and left armn swollen as well SKIN: Surgical incision to sacral area S/P debridement and skin flap with JAMARI drain placement .Redness to both hands Vital Signs (last 8hr) Date Time Temp Pulse Resp B/P (MAP) Pulse Ox O2 Delivery O2 Flow Rate FiO2 07/29/24 20:26 97.9 66 18 134/58 98 Room Air 07/29/24 15:28 97.7 60 18 113/54 100 Room Air LABS: Laboratory: Test 07/29/24 19:44 Range/Units Whole Blood Glucose 209 H 70-110 MG/DL Bedside Glucose Comment Notified Nurse Current Medications Medications (Trade) Dose Ordered Sig/Luz Maria Route PRN Reason Start Time Stop Time Status Last Admin Dose Admin Acetaminophen (TYLenol 325MG TAB) 650 mg Q6H PRN PO MILD PAIN (1-3) 07/15/24 19:30 08/14/24 19:29 07/24/24 19:52 650 MG Amlodipine Besylate (NorvASC 5MG TAB) 5 mg DAILY PO 07/16/24 09:00 08/15/24 08:59 07/28/24 09:39 5 MG Bisacodyl (DulcoLAX) 10 mg DAILY PRN RC CONSTIPATION 07/17/24 11:00 08/16/24 10:59 07/26/24 16:48 10 MG Dextrose (D50w) 50 ml AD PRN IV HYPOGLYCEMIA PROTOCOL 07/22/24 21:00 08/21/24 20:59 Docusate Sodium (COLace 100MG CAP) 100 mg BID PO 07/15/24 21:00 08/14/24 20:59 07/29/24 20:21 100 MG Ferrous Sulfate (Ferrous Sulfate) 325 mg DAILY PO 07/25/24 12:30 08/24/24 12:29 07/29/24 10:23 325 MG Gabapentin (NEURontin 300 MG CAP) 300 mg DAILY PO 07/27/24 09:00 08/26/24 08:59 07/29/24 10:23 300 MG Gabapentin (NEURontin 300 MG CAP) 600 mg HS PO 07/26/24 21:00 08/25/24 20:59 07/29/24 20:21 600 MG Glucagon (Glucagon 1mg Kit) 1 mg AD PRN IM HYPOGLYCEMIA PROTOCOL 07/22/24 21:00 08/21/24 20:59 Heparin Sodium (Porcine) (HEParin 5,000 UNIT VIAL) 5,000 unit Q12H SQ 07/22/24 23:00 08/21/24 22:59 07/29/24 10:46 5,000 UNIT Home Med (Home Medication) (Linaclotide (Linzess) 145 MCG) Q3D PO 07/26/24 13:00 08/25/24 12:59 Home Med (Home Medication) (linzess 290 MCG) DAILYPRN PRN PO CONSTIPATION 07/17/24 12:30 08/16/24 12:29 07/18/24 11:39 1 EACH Hydrochlorothiazide (hydroCHLOROthiazide 25MG) 25 mg DAILY PO 07/16/24 09:00 08/15/24 08:59 07/28/24 09:39 25 MG Insulin Human Regular (humuLIN R 100 UNIT/ML 3ML) INSULIN SLIDING SCAL... ACHS SQ 07/22/24 21:00 08/21/24 20:59 07/29/24 20:24 3 UNIT Lactulose (Constulose 20gm/ 30ml Udcup) 20 gm BID PRN PO CONSTIPATION 07/17/24 11:00 08/16/24 10:59 07/26/24 13:55 20 GM Levofloxacin (LEvaquIN 500MG TAB) 250 mg DAILY PO 07/27/24 09:00 07/26/24 14:00 DC Levofloxacin (LEvaquIN 500MG TAB) 500 mg DAILY PO 07/27/24 09:00 07/27/24 12:56 DC 07/27/24 09:08 500 MG Losartan Potassium (CozAAR 100MG TAB) 100 mg DAILY PO 07/16/24 09:00 08/15/24 08:59 07/28/24 09:39 100 MG Magnesium Sulfate 50 ml @ 0 mls/hr PROTOCOL PRN IV OTHER [SEE ORDER COMMENTS] 07/22/24 21:00 08/21/24 20:59 Metformin HCl (glucoPHAGE) 500 mg DAILYDINNER PO 07/16/24 17:00 07/25/24 10:07 DC 07/22/24 18:42 500 MG Miscellaneous Medication (Losartan/ Hydrochlorothiazide (Losartan-Hctz 100-25 mg Tab)) 1 tab DAILY PO 07/16/24 09:00 08/15/24 08:59 UNV Piperacillin Sod/ Tazobactam Sod (Zosyn 3.375gm+NS 50ml) 3.375 gm Q8H IV 07/21/24 17:00 07/23/24 16:59 DC 07/23/24 09:55 3.375 GM Piperacillin Sod/ Tazobactam Sod (Zosyn 3.375gm+NS 50ml) 3.375 gm Q8H IV 07/27/24 13:00 07/29/24 20:00 DC 07/29/24 15:02 3.375 GM Piperacillin Sod/ Tazobactam Sod (Zosyn 3.375gm+NS 50ml) 3.375 gm Q8H IV 07/30/24 00:00 08/09/24 00:00 Potassium Chloride 100 ml @ 100 mls/hr AD PRN IV POTASSIUM PROTOCOL 07/22/24 21:00 08/21/24 20:59 Potassium Chloride (K-Dur/Klor-Con 20meq) 20 meq AD PRN PO POTASSIUM PROTOCOL 07/22/24 21:00 08/21/24 20:59 Potassium Chloride (KCl 10% Elixir 20meq/15ml) 20 meq AD PRN PO POTASSIUM PROTOCOL 07/22/24 21:00 08/21/24 20:59 Sennosides (Senna) 3 tab DAILY PRN PO CONSTIPATION 07/17/24 11:00 08/16/24 10:59 07/26/24 08:27 3 TAB DIAGNOSTICS / RADIOLOGY: [ ] ASSESSMENT: Non healing sacral ulcer S/P debridement and skin advancement flaps for closure with JAMARI drain placement on 07/15/2024 performed by Acute anemia POA Hyponatremia POA Uncontrolled Diabetes POA Neurogenic bladder POA Left arm pain POA Incomplete paraphlegia POA PLAN: Will continue to admit patient in medical surgical floor Will continue IV Antibiotic Will start on consistent carb diet Will check blood sugar AC and HS and start on insulin sliding scale with hypoglycemia protocol Will replace electytrolytes as needed per protocol Will check labs in am Continue admission orders per primary Further recommendations to follow depending upon hospitalization course Case discussed with the attending MD and came up with the above treatment and plan of care RESHMA OROZCO MD Jul 29, 2024 21:59
[2024-07-29] MEDS: ZOSYN 3.375GM +NS 50ML IV SCH (23:16)
[2024-07-30 04:03] VITALS: BP 103/52; PULSE 63; RESP 20; TEMP 98
[2024-07-30 08:00] VITALS: O2SAT 96
[2024-07-30 08:13] VITALS: BP 130/93; PULSE 61; RESP 19; TEMP 98
--- NOTE | 2024-07-30 08:39 | PN ---
This is an 78-year-old male status post sharp excisional debridement with skin flap closure Interval history This 78-year-old male seen in his room resting Nursing has performed wound care and no significant purulent drainage at this time White count 5.1 with a hemoglobin of 9.7 Patient continues with ID recommendations Still pending acceptance into intermediate facility Surgical team to follow patient closely continue to appreciate input from ID team Vitals/Labs Vital Signs Date Time Temp Pulse Resp B/P (MAP) Pulse Ox O2 Delivery O2 Flow Rate FiO2 07/30/24 08:13 98.1 61 19 130/93 95 Room Air 07/29/24 20:00 0 21 Medications Current Medications Cefazolin Sodium 2 gm STK-MED ONCE .ROUTE; Start 07/15/24 at 07:43; Stop 07/15/24 at 07:49; Status DC Sodium Chloride 1,000 ml @ As Directed STK-MED ONCE IV; Start 07/15/24 at 07:43; Stop 07/15/24 at 07:49; Status DC Cefazolin Sodium 2 gm STK-MED ONCE .ROUTE; Start 07/15/24 at 07:44; Stop 07/15/24 at 07:49; Status DC Sodium Chloride 1,000 ml @ As Directed STK-MED ONCE IV Last administered on 07/15/24at 09:08; Start 07/15/24 at 07:44; Stop 07/15/24 at 07:49; Status DC Lidocaine HCl 100 mg STK-MED ONCE .ROUTE; Start 07/15/24 at 10:15; Stop 07/15/24 at 10:15; Status DC Dexamethasone Sodium Phosphate 4 mg STK-MED ONCE .ROUTE; Start 07/15/24 at 10:15; Stop 07/15/24 at 10:15; Status DC Ondansetron HCl 4 mg STK-MED ONCE .ROUTE; Start 07/15/24 at 10:15; Stop 07/15/24 at 10:15; Status DC Propofol 200 mg STK-MED ONCE IV; Start 07/15/24 at 10:15; Stop 07/15/24 at 10:16; Status DC Rocuronium [place] 50 mg STK-MED ONCE .ROUTE; Start 07/15/24 at 10:16; Stop 07/15/24 at 10:16; Status DC Fentanyl Citrate 100 mcg STK-MED ONCE .ROUTE; Start 07/15/24 at 10:16; Stop 07/15/24 at 10:16; Status DC Cefazolin Sodium 2 gm STK-MED ONCE IVPB Last administered on 07/15/24at 10:31; Start 07/15/24 at 10:31; Stop 07/15/24 at 11:12; Status DC Glycopyrrolate 1 mg STK-MED ONCE .ROUTE; Start 07/15/24 at 11:32; Stop 07/15/24 at 11:32; Status DC Neostigmine Methylsulfate 10 mg STK-MED ONCE IV; Start 07/15/24 at 11:32; Stop 07/15/24 at 11:32; Status DC Acetaminophen 650 mg Q6H PRN PO Last administered on 07/24/24at 19:52; Start 07/15/24 at 19:30; Stop 08/14/24 at 19:29 Docusate Sodium 100 mg BID PO Last administered on 07/29/24at 20:21; Start 07/15/24 at 21:00; Stop 08/14/24 at 20:59 Metformin HCl 500 mg DAILYDINNER PO Last administered on 07/22/24at 18:42; Start 07/16/24 at 17:00; Stop 07/25/24 at 10:07; Status DC Miscellaneous Medication 1 tab DAILY PO; Start 07/16/24 at 09:00; Stop 08/15/24 at 08:59; Status UNV Amlodipine Besylate 5 mg DAILY PO Last administered on 07/28/24at 09:39; Start 07/16/24 at 09:00; Stop 08/15/24 at 08:59 Losartan Potassium 100 mg DAILY PO Last administered on 07/28/24at 09:39; Start 07/16/24 at 09:00; Stop 08/15/24 at 08:59 Hydrochlorothiazide 25 mg DAILY PO Last administered on 07/28/24at 09:39; Start 07/16/24 at 09:00; Stop 08/15/24 at 08:59 Sennosides 3 tab DAILY PRN PO Last administered on 07/26/24at 08:27; Start 07/17/24 at 11:00; Stop 08/16/24 at 10:59 Lactulose 20 gm BID PRN PO Last administered on 07/26/24at 13:55; Start 07/17/24 at 11:00; Stop 08/16/24 at 10:59 Bisacodyl 10 mg DAILY PRN RC Last administered on 07/26/24at 16:48; Start 06/29 at 11:00; Stop 08/16/24 at 10:59 Home Med (linzess 290 MCG) DAILYPRN PRN PO Last administered on 07/18/24at 11:39; Start 07/17/24 at 12:30; Stop 08/16/24 at 12:29 Piperacillin Sod/ Tazobactam Sod 3.375 gm Q8H IV Last administered on 07/23/24at 09:55; Start 07/21/24 at 17:00; Stop 07/23/24 at 16:59; Status DC Tramadol HCl 50 mg ONCE ONCE PO Last administered on 07/22/24at 21:07; Start 07/22/24 at 20:00; Stop 07/22/24 at 20:01; Status DC Insulin Human Regular INSULIN SLIDING SCAL... ACHS SQ Last administered on 07/29/24at 20:24; Start 07/22/24 at 21:00; Stop 08/21/24 at 20:59 Dextrose 50 ml AD PRN IV; Start 07/22/24 at 21:00; Stop 08/21/24 at 20:59 Glucagon 1 mg AD PRN IM; Start 07/22/24 at 21:00; Stop 08/21/24 at 20:59 Potassium Chloride 100 ml @ 100 mls/hr AD PRN IV; Start 07/22/24 at 21:00; Stop 08/21/24 at 20:59 Potassium Chloride 20 meq AD PRN PO; Start 07/22/24 at 21:00; Stop 08/21/24 at 20:59 Potassium Chloride 20 meq AD PRN PO; Start 07/22/24 at 21:00; Stop 08/21/24 at 20:59 Magnesium Sulfate 50 ml @ 0 mls/hr PROTOCOL PRN IV; Start 07/22/24 at 21:00; Stop 08/21/24 at 20:59 Acetaminophen/ Hydrocodone Bitart 2 tab ONCE ONCE PO Last administered on 07/22/24at 22:42; Start 07/22/24 at 23:00; Stop 07/22/24 at 23:01; Status DC Heparin Sodium (Porcine) 5,000 unit Q12H SQ Last administered on 07/29/24at 23:15; Start 07/22/24 at 23:00; Stop 08/21/24 at 22:59 Ferrous Sulfate 325 mg DAILY PO Last administered on 07/29/24at 10:23; Start 07/25/24 at 12:30; Stop 08/24/24 at 12:29 Levofloxacin 500 mg ONCE ONCE PO; Start 07/25/24 at 12:30; Stop 07/26/24 at 12:08; Status DC Levofloxacin 250 mg DAILY PO; Start 07/27/24 at 09:00; Stop 07/26/24 at 14:00; Status DC Levofloxacin 500 mg ONCE ONCE PO Last administered on 07/26/24at 13:55; Start 07/26/24 at 12:30; Stop 07/26/24 at 12:31; Status DC Gabapentin 300 mg DAILY PO Last administered on 07/29/24at 10:23; Start 07/27/24 at 09:00; Stop 08/26/24 at 08:59 Gabapentin 600 mg HS PO Last administered on 07/29/24at 20:21; Start 07/26/24 at 21:00; Stop 08/25/24 at 20:59 Home Med (Linaclotide (Linzess) 145 MCG) Q3D PO; Start 07/26/24 at 13:00; Stop 08/25/24 at 12:59 Levofloxacin 500 mg DAILY PO Last administered on 07/27/24at 09:08; Start 07/27/24 at 09:00; Stop 07/27/24 at 12:56; Status DC Piperacillin Sod/ Tazobactam Sod 3.375 gm Q8H IV Last administered on 07/29/24at 15:02; Start 07/27/24 at 13:00; Stop 07/29/24 at 20:00; Status DC Gadoterate Meglumine 10 mmol STK-MED ONCE IV; Start 07/28/24 at 16:39; Stop 07/28/24 at 16:39; Status DC Piperacillin Sod/ Tazobactam Sod 3.375 gm Q8H IV Last administered on 07/29/24at 23:16; Start 07/30/24 at 00:00; Stop 08/09/24 at 00:00 REMI HALE Jr. Jul 30, 2024 08:39
[2024-07-30 12:17] VITALS: BP 130/50; PULSE 69; RESP 19; TEMP 97.2
[2024-07-30 12:30] LABS: INR 1.02 (0.85-1.15); PROTHROMBIN TIME 11.4 SEC (9.6-11.6)
--- NOTE | 2024-07-30 15:43 | PN ---
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 Patient was seen and examined at bedside in room 418. Patient is awake, alert and able to answer questions appropriately. Patient is status post excisional debridement and skin flap placement for closure on 07/15/2024. Patient is afebrile, temperature is 97.2 Continues on Zosyn IV for polymicrobial sacral wound infection. Per report case management working on SNF placement. Patient will need long-term IV antibiotics x [address] PICC line. Prescription for Zosyn x 4 weeks was written and given to nurse. We will continue to follow patient's care. PHYSICAL EXAM EYES: Anicteric. Pupils equal and reactive. HENT: No oral thrush seen, moist Oral mucosa. NECK: Supple, no JVD or thyromegaly. LUNGS: Good air entry. No rales, no rhonchi. CARDIOVASCULAR: S1, S2 regular. No murmur heard. ABDOMEN: Soft, non tender, bowel sounds present, no organomegaly. CENTRAL NERVOUS SYSTEM: Awake, alert, oriented x 3. SKIN: No rashes, no swelling. LYMPHATICS: No peripheral lymphadenopathy. MUSCULOSKELETAL: No joint swelling, erythema or tenderness. EXTREMITIES: No cyanosis or clubbing. Paraplegia to lower extremities. BACK: No deformity, no pressure ulcer. Sacrococcygeal nonhealing wound, status post debridement. GENITOURINARY: No dysuria or hematuria. Lowery catheter. Vital Sign (Last 12 Hours) 07/30/24 07/30/24 07/30/24 04:03 08:13 12:17 Temp 98.1 98.1 97.2 Pulse 63 61 69 Resp 20 19 19 B/P (MAP) 103/52 130/93 130/50 Pulse Ox 98 95 96 O2 Delivery Room Air Room Air Nasal Cannula Intake & Output (last 24hrs) 07/29/24 07/29/24 07/30/24 15:00 23:00 07:00 Intake Total 500 ml 300 ml 50.0 ml Balance 500 ml 300 ml 50.0 ml LABS: Laboratory: Test 07/30/24 15:15 07/30/24 12:06 07/30/24 05:06 Range/Units Whole Blood Glucose 261 #H 70-110 MG/DL Prothrombin Time 11.4 9.6-11.6 SEC Prothromb Time International Ratio 1.02 0.85-1.15 Bedside Glucose Comment Notified Nurse ASSESSMENT: Sacrococcygeal ulcer, status post debridement and flap placement on 07/15/2024. Sacrum wound with Polymicrobial infection. Possible midline buttocks Subcutaneous abscess on the MRI. Diabetes mellitus. Paraplegia of lower extremities. Anemia. PLAN: Place PICC line. Prescription for Zosyn x 4 weeks was written and given to nurse. Continue Zosyn IV. Continue wound care as recommended by the wound care team. Continue pain management. Continue monitoring glucose levels. Case management working on SNF placement. This case was reviewed and discussed with my supervising physician and the above assessment and plan was formulated and agreed upon. ATTESTATION BY PHYSICIAN I have seen and examined the patient. I reviewed the documentation, medical decision making, and treatment plan as noted by the mid-level provider above. I agree with the findings and plan of care. LORENZO WILSON MD, [facility] Jul 30, 2024 15:43
[2024-07-30 16:00] VITALS: BP 119/67; PULSE 71; RESP 19; TEMP 97.8
--- NOTE | 2024-07-30 18:26 | HMCIMG ---
INDICATION: piccline placement verification. TECHNIQUE: CHEST 1VW COMPARISON: 07/23/2024 FINDINGS/IMPRESSION: Prominent bilateral interstitial markings which may represent bronchitis or vascular congestion in the proper clinical setting. Left PICC line terminating in the right atrium. The PICC line should be pulled back approximately 4 cm. Cardiac silhouette is within normal limits. Stable osseous structures. The visualized upper abdomen appears unremarkable.
--- NOTE | 2024-07-30 18:45 | PN ---
[facility] PROGRESS NOTE Date of Service: Jul 30, 2024 Time of Service: 18:44 SUBJECTIVE: [ ] 07/23/24 patient is seen and examined and case discussed with RN No overnight events labs have been reviewed. Continue current care 07/24/24 Postop day nine after excision of decubitus ulcer and primary closure. Patient was seen and examined and case discussed with the RN. He continues to do well and denies any excessive pain. No nausea vomiting fever or chills 07/25/14 Postop day nine after excision of decubitus ulcer and primary closure. Patient was seen and examined and case discussed with the RN. Medically stable and can be discharged when placement secured per surgery 07/26/24 Postop day TEN after excision of decubitus ulcer and primary closure. Patient was seen and examined and case discussed with the RN. Medically stable and can be discharged when placement secured per surgery/examined wound on the back with good color and minimal drainage/JPD in place/surgery to reeval/Follow cultures and ID consulted due to pseudomonas 07/27/24 Postop day 11 after excision of decubitus ulcer and primary closure. Patient was seen and examined and case discussed with the RN. Medically stable and can be discharged when placement secured per surgery Wound Care consulted and evaluating wound making no recommendations for wound VAC due to proximity to anus and high likelihood of contamination JAMARI drain removed yesterday Recommendations made for wet-to-dry with a Vashe daily 07/28/24 Postop day 12 after excision of decubitus ulcer and primary closure. Patient was seen and examined and case discussed with the RN. Medically stable and can be discharged when placement secured per surgery Wound Care consulted and evaluating wound making no recommendations for wound VAC due to proximity to anus and high likelihood of contamination JAMARI drain removed Recommendations made for wet-to-dry with a Vashe daily On Zosyn MRI pelvis to r/o osteomyelitis 07/29/24 Postop day 12 after excision of decubitus ulcer and primary closure. Patient was seen and examined and case discussed with the RN. Medically stable and can be discharged when placement secured per surgery Wound Care consulted and evaluating wound making no recommendations for wound VAC due to proximity to anus and high likelihood of contamination JAMARI drain removed Recommendations made for wet-to-dry with a Vashe daily On Zosyn MRI reviewed with no osteomyelitis but possible subcutaneous abscess. Suregry with no plans for intervention and recommend continuing antibiotics and wound care 07/30/24 Postop day 13 after excision of decubitus ulcer and primary closure. Patient was seen and examined and case discussed with the RN. Medically stable and can be discharged when placement secured per surgery Wound Care consulted and evaluating wound making no recommendations for wound VAC due to proximity to anus and high likelihood of contamination JAMARI drain removed Recommendations made for wet-to-dry with a Vashe daily On Zosyn MRI reviewed with no osteomyelitis but possible subcutaneous abscess. Suregry with no plans for intervention and recommend continuing antibiotics and wound care REVIEW OF SYSTEMS CONSTITUTIONAL: Denies fevers, chills, or night sweats. No unintentional weight loss reported. NEUROLOGICAL: Patient is bedbound,paraplegic to both lower extremities and complained of left arm pain and swollen Denies headache, ENT: No hearing loss, otalgia, otorrhea, rhinitis, rhinorrhea, hoarseness, or sore throat. CARDIOVASCULAR: Denies any exertional angina, dyspnea on exertion, orthopnea, paroxysmal nocturnal dyspnea, palpitations, life-threatening arrhythmias, claudication. PULMONARY: Denies any shortness of breath, cough, phlegm/sputum, hemoptysis, pleuritic chest pain. SLEEP: Denies morning headaches, daytime somnolence or napping. Denies difficulty falling asleep, staying asleep, waking from sleep. Denies knowledge of snoring. GASTROINTESTINAL: Denies any type of dysphagia to either liquids or solids. Denies nausea, vomiting, pyrosis, early satiety, abdominal pain, diarrhea, constipation, or changes in stool consistency or caliber. Denies coffee-ground emesis, hematemesis, hematochezia, or melanotic stools. GENITOURINARY: Denies frequency, urgency, nocturia, hematuria and dysuria ENDOCRINOLOGIC: Denies polyuria, polydipsia, polyphagia or heat/cold intolerances. HEMATOLOGIC: Denies thrombophilia/previous clots, or coagulopathy/bleeding disorders. ONCOLOGIC: Denies personal history of malignancy. DERMATOLOGIC:Non healing sacral ulcer S/P debridement with JAMARI in place. PSYCHIATRIC: Denies any suicidal or homicidal ideation. Denies hallucinations. PHYSICAL EXAM GENERAL APPEARANCE: The patient is awake, alert, and oriented, in no acute cardiopulmonary distress. NEUROLOGICAL: paraplegic to both lower extremities.left arm contracted and both lower extremities HEENT: Face is symmetric. Pupils are equal and reactive. Extraocular movements are intact. NECK: Supple. No JVD. No thyromegaly. No submental, submandibular, pre- /postauricular, occipital or supraclavicular lymphadenopathy. CHEST: Normal chest expansion. No Telemetry. LUNGS: Absence of any rales, rhonchi or any wheezing. CARDIOVASCULAR: Regular. S1 and S2 normal. No appreciable rubs, murmurs or gallops. ABDOMEN: Soft, nontender, and nondistended. There is no rebound, voluntary guarding, or rigidity. : Deferred. Lowery. EXTREMITIES: Good capillary refill.Both hands swollen and left armn swollen as well SKIN: Surgical incision to sacral area S/P debridement and skin flap with JAMARI drain placement .Redness to both hands Vital Signs (last 8hr) Date Time Temp Pulse Resp B/P (MAP) Pulse Ox O2 Delivery O2 Flow Rate FiO2 07/30/24 16:00 97.9 71 19 119/67 99 Room Air 07/30/24 12:17 97.2 69 19 130/50 96 Nasal Cannula LABS: Laboratory: Test 07/30/24 15:15 07/30/24 12:06 07/30/24 05:06 Range/Units Whole Blood Glucose 261 #H 70-110 MG/DL Prothrombin Time 11.4 9.6-11.6 SEC Prothromb Time International Ratio 1.02 0.85-1.15 Bedside Glucose Comment Notified Nurse Current Medications Medications (Trade) Dose Ordered Sig/Luz Maria Route PRN Reason Start Time Stop Time Status Last Admin Dose Admin Acetaminophen (TYLenol 325MG TAB) 650 mg Q6H PRN PO MILD PAIN (1-3) 07/15/24 19:30 08/14/24 19:29 07/24/24 19:52 650 MG Amlodipine Besylate (NorvASC 5MG TAB) 5 mg DAILY PO 07/16/24 09:00 08/15/24 08:59 07/30/24 08:46 5 MG Bisacodyl (DulcoLAX) 10 mg DAILY PRN RC CONSTIPATION 07/17/24 11:00 08/16/24 10:59 07/30/24 16:44 10 MG Dextrose (D50w) 50 ml AD PRN IV HYPOGLYCEMIA PROTOCOL 07/22/24 21:00 08/21/24 20:59 Docusate Sodium (COLace 100MG CAP) 100 mg BID PO 07/15/24 21:00 08/14/24 20:59 07/30/24 08:46 100 MG Ferrous Sulfate (Ferrous Sulfate) 325 mg DAILY PO 07/25/24 12:30 08/24/24 12:29 07/30/24 08:47 325 MG Gabapentin (NEURontin 300 MG CAP) 300 mg DAILY PO 07/27/24 09:00 08/26/24 08:59 07/30/24 08:47 300 MG Gabapentin (NEURontin 300 MG CAP) 600 mg HS PO 07/26/24 21:00 08/25/24 20:59 07/29/24 20:21 600 MG Glucagon (Glucagon 1mg Kit) 1 mg AD PRN IM HYPOGLYCEMIA PROTOCOL 07/22/24 21:00 08/21/24 20:59 Heparin Sodium (Porcine) (HEParin 5,000 UNIT VIAL) 5,000 unit Q12H SQ 07/22/24 23:00 08/21/24 22:59 07/30/24 11:59 5,000 UNIT Home Med (Home Medication) (Linaclotide (Linzess) 145 MCG) Q3D PO 07/26/24 13:00 08/25/24 12:59 Home Med (Home Medication) (linzess 290 MCG) DAILYPRN PRN PO CONSTIPATION 07/17/24 12:30 08/16/24 12:29 07/18/24 11:39 1 EACH Hydrochlorothiazide (hydroCHLOROthiazide 25MG) 25 mg DAILY PO 07/16/24 09:00 08/15/24 08:59 07/30/24 08:47 25 MG Insulin Human Regular (humuLIN R 100 UNIT/ML 3ML) INSULIN SLIDING SCAL... ACHS SQ 07/22/24 21:00 08/21/24 20:59 07/30/24 16:54 5 UNIT Lactulose (Constulose 20gm/ 30ml Udcup) 20 gm BID PRN PO CONSTIPATION 07/17/24 11:00 08/16/24 10:59 07/30/24 13:06 20 GM Levofloxacin (LEvaquIN 500MG TAB) 250 mg DAILY PO 07/27/24 09:00 07/26/24 14:00 DC Levofloxacin (LEvaquIN 500MG TAB) 500 mg DAILY PO 07/27/24 09:00 07/27/24 12:56 DC 07/27/24 09:08 500 MG Losartan Potassium (CozAAR 100MG TAB) 100 mg DAILY PO 07/16/24 09:00 08/15/24 08:59 07/30/24 08:47 100 MG Magnesium Sulfate 50 ml @ 0 mls/hr PROTOCOL PRN IV OTHER [SEE ORDER COMMENTS] 07/22/24 21:00 08/21/24 20:59 Metformin HCl (glucoPHAGE) 500 mg DAILYDINNER PO 07/16/24 17:00 07/25/24 10:07 DC 07/22/24 18:42 500 MG Miscellaneous Medication (Losartan/ Hydrochlorothiazide (Losartan-Hctz 100-25 mg Tab)) 1 tab DAILY PO 07/16/24 09:00 08/15/24 08:59 UNV Piperacillin Sod/ Tazobactam Sod (Zosyn 3.375gm+NS 50ml) 3.375 gm Q8H IV 07/21/24 17:00 07/23/24 16:59 DC 07/23/24 09:55 3.375 GM Piperacillin Sod/ Tazobactam Sod (Zosyn 3.375gm+NS 50ml) 3.375 gm Q8H IV 07/27/24 13:00 07/29/24 20:00 DC 07/29/24 15:02 3.375 GM Piperacillin Sod/ Tazobactam Sod (Zosyn 3.375gm+NS 50ml) 3.375 gm Q8H IV 07/30/24 00:00 08/09/24 00:00 07/30/24 16:44 3.375 GM Potassium Chloride 100 ml @ 100 mls/hr AD PRN IV POTASSIUM PROTOCOL 07/22/24 21:00 08/21/24 20:59 Potassium Chloride (K-Dur/Klor-Con 20meq) 20 meq AD PRN PO POTASSIUM PROTOCOL 07/22/24 21:00 08/21/24 20:59 Potassium Chloride (KCl 10% Elixir 20meq/15ml) 20 meq AD PRN PO POTASSIUM PROTOCOL 07/22/24 21:00 08/21/24 20:59 Sennosides (Senna) 3 tab DAILY PRN PO CONSTIPATION 07/17/24 11:00 08/16/24 10:59 07/30/24 08:49 3 TAB DIAGNOSTICS / RADIOLOGY: [ ] ASSESSMENT: Non healing sacral ulcer S/P debridement and skin advancement flaps for closure with JAMARI drain placement on 07/15/2024 performed by Acute anemia POA Hyponatremia POA Uncontrolled Diabetes POA Neurogenic bladder POA Left arm pain POA Incomplete paraphlegia POA PLAN: Will continue to admit patient in medical surgical floor Will continue IV Antibiotic Will start on consistent carb diet Will check blood sugar AC and HS and start on insulin sliding scale with hypoglycemia protocol Will replace electytrolytes as needed per protocol Will check labs in am Continue admission orders per primary Further recommendations to follow depending upon hospitalization course Case discussed with the attending MD and came up with the above treatment and plan of care RESHMA OROZCO MD Jul 30, 2024 18:45
--- NOTE | 2024-07-30 19:58 | HMCIMG ---
INDICATION: To verify placement of PICC Line. TECHNIQUE: CHEST 1VW COMPARISON: 07/30/2024 FINDINGS/IMPRESSION: Left PICC line terminating in the SVC. The remainder of the study is stable. Mild degenerative changes of the spine. The visualized upper abdomen appears unremarkable.
[2024-07-30 20:23] VITALS: BP 130/59; PULSE 70; RESP 17; TEMP 98
[2024-07-31 00:14] VITALS: BP 133/54; PULSE 63; RESP 20; TEMP 98.6
[2024-07-31 04:39] VITALS: BP 100/50; PULSE 77; RESP 18; TEMP 98.2
[2024-07-31 07:22] VITALS: BP 95/47; PULSE 73; RESP 18; TEMP 98.7
--- NOTE | 2024-07-31 10:25 | PN ---
This is an 78-year-old male status post sharp excisional debridement with skin flap closure Interval history: This 78-year-old male seen in his room resting Wound examined today and sutures loosening up Patient with PICC line placed Wound care being performed by nursing daily Labs and vitals stable Nursing continues with positional changes of patient to avoid pressure on surgical site Currently pending acceptance to residential facility Physical exam General: Awake alert and oriented Heart: Regular rate and rhythm} Lungs: Clear to auscultation no distress Abdomen: [Soft, nontender, nondistended Sacral wound with sutures in place but loosening. Assessment : This is an 78-year-old male status post sharp excisional debridement with skin flap closure Plan: Continue with current wound care by nursing with cleaning wound with Vashe and dry dressings Await for acceptance into residential facility Patient to be scheduled for follow up with Dr. Santos is office for continued management of wound Dr. Santos updated in patient's status Vitals/Labs Vital Signs Date Time Temp Pulse Resp B/P (MAP) Pulse Ox O2 Delivery O2 Flow Rate FiO2 07/31/24 07:22 98.8 73 18 95/47 97 Room Air 07/30/24 20:00 0 21 Medications Current Medications Cefazolin Sodium 2 gm STK-MED ONCE .ROUTE; Start 07/15/24 at 07:43; Stop at 07:49; Status DC Sodium Chloride 1,000 ml @ As Directed STK-MED ONCE IV; Start 07/15/24 at 07:43; Stop 07/15/24 at 07:49; Status DC Cefazolin Sodium 2 gm STK-MED ONCE .ROUTE; Start 07/15/24 at 07:44; Stop 07/15/24 at 07:49; Status DC Sodium Chloride 1,000 ml @ As Directed STK-MED ONCE IV Last administered on 07/15/24at 09:08; Start 07/15/24 at 07:44; Stop 07/15/24 at 07:49; Status DC Lidocaine HCl 100 mg STK-MED ONCE .ROUTE; Start 07/15/24 at 10:15; Stop 07/15/24 at 10:15; Status DC Dexamethasone Sodium Phosphate 4 mg STK-MED ONCE .ROUTE; Start 07/15/24 at 10:15; Stop 07/15/24 at 10:15; Status DC Ondansetron HCl 4 mg STK-MED ONCE .ROUTE; Start 07/15/24 at 10:15; Stop 07/15/24 at 10:15; Status DC Propofol 200 mg STK-MED ONCE IV; Start 07/15/24 at 10:15; Stop 07/15/24 at 10:16; Status DC Rocuronium [place] 50 mg STK-MED ONCE .ROUTE; Start 07/15/24 at 10:16; Stop 07/15/24 at 10:16; Status DC Fentanyl Citrate 100 mcg STK-MED ONCE .ROUTE; Start 07/15/24 at 10:16; Stop 07/15/24 at 10:16; Status DC Cefazolin Sodium 2 gm STK-MED ONCE IVPB Last administered on 07/15/24at 10:31; Start 07/15/24 at 10:31; Stop 07/15/24 at 11:12; Status DC Glycopyrrolate 1 mg STK-MED ONCE .ROUTE; Start 07/15/24 at 11:32; Stop 07/15/24 at 11:32; Status DC Neostigmine Methylsulfate 10 mg STK-MED ONCE IV; Start 07/15/24 at 11:32; Stop 07/15/24 at 11:32; Status DC Acetaminophen 650 mg Q6H PRN PO Last administered on 07/24/24at 19:52; Start 07/15/24 at 19:30; Stop 08/14/24 at 19:29 Docusate Sodium 100 mg BID PO Last administered on 07/31/24at 09:51; Start 07/15/24 at 21:00; Stop 08/14/24 at 20:59 Metformin HCl 500 mg DAILYDINNER PO Last administered on 07/22/24at 18:42; Start 07/16/24 at 17:00; Stop 07/25/24 at 10:07; Status DC Miscellaneous Medication 1 tab DAILY PO; Start 07/16/24 at 09:00; Stop 08/15/24 at 08:59; Status UNV Amlodipine Besylate 5 mg DAILY PO Last administered on 07/30/24at 08:46; Start 07/16/24 at 09:00; Stop 08/15/24 at 08:59 Losartan Potassium 100 mg DAILY PO Last administered on 07/30/24at 08:47; Start 07/16/24 at 09:00; Stop 08/15/24 at 08:59 Hydrochlorothiazide 25 mg DAILY PO Last administered on 07/30/24at 08:47; Start 07/16/24 at 09:00; Stop 08/15/24 at 08:59 Sennosides 3 tab DAILY PRN PO Last administered on 07/30/24at 08:49; Start 07/17/24 at 11:00; Stop 08/16/24 at 10:59 Lactulose 20 gm BID PRN PO Last administered on 07/30/24at 13:06; Start 07/17/24 at 11:00; Stop 08/16/24 at 10:59 Bisacodyl 10 mg DAILY PRN RC Last administered on 07/30/24at 16:44; Start 07/17/24 at 11:00; Stop 08/16/24 at 10:59 Home Med (linzess 290 MCG) DAILYPRN PRN PO Last administered on 07/18/24at 11:39; Start 07/17/24 at 12:30; Stop 08/16/24 at 12:29 Piperacillin Sod/ Tazobactam Sod 3.375 gm Q8H IV Last administered on 07/23/24at 09:55; Start 07/21/24 at 17:00; Stop 07/23/24 at 16:59; Status DC Tramadol HCl 50 mg ONCE ONCE PO Last administered on 07/22/24at 21:07; Start 07/22/24 at 20:00; Stop 07/22/24 at 20:01; Status DC Insulin Human Regular INSULIN SLIDING SCAL... ACHS SQ Last administered on 07/30/24at 19:51; Start 07/22/24 at 21:00; Stop 08/21/24 at 20:59 Dextrose 50 ml AD PRN IV; Start 07/22/24 at 21:00; Stop 08/21/24 at 20:59 Glucagon 1 mg AD PRN IM; Start 07/22/24 at 21:00; Stop 08/21/24 at 20:59 Potassium Chloride 100 ml @ 100 mls/hr AD PRN IV; Start 07/22/24 at 21:00; Stop 08/21/24 at 20:59 Potassium Chloride 20 meq AD PRN PO; Start 07/22/24 at 21:00; Stop 08/21/24 at 20:59 Potassium Chloride 20 meq AD PRN PO; Start 07/22/24 at 21:00; Stop 08/21/24 at 20:59 Magnesium Sulfate 50 ml @ 0 mls/hr PROTOCOL PRN IV; Start 07/22/24 at 21:00; Stop 08/21/24 at 20:59 Acetaminophen/ Hydrocodone Bitart 2 tab ONCE ONCE PO Last administered on 07/22/24at 22:42; Start 07/22/24 at 23:00; Stop 07/22/24 at 23:01; Status DC Heparin Sodium (Porcine) 5,000 unit Q12H SQ Last administered on 07/30/24at 22:04; Start 07/22/24 at 23:00; Stop 08/21/24 at 22:59 Ferrous Sulfate 325 mg DAILY PO Last administered on 07/31/24at 09:51; Start 07/25/24 at 12:30; Stop 08/24/24 at 12:29 Levofloxacin 500 mg ONCE ONCE PO; Start 07/25/24 at 12:30; Stop 07/26/24 at 12:08; Status DC Levofloxacin 250 mg DAILY PO; Start 07/27/24 at 09:00; Stop 07/26/24 at 14:00; Status DC Levofloxacin 500 mg ONCE ONCE PO Last administered on 07/26/24at 13:55; Start 07/26/24 at 12:30; Stop 07/26/24 at 12:31; Status DC Gabapentin 300 mg DAILY PO Last administered on 07/31/24at 09:51; Start 07/27/24 at 09:00; Stop 08/26/24 at 08:59 Gabapentin 600 mg HS PO Last administered on 07/30/24at 19:50; Start 07/26/24 at 21:00; Stop 08/25/24 at 20:59 Home Med (Linaclotide (Linzess) 145 MCG) Q3D PO; Start 07/26/24 at 13:00; Stop 08/25/24 at 12:59 Levofloxacin 500 mg DAILY PO Last administered on 07/27/24at 09:08; Start at 09:00; Stop 07/27/24 at 12:56; Status DC Piperacillin Sod/ Tazobactam Sod 3.375 gm Q8H IV Last administered on 07/29/24at 15:02; Start 07/27/24 at 13:00; Stop 07/29/24 at 20:00; Status DC Gadoterate Meglumine 10 mmol STK-MED ONCE IV; Start 07/28/24 at 16:39; Stop 07/28/24 at 16:39; Status DC Piperacillin Sod/ Tazobactam Sod 3.375 gm Q8H IV Last administered on 07/31/24at 09:51; Start 07/30/24 at 00:00; Stop 08/09/24 at 00:00 REMI HALE Jr. Jul 31, 2024 10:25
[2024-07-31 11:51] VITALS: BP 103/41; PULSE 69; RESP 17; TEMP 98.3
--- NOTE | 2024-07-31 14:17 | DS ---
Discharge Summary Hospital Course Summary: 78 y/m with decubitus ulcer and is S/P after excision of decubitus ulcer and primary closure. Medically stable and can be discharged when placement secured per surgery Wound Care consulted and evaluating wound making no recommendations for wound VAC due to proximity to anus and high likelihood of contamination JAMARI drain removed Recommendations made for wet-to-dry with a Vashe daily On Zosyn MRI reviewed with no osteomyelitis but possible subcutaneous abscess. Suregry with no plans for intervention and recommend continuing antibiotics and wound pulmonary care nurse(s): Surgery/ID Assessment/Plan: ASSESSMENT: Non healing sacral ulcer S/P debridement and skin advancement flaps for closure with JAMARI drain placement on 07/15/2024 performed by Acute anemia POA Hyponatremia POA Uncontrolled Diabetes POA Neurogenic bladder POA Left arm pain POA Incomplete paraphlegia POA PLAN: Will continue to admit patient in medical surgical floor Will continue IV Antibiotic Will start on consistent carb diet Will check blood sugar AC and HS and start on insulin sliding scale with h ypoglycemia protocol Will replace electytrolytes as needed per protocol Will check labs in am Continue admission orders per primary Further recommendations to follow depending upon hospitalization course Case discussed with the attending MD and came up with the above treatment and plan of USP Medications: Reported Medications Linaclotide (Linzess) 145 Mcg Capsule, 145 MCG PO Q3D, CAP 07/26/24 Gabapentin (Neurontin) 300 Mg Capsule, 1 CAP PO DAILY for 30 Days, #90 CAP 0 Refills 07/23/24 Gabapentin (Neurontin) 300 Mg Capsule, 2 CAP PO HS for 30 Days, #90 CAP 0 Refi lls 07/23/24 [amlodipine] No Conflict Check, 5 MG PO DAILY 07/15/24 [levothyroxine] No Conflict Check 07/15/24 Losartan/Hydrochlorothiazide (Losartan-Hctz 100-25 mg Tab) 100 Mg-25 Mg Tablet, 1 TAB PO DAILY for 30 Days, #30 TAB 0 Refills 07/15/24 Metformin HCl (Metformin HCl) 500 Mg Tablet, 500 MG PO DAILYDINNER, TAB 07/15/24 Time spent arranging discharge: 31-60 minutes RESHMA OROZCO MD Jul 31, 2024 14:17
[2024-07-31 15:30] VITALS: BP 121/59; PULSE 63; RESP 16; TEMP 98
--- NOTE | 2024-07-31 18:20 | NUR ---
1715 Report given to Luciana SIMONS of [facility] via phone call at this time, all questions answered. 1730 EMS services called and requested at this time, patient pending bulk picker.
--- NOTE | 2024-08-01 05:36 | PN ---
INFECTIOUS DISEASE FOLLOWUP NOTE DATE OF SERVICE: 07/31/2024 SUBJECTIVE: The patient is seen and examined at bedside today. No itchiness. No fever, no chills. No bleeding tendency. Bedbound debility. PHYSICAL EXAMINATION: VITAL SIGNS: Temperature 98.3. EYES: No icterus. Pupils equal and reactive. HENT: No oral thrush seen. Moist oral mucosa. NECK: Supple. No JVD or thyromegaly. LUNGS: Good air entry. No rales, no rhonchi. CARDIOVASCULAR: S1, S2 regular. No murmur heard. ABDOMEN: Full, soft, nontender. Bowel sounds are present. CENTRAL NERVOUS SYSTEM: The patient is awake, alert . SKIN: No rashes. LYMPHATIC: No peripheral lymphadenopathy. BACK: Stage 4 ulcer in the sacrococcygeal area. ASSESSMENT: An 78-year-old male with multiple problems, including: * Sepsis. * Stage 4 sacrococcygeal ulcer. * Polymicrobic infection. * Hyponatremia. * Diabetes mellitus. * Anemia. * Renal failure. * Paraplegia in lower extremities. PLAN: * Continue DVT prophylaxis. * Continue Zosyn. * Continue pain management. * Continue DVT prophylaxis. * Monitor electrolytes. * Continue antiemetic. * Continue GI prophylaxis. TID: [id number] RECEIPT: [id number]
== END 2024-07-31 19:37 | DRG 854 ==
LOC: DAH 07:54 → OBSVTOIN 07:55 → DAH 07:55 → DAHIP 07:55 → EDSTATUS 12:00 → 4CH 13:34
PROVIDERS: ADMIT Student in an Organized Health Care Education/Training Program; ATTEND Student in an Organized Health Care Education/Training Program
PROC: 0JB70ZZ Excision of Back Subcutaneous Tissue and Fascia, Open Approach (ICD-10-PCS; 2024-07-15)
PROC: 0HX8XZZ Transfer Buttock Skin, External Approach (ICD-10-PCS; principal; 2024-07-15 10:15)
PROC: 02HV33Z Insertion of Infusion Device into Superior Vena Cava, Percutaneous Approach (ICD-10-PCS; 2024-07-30)
DX: A41.9 Sepsis, unspecified organism (principal); E87.1 Hypo-osmolality and hyponatremia; I82.611 Acute embolism and thrombosis of superficial veins of right upper extremity; G82.22 Paraplegia, incomplete; L98.428 Non-pressure chronic ulcer of back with other specified severity; D64.9 Anemia, unspecified; N31.9 Neuromuscular dysfunction of bladder, unspecified; E11.65 Type 2 diabetes mellitus with hyperglycemia; B95.2 Enterococcus as the cause of diseases classified elsewhere; E03.9 Hypothyroidism, unspecified; E78.5 Hyperlipidemia, unspecified; I10 Essential (primary) hypertension; N19 Unspecified kidney failure; Z74.01 Bed confinement status; Z82.49 Family history of ischemic heart disease and other diseases of the circulatory system; Z83.3 Family history of diabetes mellitus
CPT/HCPCS: 36415; 36569; 71045; 72197; 73080; 80048; 80053; 80061; 82550; 82948; 83036; 83540; 83550; 83605; 83735; 84145; 85025; 85610; 85651; 85730; 86140; 87040; 87070; 87076; 87086; 87186; 93005; 93970; A4606; C1894; G0378; J1100; J1644; J1815; J2003; J2405; J2543; J2704; J2710; J3010; J3490; J7030; A4213; A4215; A4216; A4221; A4222; A4223; A4600; A4663; A6260; A9575; J0690